=== PATIENT | female | born 2000 | race Caucasian/White ===

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

== ENCOUNTER → 2022-10-16 | Outpatient (CLI) | payer OTHER, SELFPAY ==
[2022-10-16 16:37] LABS: Erythrocyte Sedimentation Rate 1 mm/hr (0-30)
[2022-10-16 17:47] LABS: Amylase 59 U/L (25-115); CRP < 2.90 mg/L (0.0-3.0); Ferritin 33 ng/mL (8-252); Iron Binding Capacity,Total 385 ug/dL (250-450); LDH 166 U/L (84-246); Lipase 43 U/L (13-75); T4 Free Direct 1.01 ng/dL (0.76-1.46); Thyroid Stim Hormone (TSH) 0.82 uIU/mL (0.358-3.74)
[2022-10-22 22:06] LABS: Anti-Centromere B Ab <0.2 AI (0.0-0.9); Anti-Chromatin 0.2 AI (0.0-0.9); Anti-Jo <0.2 AI (0.0-0.9); Anti-Scleroderma-70 AB <0.2 AI (0.0-0.9); Anti-dsDNA Ab 1 IU/mL (0-9); Beef <0.10 kU/L (Class 0); Chocolate <0.10 kU/L (Class 0); Clam <0.10 kU/L (Class 0); Codfish <0.10 kU/L (Class 0); Corn <0.10 kU/L (Class 0); Egg, White <0.10 kU/L (Class 0); Egg, Whole <0.10 kU/L (Class 0); Milk (Cow) <0.10 kU/L (Class 0); Peanut <0.10 kU/L (Class 0); Pork <0.10 kU/L (Class 0); RNP Ab 1.1 AI (0.0-0.9); SCALLOP <0.10 kU/L (Class 0); SESAME SEED <0.10 kU/L (Class 0); SJOGREN'S Anti-SS-A test < 0.2 AI (0.0-0.9); SJOGREN'S Anti-SS-B test < 0.2 AI (0.0-0.9); Shrimp <0.10 kU/L (Class 0); Smith Ab <0.2 AI (0.0-0.9); Soybean <0.10 kU/L (Class 0); Walnut, (Food) <0.10 kU/L (Class 0); Wheat <0.10 kU/L (Class 0)
[2022-10-23 00:06] LABS: Albumin 4.1 g/dL (2.9-4.4); Alpha-1-Globulins 0.2 g/dL (0.0-0.4); Alpha-2-Globulins 0.8 g/dL (0.4-1.0); Cytoplasmic Ab (C-ANCA) <1:20 titer (Neg:<1:20); Endomysial Antibody IgA Negative (Negative); Immunoglobulin A 117 mg/dL (87-352); Immunoglobulin E 3 IU/mL (6-495); Immunoglobulin G 1035 mg/dL (586-1602); Immunoglobulin M 91 mg/dL (26-217); PROEL- TOTAL PROTEIN 6.9 g/dL (6.0-8.5); Perinuclear Ab (P-ANCA) <1:20 titer (Neg:<1:20); t-Transglutaminase IgA <2 U/mL (0-3)
== END | disposition home or self-care (01) ==
PROVIDERS: PCP Pediatrics; Referring Provider Internal Medicine Gastroenterology; Visit Provider Internal Medicine Gastroenterology
DX: R10.9 Unspecified abdominal pain (principal)
CPT/HCPCS: 36415; 82150; 82728; 82784; 82785; 83516; 83550; 83615; 83690; 84165; 84439; 84443; 85652; 86003; 86005; 86140; 86225; 86235; 86255; 86256; 86334

== ENCOUNTER → 2023-09-07 | Outpatient (CLI) | payer OTHER, SELFPAY | END | disposition home or self-care (01) | PROVIDERS: Visit Provider Physician Assistant | DX: N30.01 Acute cystitis with hematuria (principal) | CPT/HCPCS: 87086 ==

== ENCOUNTER → 2023-10-26 | Outpatient (CLI) | payer OTHER, SELFPAY ==
[2023-10-26 16:46] LABS: Mucous, Urine 0 SEEN /hpf (<or=2+)
[2023-10-26 17:23] LABS: Color, Urine Yellow (Yellow); Glucose, Dipstick Normal (Normal); Ketone-Dipstick Negative (Negative); Leukocyte Esterase-Dipstick 25 /ul (Negative); Nitrite-Dipstick Negative (Negative); Occult Blood-Urine 25 /ul (Negative); Protein-Dipstick Negative (Negative); Specific Gravity, Urine 1.015 (1.002-1.030); Urine Bilirubin Dipstick Negative (Negative); Urine Clarity Sl. Cloudy (Clear); Urine Urobilinogen Normal (Normal)
[2023-10-26 17:31] LABS: Amorphous Sediment 1+ URATE; Bacteria 1+ /hpf (None Seen); Red Blood Cells-Urine 0-5 SEEN /hpf (0-5); Squamous Epithelial Cells - UA 5-10 SEEN /hpf (5-10); Transitional Epithelial - Ur 0-5 SEEN /hpf (0-5); White Blood Cells 0-5 SEEN /hpf (0-5)
== END | disposition home or self-care (01) ==
LOC: LABSPEC 16:05
PROVIDERS: Referring Provider Physician Assistant; Visit Provider Physician Assistant
DX: R30.0 Dysuria (principal)
CPT/HCPCS: 81001; 87086; 87088

== ENCOUNTER 2023-12-22 21:55 | Emergency (ER) | payer OTHER, SELFPAY ==
[2023-12-22 21:56] VITALS: BP 148/98; PULSE 104; RESP 18; TEMP 36.1; O2SAT 100; BMI 26.2
--- NOTE | 2023-12-22 22:29 | EKG12_ITS ---
Test Reason : CP Blood Pressure : / mmHG Vent. Rate : 121 BPM Atrial Rate : 121 BPM P-R Int : 132 ms QRS Dur : 088 ms QT Int : 330 ms P-R-T Axes : 057 064 032 degrees QTc Int : 468 ms Sinus tachycardia Otherwise normal ECG Confirmed by GISELA NATHAN, STEPHEN ([id number]), newspaper managing editor TEMI ROMAN ([id number]) on 12/23/2023 1:56:20 PM Referred By: Confirmed By:STEPHEN HIGGINS MD
[2023-12-22] MEDS: Aspirin 81 MG TAB.CHEW 324 MG PO (22:33)
[2023-12-22 22:34] VITALS: O2SAT 100
--- NOTE | 2023-12-22 22:42 | RAD_ITS ---
STUDY: X-RAY CHEST REASON FOR EXAM: Female, 23 years old. chest pain TECHNIQUE: Single AP portable view of the chest. COMPARISON: None. FINDINGS: The lungs are clear and expanded. There is no demonstrated pleural abnormality. Normal size heart. Normal mediastinum and margie. Normal visualized pulmonary arteries. Normal visualized aortic arch and descending thoracic aorta. Normal visualized thoracic spine. Normal visualized ribs, clavicles, and shoulders. There is no demonstrated abnormality of the visualized soft tissue structures of the upper abdomen. RAD/Chest 1 View (Portable) IMPRESSION: Normal x-ray examination of the chest. Electronically Signed: Zana Mantilla MD at 23:04 EDT ,
[2023-12-22 22:46] LABS: Absolute Lymphocyte Count 3.36 X10^3/uL (0.83-4.51); Absolute Neutrophil Count 2.7 X10^3/uL (2.0-7.7); Basophil# 0.04 X10^3/uL; Basophil% 0.6 % (0-1); Eosinophil# 0.09 X10^3/uL; Eosinophils% 1.3 % (0-5); Hematocrit 41.3 % (37-47); Hemoglobin 13.9 g/dL (12.0-15.0); Lymphocyte # 3.36 X10^3/ul (0.83-4.51); Lymphocyte % 50.2 % (19-41); Mean Corp Hgb Conc 33.7 g/dL (32-36); Mean Corpuscular Hgb 29.4 pg (27.0-32.0); Mean Corpuscular Volume 87.5 fL (81-99); Mean Platelet Vol. 10.4 fl (6.2-12.0); Monocyte# 0.51 X10^3/uL; Monocyte% 7.6 % (0-10); NRBC Flagged by Analyzer 0 % (0-5); Neutrophil # 2.67 X10^3/uL (2.7-7.7); Platelet Count 233 K/mm3 (150-450); RBC Distribution Width CV 12.1 % (11.6-14.6); RBC Distribution Width SD 39.3 fl (35.1-43.9); Red Blood Count 4.72 M/mm3 (4.2-5.4); White Blood Count 6.7 K/mm3 (4.4-11.0)
[2023-12-22 22:56] LABS: D-Dimer Quantitative (DVT/PE) < 0.27 FEU/ug/m (0.27-0.49)
--- NOTE | 2023-12-22 23:05 | ED.VIS.CHEST ---
HPI History of Present Illness Chief Complaint: Chest Pain [facility] Medical History Pneumonia Head ache Gastrointestinal problem Bone fracture Urinary tract infection Concussion without loss of consciousness, initial encounter Asthma Home Medications ?Medication ?Instructions ?Recorded ?Last Taken ?Type drospirenone 3 mg-ethinyl 1 tab PO QDAY 10/06/23 Unknown History estradiol 0.02 mg tablet (Vestura (28)) sumatriptan succinate 25 mg tablet See Rx Instructions PO .COMPLEX 10/06/23 Unknown Rx (Imitrex) #10 tabs Allergy/AdvReac Type Severity Reaction Status Date / Time No Known Allergies Allergy Verified 12/22/23 21:56 Family History Father Type 1 diabetes Hypertension Mother Hypertension Grandfather Cancer prostate Grandmother Cancer uterine Surgical History History of reduction of closed dislocation H/O rhinoplasty Social History household members: family housing: house current occupational status: employed and 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 current occupation: [employer], attending [employer] Smoking Status: Never smoker Electronic Cigarette Use: not used alcohol intake: never substance use type: does not use what type of physical activity do you participate in: walking frequency: 3-4 times per week seatbelt use: always do you feel safe at home: Yes EXAM Physical Exam Const Vital Signs: 12/22/23 21:56 12/22/23 22:34 Temperature 97 F L Temperature Source Temporal Pulse Rate 104 H Respiratory Rate 18 Blood Pressure 148/98 H Blood Pressure Mean 114 Pulse Ox 100 100 Oxygen Delivery Method Room Air Room Air MDM MDM MDM Narrative Medical decision making narrative: HISTORY OF PRESENT ILLNESS: 23-year-old female presents with chest pain. She notes acute onset of left side chest pain is sharp worse with deep breath. It is not exertional. Denies any bleeding diathesis. Denies any cough fever chills. Denies any vomiting or diarrhea. Denies any family history of early premature cardiac . Denies smoking cigarettes endorses taking estrogen based from oral contraceptives. Patient denies sudden onset of pain, no tearing sensation, no migratory symptoms, no new numbness, weakness or loss of sensation. Patient denies family history or personal history of Marfan syndrome or Stormy-Danlos. The patient denies recent surgery in the last 4 weeks or immobilization in the last 3 days, denies previous diagnosis of DVT or PE, hemoptysis, unilateral leg swelling or malignancy with treatment the last 6 months. REVIEW OF SYSTEMS: All other systems reviewed and are negative except as noted in the history of present illness. At least 10 review of systems reviewed and are negative except as noted in history of present illness. PHYSICAL EXAM: Nursing triage notes reviewed, Vital signs reviewed Constitutional: please see mdm HENT: MMM Eyes: Pupils equal round and reactive to light, Extraocular muscles intact Neck: No stridor, no JVD, full neck ROM Lungs: Clear to auscultation, No wheezing or rales. No increased work of breathing, no conversational dyspnea, no accessory muscle use, no nasal flaring. No respiratory distress noted Heart: Regular rate and rhythm, No murmurs, No rubs and No gallops, 2+ distal pulses (radial, femoral, posterior tibial) in all extremities Abdomen: Soft, there is no tenderness, rigidity, rebound or guarding, no obvious peritoneal signs, no palpable pulsatile abdominal masses, no auscultated abdominal bruit : No CVAT Extremities: No edema Neuro: No focal neurological deficits, cranial nerves II through XII intact, 5/5 strength in all extremities. Intact sensation to light touch in all extremities, 2+ reflexes bilateral patella tendons. Normal gait. No ataxia. Skin: No rash or lesions noted MEDICAL DECISION MAKING: Chief Complaint: Chest pain External records reviewed: No recent adVanced imaging of the chest Factors affecting care: None Social determinants of health: Denies smoking or illicit drug use History obtained from others: Patient's mother Consults: none [facility] Narrative: The patient was initially tachycardic rate of 104 otherwise hemodynamically stable, afebrile and nontoxic-appearing. No focal cardiopulmonary abnormalities noted. I considered the following differential diagnosis: ACS, arrhythmia, anemia, electrolyte abnormality, pneumonia, pneumothorax, GI etiology, PE Patient was treated with initially with oral aspirin PE less likely given low risk Wells score. I consider obtaining a CT of the chest however thought this was not necessary given low risk Wells score and negative D-dimer. Aortic dissection is thought to be less likely given no sudden ripping or tearing pain, migratory pain, palpable pulse inequalities, no focal neurologic deficits concurrent with chest pain. Chance of dissection less than 04/1999. I considered obtaining a CTA of the chest abdomen pelvis however thought this not indicated given lack of findings as previously stated. Pericarditis less likely given no pathognomonic EKG changes (no diffuse ST elevations, CO depressions). GI etiology (i.e. Boerhaave syndrome) less likely given no chest or neck crepitus, no vomiting or forced retching. I obtained a broad lab and imaging workup to further elucidate etiology of patient's complaints including ruling out signs of ACS, arrhythmia, anemia, electrolyte abnormality, pneumonia, pneumothorax. ALL IMAGES (IF OBTAINED) HAVE BEEN PERSONALLY REVIEWED AND INTERPRETED BY MYSELF. EKG with initial rate of 121, sinus tachycardia, normal axis, normal intervals, no STEMI, no stigmata pericarditis, ARVD, WPW, Brugada syndrome CBC without leukocytosis, severe anemia, no thrombocytopenia. D-dimer negative making VTE less likely I have personally reviewed the patient's chest x-ray. Chest x-ray is unremarkable for pulmonary edema, pneumothorax, pneumonia or focal cardiopulmonary abnormality. BMP without septic electrolyte maladies, noted mild hypokalemia which was replaced with oral potassium, no JONNY High-sensitivity troponin is negative, no evidence of myocardial ischemia awaiting delta troponin I completed a HEART Score to screen for Major Adverse Cardiac Event (MACE) in this patient. The evidence indicates that the patient is very low risk for MACE and this is consistent with my clinical intuition. The risk of further workup or hospitalization for MACE is likely higher than the risk of the patient having a MACE. It is, therefore, in the patient?s best interest not to do additional emergent testing or to be hospitalized for MACE at this time. Shared Decision-Making No hospitalization indicated I have discussed with the patient my clinical impression and the result of the HEART Score to screen for MACE, as well as the risks of further testing and hospitalization. The HEART Score shows that the risk for MACE is less than 1%. Although the risk of MACE has not been completely eliminated, the risks of further testing or hospitalization for MACE likely exceed any potential benefit, and the patient agrees with not pursuing further emergent evaluation or hospitalization for MACE at this time. The patient and/or family, caregivers express understanding. The patient and/or family, caregivers agrees with the plan. Total critical care time today provided was at least 0 minutes. This excludes separately billable procedures. Critical care time (if documented) is secondary to the patient having high probability of clinically significant/life threatening deterioration in the patient's condition which required my urgent intervention. Impression: 1. Chest pain 2. Tachycardia 3. Hypokalemia Disposition: Pending delta troponin and p.m. physician disposition (if ultrasound is negative patient be appropriate discharge home. If positive will require reevaluation and final disposition) Narinder Barrera, Lab Data Labs: Laboratory Results - last 24 hr 12/22/23 22:18 WBC 6.7 RBC 4.72 Hgb 13.9 Hct 41.3 MCV 87.5 MCH 29.4 MCHC 33.7 RDW Std Deviation 39.3 RDW Coeff of Stuart 12.1 Plt Count 233 MPV 10.4 Immature Gran % (Auto) 0.300 Neut % (Auto) 40.0 L Lymph % (Auto) 50.2 H [place] % (Auto) 7.6 Eos % (Auto) 1.3 Baso % (Auto) 0.6 Absolute Neuts (auto) 2.7 Absolute Lymphs (auto) 3.36 Nucleated RBC % 0 D-Dimer Quant (PE/DVT) < 0.27 L Sodium 138 Potassium 3.2 L Chloride 104 Carbon Dioxide 27.0 Anion Gap 7 BUN 17 Creatinine 1.09 H Estim Creat Clear Calc 98.83 Est GFR (MDRD) Af Amer 81 Est GFR (MDRD) Non-Af 67 BUN/Creatinine Ratio 15.6 Glucose 94 Calcium 9.6 Troponin I High Sens < 3 L Radiography Diagnostic Testing: Clinical Impression(s) from Imaging Studies Chest X-Ray 12/22/23 22:42 IMPRESSION: Normal x-ray examination of the chest. Electronically Signed: Zana Mantilla MD at 23:04 EDT , Discharge Plan Triage Chief Complaint: Chest Pain ED Provider: Narinder Barrera Dx/Rx/DC Orders Prescriptions: No Action drospirenone-ethinyl estradiol [Vestura (28)] 3-0.02 mg tablet 1 tab PO QDAY sumatriptan succinate [Imitrex] 25 mg tablet See Rx Instructions PO .COMPLEX Qty: 10 0RF Rx Instructions: take 1 tab at onset of headache; if no relief may repeat 1 tab after at least 2 hrs; max = 4 tabs/24 hr PO Primary Care Provider: Benita Flores Referrals: Benita Flores MD [Primary Care Provider] - Print Language: Greek
[2023-12-22 23:06] LABS: Anion Gap 7 (5-15); BUN 17 mg/dL (7-18); BUN/Creat Ratio 15.6 RATIO (10-20); Calcium,Total 9.6 mg/dL (8.5-10.1); Chloride 104 mmol/L (98-107); Creatinine, Serum 1.09 mg/dL (0.55-1.02); EST Glomerular Filtration Rate 67 mL/min (>60); Est Glom Filt Rate - Afr Amer 81 mL/min (>60); Estimated Creatinine Clearance 98.83 ml/min; Glucose 94 mg/dL (74-106); Potassium 3.2 mmol/L (3.5-5.1); Sodium Level 138 mmol/L (136-145); Troponin-I HS (w/2H Reflex) < 3 pg/mL (3.0-54.0)
[2023-12-22] MEDS: Potassium Chloride Oral Tablet 20 MEQ 40 MEQ PO (23:28)
[2023-12-22 23:50] LABS: Bacteria 0 SEEN /hpf (None Seen); Mucous, Urine 0 SEEN /hpf (<or=2+); Red Blood Cells-Urine 0 SEEN /hpf (0-5); Squamous Epithelial Cells - UA 0 SEEN /hpf (5-10); White Blood Cells 0 SEEN /hpf (0-5)
[2023-12-22 23:56] LABS: Color, Urine Yellow (Yellow); Glucose, Dipstick Normal (Normal); Ketone-Dipstick Negative (Negative); Leukocyte Esterase-Dipstick Negative /ul (Negative); Nitrite-Dipstick Negative (Negative); Occult Blood-Urine 10 /ul (Negative); Protein-Dipstick Negative (Negative); Specific Gravity, Urine 1.005 (1.002-1.030); Urine Bilirubin Dipstick Negative (Negative); Urine Clarity Clear (Clear); Urine Urobilinogen Normal (Normal)
[2023-12-23 00:05] VITALS: BP 133/77; PULSE 85; RESP 16; O2SAT 100
[2023-12-23 00:24] LABS: Reflex Troponin-HS? (from REC) Y
[2023-12-23 00:50] LABS: Troponin-I HS < 3 pg/mL (3.0-54.0)
[2023-12-23 01:00] VITALS: BP 132/66; PULSE 90; RESP 16; TEMP 36.6; O2SAT 100
== END 2023-12-23 01:12 | disposition home or self-care (01) ==
PROVIDERS: Emergency Provider Emergency Medicine; PCP Internal Medicine; Visit Provider Emergency Medicine
DX: R07.9 Chest pain, unspecified (principal); E87.6 Hypokalemia; F17.210 Nicotine dependence, cigarettes, uncomplicated; R00.0 Tachycardia, unspecified
CPT/HCPCS: 71045; 80048; 81001; 84484; 85025; 85379; 93005; 99284; A4216

== ENCOUNTER → 2024-01-17 | Outpatient (CLI) | payer OTHER, SELFPAY ==
[2024-01-24 09:06] LABS: HPV Reflexed? NOT INDICATED
== END | disposition home or self-care (01) ==
PROVIDERS: PCP Internal Medicine; Referring Provider Obstetrics & Gynecology; Visit Provider Obstetrics & Gynecology
DX: Z12.4 Encounter for screening for malignant neoplasm of cervix (principal)
CPT/HCPCS: 88175; G0145

== ENCOUNTER 2024-01-20 17:56 | Emergency (ER) | payer OTHER, SELFPAY ==
[2024-01-20 17:58] VITALS: BP 129/86; PULSE 113; RESP 18; TEMP 36.3; O2SAT 100; BMI 26.0
--- NOTE | 2024-01-20 19:13 | EKG12_ITS ---
Test Reason : DYSRHYTHMIA Blood Pressure : / mmHG Vent. Rate : 101 BPM Atrial Rate : 101 BPM P-R Int : 138 ms QRS Dur : 088 ms QT Int : 340 ms P-R-T Axes : 067 082 057 degrees QTc Int : 440 ms Sinus tachycardia Otherwise normal ECG Confirmed by GISELA NATHAN, STEPHEN ([id number]), editor continuity and script OSMAR SINHA ([id number]) on 01/21/2024 2:05:38 PM Referred By: Francisco Lugo Confirmed By:STEPHEN HIGGINS MD
--- NOTE | 2024-01-20 19:35 | RAD_ITS ---
INDICATION: chest pain EXAMINATION/TECHNIQUE: X-RAY - XR Chest 1 View COMPARISON: None. FINDINGS: The lungs are clear. The cardiomediastinal silhouette is unremarkable. No pleural effusion or pneumothorax. No acute osseous abnormalities. RAD/Chest 1 View (Portable) IMPRESSION: No acute radiographic abnormalities. Electronically Signed: Ramiro Parrish MD at 20:43 EDT ,
[2024-01-20 19:43] VITALS: O2SAT 100
[2024-01-20] MEDS: 0.9% Normal Saline (1000mL) 1,000 ML 999 ML IV (19:43)
[2024-01-20 19:48] LABS: Absolute Lymphocyte Count 1.29 X10^3/uL (0.83-4.51); Absolute Neutrophil Count 3.8 X10^3/uL (2.0-7.7); Basophil# 0.05 X10^3/uL; Basophil% 0.9 % (0-1); Eosinophil# 0.01 X10^3/uL; Eosinophils% 0.2 % (0-5); Hematocrit 43.3 % (37-47); Hemoglobin 14.8 g/dL (12.0-15.0); Lymphocyte # 1.29 X10^3/ul (0.83-4.51); Lymphocyte % 23.4 % (19-41); Mean Corp Hgb Conc 34.2 g/dL (32-36); Mean Corpuscular Hgb 29.3 pg (27.0-32.0); Mean Corpuscular Volume 85.7 fL (81-99); Mean Platelet Vol. 10.1 fl (6.2-12.0); Monocyte% 7.2 % (0-10); NRBC Flagged by Analyzer 0 % (0-5); Neutrophil # 3.76 X10^3/uL (2.7-7.7); Neutrophil % 68.1 % (47-70); Platelet Count 259 K/mm3 (150-450); RBC Distribution Width CV 11.9 % (11.6-14.6); RBC Distribution Width SD 37.2 fl (35.1-43.9); Red Blood Count 5.05 M/mm3 (4.2-5.4); White Blood Count 5.5 K/mm3 (4.4-11.0)
--- NOTE | 2024-01-20 20:14 | EDS_ITS ---
HPI History of Present Illness Chief Complaint: Anxiety Narrative Narrative: Patient is a 24-year-old female with no known significant past medical history who presented to the emergency department the chief complaint of chest pain. Patient states that earlier this evening after coming home from school she developed left-sided chest pain and became very anxious and had a panic attack thought that she may be having a heart attack. Patient states that she is not a think this had before. Patient denies any recent travel history. Patient notes that her pain is improved. Patient states that she was sick about a week ago. [facility] Medical History Pneumonia Head ache Gastrointestinal problem Bone fracture Urinary tract infection Concussion without loss of consciousness, initial encounter Asthma Home Medications ?Medication ?Instructions ?Recorded ?Last Taken ?Type sumatriptan succinate 25 mg tablet See Rx Instructions PO .COMPLEX 10/06/23 Unknown Rx (Imitrex) #10 tabs drospirenone 3 mg-ethinyl 1 tab PO QDAY #28 tabs 01/17/24 Unknown Rx estradiol 0.02 mg tablet (Vestura (28)) escitalopram oxalate 10 mg tablet 10 mg PO DAILY 01/20/24 Unknown History Allergy/AdvReac Type Severity Reaction Status Date / Time No Known Allergies Allergy Verified 01/20/24 18:01 Family History Father Type 1 diabetes Hypertension Mother Hypertension Grandfather Cancer prostate Grandmother Cancer uterine Surgical History History of reduction of closed dislocation H/O rhinoplasty Social History adopted: No household members: family housing: house number of children: 0 current occupational status: employed and 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 current occupation: [employer], attending [employer] sexually active: Yes Smoking Status: Never smoker Electronic Cigarette Use: not used alcohol intake: never substance use type: does not use what type of physical activity do you participate in: walking frequency: 3-4 times per week seatbelt use: always do you feel safe at home: Yes additional social history: Boyfriend - Ab ROS ROS ED ROS Narrative Constitutional: Complains of lightheadedness denies fevers, chills, headaches, dizziness Eyes: Denies change in vision double vision blurry vision Cardiovascular: Denies chest pain or palpitations Respiratory: Denies coughing wheezing shortness of breath Abdomen: Denies any abdominal pain nausea vomit diarrhea : Denies any urinary symptoms Neurological: Denies any numbness, weakness, tingling Musculoskeletal: Denies back pain Skin: Denies rashes or lesions EXAM Physical Exam Narrative Exam Narrative: General: Patient lying in bed rest comfortably did not appear to be in acute distress Head: Atraumatic, normocephalic Eyes: PERRL bilateral, EOMI bilateral, no conjunctival injection noted Neck: Soft, supple, trach midline Cardiovascular: Patient tachycardic with a regular rhythm Respiratory: Clear to auscultation bilaterally Abdomen: Soft, nondistended, nontender to palpation can bowel sounds present x 4 Extremities: +5/5 strength noted in the bilateral lower extremities, no pedal edema no exam Neurological: Patient following commands knew that she was at [facility] years 2023 Skin: Warm, dry, intact Const Vital Signs: 01/20/24 17:58 01/20/24 19:43 Temperature 97.3 F L Temperature Source Oral Pulse Rate 113 H Respiratory Rate 18 Blood Pressure 129/86 H Blood Pressure Mean 100 Pulse Ox 100 100 Oxygen Delivery Method Room Air Room Air MDM MDM MDM Narrative Medical decision making narrative: Patient is a 24-year-old female who presents to the emergency department with a chief complaint of left-sided chest pain, lightheadedness. Patient will have ordered performed here on the differential diagnose includes but limited to ACS, anxiety, panic attack, pneumonia, upper respiratory infection second viral etiology. Once workup is obtained reviewed she will be reevaluated. Patient's for members at bedside states that there is no early cardiac in the family. Patient's CBC reviewed and was largely unremarkable no evidence leukocytosis white blood count normal at 5.5, hemoglobin stable 14.8, platelet count normal at 259. Patient sodium normal 139, potassium normal 3.5, creatinine was normal at 1.02. Patient's troponin was less than 3, TSH normal at 1.76. Patient's EKG reviewed and showed sinus tachycardia with a rate of 101 bpm. Patient's urinalysis reviewed and showed no evidence of infection negative test. Patient chest x-ray reviewed and showed no acute radiographic abnormalities. On reevaluation of the patient when I entered the room the patient's heart rate was noted to be normal at 92 beats per minutes. After further discussion with her she became anxious again and her heart rate was in the low 100s. After she calm down some while in the room her heart rate normalized again. Patient was encouraged to follow-up with her primary care physician outpatient setting. She was encouraged return with worsening symptoms or any concerns. Her and her family members at bedside are agreeable this plan would like to go home at this point time all question concerns answered she was discharged home in stable condition. Lab Data Labs: Laboratory Results - last 24 hr 01/20/24 01/20/24 18:09 19:35 WBC 5.5 RBC 5.05 Hgb 14.8 Hct 43.3 MCV 85.7 MCH 29.3 MCHC 34.2 RDW Std Deviation 37.2 RDW Coeff of [place] 11.9 Plt Count 259 MPV 10.1 Immature Gran % (Auto) 0.200 Neut % (Auto) 68.1 Lymph % (Auto) 23.4 Stewart % (Auto) 7.2 Eos % (Auto) 0.2 Baso % (Auto) 0.9 Absolute Neuts (auto) 3.8 Absolute Lymphs (auto) 1.29 Nucleated RBC % 0 Sodium 139 Potassium 3.5 Chloride 107 Carbon Dioxide 27.0 Anion Gap 5 BUN 17 Creatinine 1.02 Estim Creat Clear Calc 96.69 Est GFR (MDRD) Af Amer 87 Est GFR (MDRD) Non-Af 72 BUN/Creatinine Ratio 16.7 Glucose 121 H Calcium 9.5 Troponin I High Sens < 3 L TSH 1.760 Urine Color Yellow Urine Clarity Sl. Cloudy Urine pH 6.0 Ur Specific [place] 1.010 Urine Protein 500 H Urine Glucose (UA) Normal Urine Ketones Negative Urine Occult Blood 150 H Urine Nitrite Negative Urine Bilirubin Negative Urine Urobilinogen Normal Ur Leukocyte Esterase Negative Urine RBC 0 SEEN Urine WBC 0-5 SEEN Ur Squamous Epith Cells 5-10 SEEN Urine Bacteria 0 SEEN Urine Mucus 0 SEEN Urine Test Negative Radiography Diagnostic Testing: Clinical Impression(s) from Imaging Studies Chest X-Ray 01/20/24 19:35 IMPRESSION: No acute radiographic abnormalities. Electronically Signed: Ramiro Parrish MD at 20:43 EDT , Discharge Plan Triage Chief Complaint: Anxiety ED Provider: Francisco Lugo Dx/Rx/DC Orders Clinical Impression: Chest pain Prescriptions: No Action drospirenone-ethinyl estradiol [Vestura (28)] 3-0.02 mg tablet 1 tab PO QDAY Qty: 28 12RF sumatriptan succinate [Imitrex] 25 mg tablet See Rx Instructions PO .COMPLEX Qty: 10 0RF Rx Instructions: take 1 tab at onset of headache; if no relief may repeat 1 tab after at least 2 hrs; max = 4 tabs/24 hr PO escitalopram oxalate 10 mg tablet 10 mg PO DAILY Patient Comments: Pt. has not taken it yet Primary Care Provider: Benita Flores Referrals: Benita Flores MD [Primary Care Provider] - Activity Restrictions/Additional Instructions: Follow-up your primary care physician in the outpatient setting. Return with worsening symptoms or other concerns. Print Language: Danish Disposition Disposition: Home, Self Care
[2024-01-20 20:18] LABS: Anion Gap 5 (5-15); BUN 17 mg/dL (7-18); BUN/Creat Ratio 16.7 RATIO (10-20); Calcium,Total 9.5 mg/dL (8.5-10.1); Chloride 107 mmol/L (98-107); Creatinine, Serum 1.02 mg/dL (0.55-1.02); EST Glomerular Filtration Rate 72 mL/min (>60); Est Glom Filt Rate - Afr Amer 87 mL/min (>60); Estimated Creatinine Clearance 96.69 ml/min; Glucose 121 mg/dL (74-106); Potassium 3.5 mmol/L (3.5-5.1); Sodium Level 139 mmol/L (136-145); Troponin-I HS < 3 pg/mL (3.0-54.0)
[2024-01-20 20:30] LABS: Bacteria 0 SEEN /hpf (None Seen); Mucous, Urine 0 SEEN /hpf (<or=2+); Red Blood Cells-Urine 0 SEEN /hpf (0-5)
[2024-01-20 20:45] LABS: Color, Urine Yellow (Yellow); Glucose, Dipstick Normal (Normal); Ketone-Dipstick Negative (Negative); Leukocyte Esterase-Dipstick Negative /ul (Negative); Nitrite-Dipstick Negative (Negative); Urine Bilirubin Dipstick Negative (Negative); Urine Urobilinogen Normal (Normal)
[2024-01-20 20:48] LABS: Occult Blood-Urine 150 /ul (Negative); Protein-Dipstick 500 mg/dl (Negative); Urine Clarity Sl. Cloudy (Clear)
[2024-01-20 21:04] LABS: Internal QC Validated? YES +Cl - CLEAR BKGD; Pregnancy, Urine Negative Negative; Record Kit Lot#,Urine Preg 772476
[2024-01-20 21:08] LABS: Squamous Epithelial Cells - UA 5-10 SEEN /hpf (5-10); White Blood Cells 0-5 SEEN /hpf (0-5)
[2024-01-20 21:23] VITALS: BP 120/86; PULSE 98; RESP 16; TEMP 36.6; O2SAT 100
== END 2024-01-20 21:24 | disposition home or self-care (01) ==
PROVIDERS: Emergency Provider Emergency Medicine; PCP Internal Medicine; Referring Provider Emergency Medicine; Visit Provider Emergency Medicine
DX: F41.9 Anxiety disorder, unspecified (principal); R07.9 Chest pain, unspecified
CPT/HCPCS: 71045; 80048; 81001; 81025; 84443; 84484; 85025; 93005; 96360; 99285; J7030; A4216

== ENCOUNTER → 2024-01-26 | Outpatient (CLI) | payer OTHER, SELFPAY ==
[2024-01-26 10:21] LABS: Mucous, Urine 0 SEEN /hpf (<or=2+)
[2024-01-26 12:35] LABS: Color, Urine Yellow (Yellow); Glucose, Dipstick Normal (Normal); Ketone-Dipstick Negative (Negative); Leukocyte Esterase-Dipstick 25 /ul (Negative); Nitrite-Dipstick Negative (Negative); Occult Blood-Urine 10 /ul (Negative); Protein-Dipstick 15 mg/dl (Negative); Urine Bilirubin Dipstick Negative (Negative); Urine Clarity Sl. Cloudy (Clear); Urine Urobilinogen Normal (Normal)
[2024-01-26 12:59] LABS: Bacteria 2+ /hpf (None Seen); Red Blood Cells-Urine 0-5 SEEN /hpf (0-5); Squamous Epithelial Cells - UA 0-5 SEEN /hpf (5-10); White Blood Cells 0-5 SEEN /hpf (0-5)
[2024-01-26 13:15] LABS: Erythrocyte Sedimentation Rate 1 mm/hr (0-30)
[2024-01-26 13:36] LABS: ALB/GLOB Ratio 0.9 RATIO (0.9-2.4); AST(SGOT) 12 U/L (15-37); Alanine Aminotransfer ALT/SGPT 18 U/L (13-56); Albumin, Serum 3.7 g/dL (3.2-5.0); Alkaline Phosphatase 57 U/L (45-117); Anion Gap 9 (5-15); BUN 17 mg/dL (7-18); BUN/Creat Ratio 17.4 RATIO (10-20); CRP 6.15 mg/L (0.0-3.0); Calcium,Total 9.5 mg/dL (8.5-10.1); Chloride 105 mmol/L (98-107); Creatinine, Serum 0.98 mg/dL (0.55-1.02); EST Glomerular Filtration Rate 76 mL/min (>60); Est Glom Filt Rate - Afr Amer 91 mL/min (>60); Globulin 3.9 g/dL (2.2-4.2); Glucose 121 mg/dL (74-106); Potassium 4.1 mmol/L (3.5-5.1); Protein, Total 7.6 g/dL (6.4-8.2); Sodium Level 138 mmol/L (136-145)
[2024-01-27 16:10] LABS: Anti-Centromere B Ab <0.2 AI (0.0-0.9); Anti-Chromatin <0.2 AI (0.0-0.9); Anti-Jo <0.2 AI (0.0-0.9); Anti-Nuclear Antibody Test Positive (.); Anti-Scleroderma-70 AB <0.2 AI (0.0-0.9); Anti-dsDNA Ab 1 IU/mL (0-9); RNP Ab 0.9 AI (0.0-0.9); SJOGREN'S Anti-SS-A test < 0.2 AI (0.0-0.9); SJOGREN'S Anti-SS-B test < 0.2 AI (0.0-0.9); Smith Ab <0.2 AI (0.0-0.9)
== END | disposition home or self-care (01) ==
PROVIDERS: PCP Internal Medicine; Referring Provider Internal Medicine; Visit Provider Internal Medicine
DX: G43.109 Migraine with aura, not intractable, without status migrainosus (principal); R07.9 Chest pain, unspecified; R00.0 Tachycardia, unspecified; R80.9 Proteinuria, unspecified
CPT/HCPCS: 36415; 80053; 81001; 85652; 86038; 86140; 86225; 86235

== ENCOUNTER → 2024-02-15 | Outpatient (CLI) | payer OTHER, SELFPAY ==
[2024-02-15 09:39] LABS: Internal QC Validated? YES +Cl - CLEAR BKGD; Pregnancy, Serum, hCG Quali. NEGATIVE Negative
--- NOTE | 2024-02-15 13:19 | PCM.TILTTABL ---
Staff Staff: Lianet May and Vandana King Summary Pre Test Resting HR: 115 Pre Test Resting BP: 131/87 Minimum Test HR: 65 Maximum Test HR: 166 Minimum Test BP: 0/0 Maximum Test BP: 140/102 Reason for Test Termination: Syncope Physician Tilt Table Report Patient's Physicians Primary Care Physician: Benita Flores Indications/Diagnosis: Tachycardia Procedure Comments: Patient was brought to the noninvasive lab in the postabsorptive nonsedated state. Informed consent was obtained. Resting heart rate and blood pressure was obtained. The patient was then prepped in the 70 degree head upright tilt position. The heart rate immediately edith from 98 bpm 264 bpm and then to 166 bpm. Blood pressure was initially 131/87 and edith to a peak of 132/89. The patient then suddenly dropped her heart rate and blood pressure to the 70s became clammy and passed out. Patient was then put back in the recumbent position with heart rate improving back to 77 bpm and blood pressures remained in the 120s. Posttest the patient's heart rate was 99 bpm and blood pressure of 130/88 mmHg. Summary: Head upright tilt test suggestive of postural orthostatic tachycardia syndrome.
[2024-02-15 16:59] VITALS: BP 131/87
[2024-02-15 17:05] VITALS: BP 0/0; BP 140/102
== END | disposition home or self-care (01) ==
LOC: CVS 08:58
PROVIDERS: PCP Internal Medicine; Referring Provider Internal Medicine; Visit Provider Internal Medicine
DX: R00.0 Tachycardia, unspecified (principal)
CPT/HCPCS: 36415; 84703; 93660; J7040; A4216

== ENCOUNTER → 2024-05-04 | Outpatient (CLI) | payer BC, SELFPAY | END | disposition home or self-care (01) | LOC: LABSPEC 09:03 | PROVIDERS: PCP Internal Medicine; Referring Provider Internal Medicine; Visit Provider Internal Medicine | DX: J01.90 Acute sinusitis, unspecified (principal) | CPT/HCPCS: 87631 ==

== ENCOUNTER → 2024-07-20 | Outpatient (CLI) | payer BC, SELFPAY | END | disposition home or self-care (01) | LOC: LABSPEC 08:44 | PROVIDERS: PCP Internal Medicine; Visit Provider Internal Medicine | DX: J01.90 Acute sinusitis, unspecified (principal) | CPT/HCPCS: 87631 ==

== ENCOUNTER → 2024-12-19 | Outpatient (CLI) | payer BC, SELFPAY ==
[2024-12-19 17:09] LABS: Follicle Stimulating Hormone 9.1 mIU/mL
[2024-12-19 17:13] LABS: hCG Titer Quant., Serum < 1 mIU/mL (<9 non-preg)
--- OUTSIDE RECORDS SUMMARY | 2024-12-19 23:17 | XMS RPT_ITS | CCD ---
Author Organization [facility] Care Team Providers Care Press Loader Name Role Phone Francine NATHAN, Viral Valenzuela Unavailable Marivel SHOE SHANKERDebbie N Unavailable Jaylan Vasquez Unavailable Cogar SHOE SHANKER, Debbie N Unavailable [phone] Nick SHOE SHANKER, Neelima N Unavailable Unavailab le Nick SHOE SHANKER, Neelima N Unavailable Unavailab le Adarhs [phone], [place] [phone] Con sulting Unavailable NONE, NONE Primary Care Unavailable EDMOND HARRELL MD Attending Unavailable EDMOND HARRELL MD Admitting Unavailable [employer]OL OFFICER, DAVE E Consulting Unavailable NONE, NONE Consulting Unavailable Dr. Georgia Suazo Primary Care Provider Dr. Georgia Suazo Referring Provider OSCAR Siddiqui Attending Provider OSCAR Vasquez Attending Provider Gael Flores MD Unavailable Dr. Gael Flores MD Primary Care Provider Dr. Gael Flores MD Attending Provider Dr. Gael Flores MD Referring Provider Svetlana Quiroga Attending Provider [phone] Oscar NATHAN, Dr. Saxena Attending Provider CHAYITO PAIGE Attending Unavailable GAEL FLORES Referring Unavailable Svetlana Rao Attending Unavailable Gael Flores Primary Care Unavailable Mark, Gael Referring Unavailable Mukwonago, Gael Primary Care Unavailable Oscar, Bettles Field Attending Unavailable Mukwonago, Gael Referring Unavailable Mukwonago, Gael Primary Care Unavailable Jyotsna Oneal Attending Unavailable Mukwonago, Gael Primary Care Unavailable Oscar, Bettles Field Attending Unavailable Mark, Gael Referring Unavailable Mark, Gael Primary Care Unavailable Mark, Gael Attending Unavailable Mukwonago, Gael Attending Unavailable Mukwonago, Gael Primary Care Unavailable Mark, Gael Referring Unavailable Jyotsna Oneal Attending Unavailable Georgia Suazo Referring Unavailable Mark, Gael Primary Care Unavailable Jyotsna Oneal Attending Unavailable Mukwonago, Gael Primary Care Unavailable Jyotsna Oneal Referring Unavailable Mukwonago, Gael Referring Unavailable Mark, Gael Primary Care Unavailable Mukwonago, Gael Consulting Unavailable Oscar, Bettles Field Attending Unavailable Svetlana Rao Attending Unavailable Mark, Gael Primary Care Unavailable Mukwonago, Gael Referring Unavailable Narinder Barrera Attending Unavailable Mukwonago, Gael Primary Care Unavailable Lugo, Francisco Referring Unavailable Lugo, Francisco Attending Unavailable Mark, Gael Primary Care Unavailable Mark, Gael Primary Care Unavailable Mark, Gael Attending Unavailable Mark, Gael Referring Unavailable Mark, Gael Primary Care Unavailable Mukwonago, Gael Attending Unavailable Mukwonago, Gael Referring Unavailable Mukwonago, Gael Attending Unavailable Mukwonago, Gael Primary Care Unavailable Mark, Gael Primary Care Unavailable Assessment, Health Risk Referring Unavaila ble Assessment, Health Risk Attending Unavaila ble Mukwonago, Gael Primary Care Unavailable Mark, Gael Referring Unavailable Mark, Gael Attending Unavailable Mukwonago, Gael Referring Unavailable Mark, Gael Primary Care Unavailable Mark, Gael Attending Unavailable Mukwonago, Gael Referring Unavailable Mark, Gael Primary Care Unavailable Mark, Gael Attending Unavailable Mark, Gael Referring Unavailable Mukwonago, Gael Attending Unavailable Mukwonago, Gael Primary Care Unavailable Health, Employee Attending Provider Mark NATHAN, Dr. Joy Primary Care Provider Mark NATHAN, Dr. Joy Referring Provider Kimmy NATHAN, Dr. Goyal Attending Provider Kimmy NATHAN, Dr. Goyal Referring Provider [phone] Medications Current Medications Medication Drug Class(es) Dates Sig (Normalized) Sig (Original) Compression Socks, Medium misc (4 sources) Start: 02-22-2024 Compression Socks, Medium misc Active 0 .Route 2 February 22, 2024 1:35pm POTS As directed Start: 02-22-2024 Compression So cks, Medium misc Active 0 .Route 2 February 22, 2024 1:35pm As directed Start: 02-22-2024 End: 02-22-2024 Compression Socks, Medium mi sc Discontinued 0 .Route 2 February 22, 2024 1:00am February 22, 2024 1:36pm POTS As directed Start: 02-22-2024 End: 02-22-2024 Compression Socks, Medium mi sc Discontinued 0 .Route 2 February 22, 2024 1:00am February 22, 2024 1:36pm As directed Drospirenone-Ethinyl Estradiol (6 sources) Progestin, Estrogen Start: 01-17-2024 take 3 tablets by mouth once daily Drospirenone-Ethinyl Estradiol (Vestura (28)) 3-0.02 mg tablet Active 1 {tbl} PO daily 15 04January 17, 2024 12:11pm Start: 01-17-2024 take 3 tablets by mo uth once daily Drospirenone-Ethinyl Estradiol (Vestura (28)) 3-0.02 mg tablet Active 1 {tbl} PO daily January 17, 2024 12:11pm Start: 01-14-2024 End: 01-17-2024 take 3 tablets by mouth once daily Drospirenone-Ethinyl Estradiol (Vestura (28)) 3-0.02 mg tablet Discontinued 1 {tbl} PO daily January 14, 2024 2:00pm January 17, 2024 12:14pm Start: 01-14-2024 End: 01-17-2024 take 3 tablets by mouth once daily Drospirenone-Ethinyl Estradiol (Vestura (28)) 3-0.02 mg tablet Discontinued 1 {tbl} PO daily January 14, 2024 2:00pm January 17, 2024 12:14pm Start: 10-06-2023 End: 01-14-2024 take 3 tablets by mouth once daily Drospirenone-Ethinyl Estradiol (Vestura (28)) 3-0.02 mg tablet Discontinued 1 {tbl} PO daily October 06, 2023 12:00am January 14, 2024 2:00pm ethinyl estradiol/drospirenone (VESTURA, 28, ORAL) (4 sources) ethinyl estradiol/drospirenone (VESTURA, 28, ORAL) Take 3 mg by mouth once daily. Active fluticasone propionate 0.05 mg/actuat metered dose nasal spray (8 sources) Corticosteroid Start : 03-28 take 50 ug nasal route once daily Fluticasone Propionate (Flonase Allergy Relief) 50 mcg/actuation spray,suspension Active 1 NMA INTRANASAL daily 16 March 28, 2024 1:00am administer into each nostril Start: 09-01-2016 FLONASE SUSP a s directed FLUTICASONE PROPIONATE SUSP [id number] Neelima Romero LPN SUMAtriptan 25 mg oral tablet (8 sources) Serotonin-1b and Serotonin-1d Receptor Agonist Start: 06-27-2024 take 1 tablet by mouth every hour as needed Sumatriptan Succinate (Imitrex) 25 mg tablet Active 0 PO .COMPLEX as needed June 27, 2024 8:36am take 1 tab at onset of headache; if no relief may repeat 1 tab after at least 2 hrs; max = 4 tabs/24 hr orally PRN; Start: 10-06-2023 End: 06-27-2024 take 1 tablet by mouth every two hours Sumatriptan Succinate (Imitrex) 25 mg tablet Discontinued 0 PO .COMPLEX 10 0 October 06, 2023 12:00am June 27, 2024 8:36am take 1 tab at onset of headache; if no relief may repeat 1 tab after at least 2 hrs; max = 4 tabs/24 hr PO Completed/Discontinued Medications Medication Drug Class(es) Dates Sig (Normalized) Sig (Original) acetaminophen 500 mg oral tablet (3 sources) Start: 05-02-2018 End: 08-09-2018 take 1 tablet by mouth every six hours as needed for pain Acetaminophen 500 MG tablet Discontinued 500 mg PO EVERY 6 HOURS NEEDED as needed for Pain May 02, 2018 1:00am August 09, 2018 7:45am amoxicillin 500 mg oral capsule (3 sources) Penicillin-class Antibacterial Start: 08-09-2018 End: 08-19-2018 take 1 capsule by mouth twice daily Amoxicillin 500 mg capsule Discontinued 500 mg PO TWICE A DAY 20 10 0 August 09, 2018 12:00am August 18, 2018 12:00am August 19, 2018 12:09am amoxicillin 875 mg / clavulanate 125 mg oral tablet (2 sources) Penicillin-class Antibacterial Start: 10-29-2023 End: 11-08-2023 Amoxicillin-Pot Clavulanate 875-125 mg tablet Discontinued 1 {tbl} PO Q12H 20 10 0 October 29, 2023 12:00am November 07, 2023 12:00am November 08, 2023 12:05am Acute sinusitis, unspecified azithromycin 250 mg oral tablet (15 sources) Macrolide Antimicrobial Start: 02-07-2023 End: 04-08-2023 Azithromycin (Zithromax Z-Kye) 250 mg tablet Discontinued 0 PO .COMPLEX 6 0 February 07, 2023 12:00am April 08, 2023 3:32pm For 250 mg dose pack: take 500 mg today (day 1), then 250 mg for 4 days (days 2-5) PO Start: 09-17-2021 End: 02-07-2023 Azithromycin 250 mg tablet D iscontinued 250 mg PO daily 6 0 September 17, 2021 12:00am February 07, 2023 12:52pm 2 tablets today, then 1 tablet daily on days 2 through 5; DO NOT FILL UNTIL 09/21/21 Start: 09-01-2016 End: 12-30-2016 ZITHROMAX Z-KYE 250 MG TABS as directed AZITHROMYCIN [id number] Delonte Christie PA-C CETIRIZINE-PSEUDOEPHEDRINE (4 sources) alpha-Adrenergic Agonist, Histamine-1 Receptor Antagonist Start: 12-30-2016 ZYRTEC-D ALLERGY & CONGESTION 5-120 MG [id number] 1 tablet every 12 hours as needed CETIRIZINE-PSEUDOEPHEDRINE [id number] Jaylan MOORE cholecalciferol 1000 unt oral tablet (10 sources) Vitamin D Start: 09-23-2017 VITAMIN D3 1000 UNIT TABS 1 tablet once daily CHOLECALCIFEROL [id number] Caren Floyd WHITLEY Start: 12-23-2016 End: 08-09-2018 take 1 tablet by mouth once daily Cholecalciferol (Vitamin D3) 1,000 UNIT tablet Discontinued 1000 U PO DAILY December 23, 2016 12:00am August 09, 2018 7:45am Start: 09-01-2016 VITAMIN D3 CAP S as directed CHOLECALCIFEROL CAPS [id number] Neelima Romero LPN Start: 09-01-2016 VITAMIN D3 CAP S as directed CHOLECALCIFEROL CAPS [id number] Neelima Romero LPN escitalopram 10 mg oral tablet (10 sources) Serotonin Reuptake Inhibitor Start: 01-17-2024 End: 02-11-2024 take 1 tablet by mouth once daily Escitalopram Oxalate 10 mg tablet Discontinued 10 mg PO DAILY January 20, 2024 12:00am February 11, 2024 4:48pm hydrocortisone 10 mg/ml / neomycin 3.5 mg/ml / polymyxin b [id number] unt/ml otic suspension (3 sources) Aminoglycoside Antibacterial, Polymyxin-class Antibacterial, Corticosteroid Start: 08-19-2021 End: 08-29-2021 Neomycin-Polymyxi n-Hc 3.5-10,000-1 mg/mL-unit/mL-% drops,suspension Discontinued 3 NMA OTIC Q4H 10 10 August 19, 2021 12:00am August 28, 2021 12:00am August 29, 2021 12:04am apply to (cotton) wick; replace wick every 24 hours Start: 08-19-2021 End: 08-29-2021 Tfsnvpil-Dtbbqkmft-Lm Discon tinued 3 DRP OTIC Q4H 10 August 19, 2021 12:00am August 29, 2021 12:04am apply to (cotton) wick; replace wick every 24 hours ibuprofen 200 mg oral capsule (3 sources) Nonsteroidal Anti-inflammatory Drug Start: 08-09-2018 End: 04-07-2020 take 1 capsule by mouth every six hours Ibuprofen 200 mg capsule Discontinued 200 mg PO EVERY 6 HOURS August 09, 2018 12:00am April 07, 2020 1:20pm Iron (6 sources) Start: 09-01-2016 CHILDRENS MULTIVITAMIN/IRON CHEW as directed PED MV W/ IRON CHEW [id number] Neelima Romero LPN MULTIPLE VITAMIN (1 source) Start: 09-23-2017 MULTI VITAMIN DAILY TABS 1 tablet once daily MULTIPLE VITAMIN [id number] Caren Floyd RN Multivitamin With Folic Acid (1 source) Start: 12-23-2016 End: 08-09-2018 take 1 tablet by mouth once daily Multivitamin With Folic Acid Discontinued 1 TABLET PO DAILY December 23, 2016 12:00am August 09, 2018 7:45am Multivitamin With Folic Acid 1 TABLET tablet (2 sources) Start: 12-23-2016 End: 08-09-2018 take 1 tablet by mouth once daily Multivitamin With Folic Acid 1 TABLET tablet Discontinued 1 {tbl} PO DAILY December 23, 2016 12:00am August 09, 2018 7:45am nitrofurantoin, macrocrystals 25 mg / nitrofurantoin, monohydrate 75 mg oral capsule (7 sources) Nitrofuran Antibacterial Start: 10-26-2023 End: 10-31-2023 take 1 capsule by mouth every twelve hours at mealtime Nitrofurantoin Monohyd/M-Cryst (Macrobid) 100 mg capsule Discontinued 100 mg PO Q12H 10 5 0 October 26, 2023 12:00am October 30, 2023 12:00am October 31, 2023 12:05am must administer with a meal/food Start: 09-07-2023 End: 09-12-2023 take 1 capsule by mouth every twelve hours at mealtime Nitrofurantoin Monohyd/M-Cryst (Macrobid) 100 mg capsule Discontinued 100 mg PO Q12H 10 5 0 September 07, 2023 12:00am September 11, 2023 12:00am September 12, 2023 12:06am must administer with a meal/food Start: 06-07-2020 End: 06-14-2020 take 1 capsule by mouth every twelve hours at mealtime Nitrofurantoin Monohyd/M-Cryst 100 mg capsule Discontinued 1 NMA PO Q12H 14 7 0 June 07, 2020 1:00am June 13, 2020 1:00am June 14, 2020 1:03am administer with a meal/food; swallow whole; do not open, crush, dissolve , or chew oseltamivir 75 mg oral capsule (2 sources) Neuraminidase Inhibitor Start: 05-04-2024 End: 05-09-2024 take 1 capsule by mouth twice daily Oseltamivir (Tamiflu) 75 mg capsule Discontinued 75 mg PO TWICE A DAY 10 5 0 May 04, 2024 1:00am May 08, 2024 1:00am May 09, 2024 1:08am predniSONE 20 mg oral tablet (2 sources) Start: 07-20-2024 End: 12-19-2024 take 1 tablet by mouth once daily Prednisone 20 mg tablet Discontinued 20 mg PO daily 5 0 July 20, 2024 12:00am December 19, 2024 2:33pm Problems Active Problems Problem Classification Problem Date Documented Date Episodic/Chronic Abdominal pain (9 sources) Right lower quadrant pain; Translations: [Right flank pain] Onset: 11-20-2020 Episodic Comment on above: and dyspareunia- pel yamilex US ordered. history of ovarian cysts Administrative/social admission (3 sources) Special examination status; Translations: [Encounter for examination for participation in sport] 10-05-2023 Episodic Anxiety disorders (1 source) Anxiety disorder, unspecified; Translations: [Anxiety disorder, unspecified] Onset: 02-11-2024 Chronic Cardiac dysrhythmias (2 sources) Postural orthostatic tachycardia syndrome ; Translations: [POTS (postural orthostatic tachycardia syndrome)] 02-28-2024 Chronic Headache; including migraine (1 source) Migraine with aura, not intractable, without status migrainosus; Translations: [Migraine with aura, not intractable, without status migrainosus] Onset: 02-15-2024 Chronic Intracranial injury (3 sources) Concussion with no loss of consciousness; Translations: [Concussion without loss of consciousness, initial encounter] 10-05-2023 Episodic Malaise and fatigue (1 source) Malaise and fatigue; Translations: [Other malaise] 02-28-2024 Episodic Menstrual disorders (2 sources) Secondary amenorrhea; Translations: [Secondary amenorrhea] 12-19-2024 Chronic Comment on above: day 2 of placebo pil ls- elizabeth fsh estradiol, amh, and tsh. may be due to prolonged OCP use. 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, left leg] Onset: 09-24-2017 09-24-2017 Chronic Other ear and sense organ disorders (3 sources) Acute otitis externa; Translations: [Diffuse otitis externa, right ear] 10-05-2023 Episodic Other ear and sense organ disorders (1 source) Diffuse otitis externa, right ear; Translations: [Infective otitis externa, unspecified] Episodic Other injuries and conditions due to external causes (3 sources) Bone injury; Translations: [Other injury of unspecified body region, initial encounter] 06-27-2024 Episodic Other injuries and conditions due to external causes (2 sources) Injury of left ankle; Translations: [Unspecified injury of left ankle, initial encounter] 06-26-2024 Episodic Other non-traumatic joint disorders (1 source) Pain in left knee; Translations: [Pain in left knee] Onset: 09-24-2017 09-24-2017 Episodic Other upper respiratory infections (20 sources) Upper respiratory infection; Translations: [Pharyngitis] Onset: 12-30-2016 12-30-2016 Episodic Residual codes; unclassified (3 sources) Viral syndrome; Translations: [Other general symptoms and signs] 10-05-2023 Episodic Sprains and strains (5 sources) Sprain of left ankle; Translations: [Sprain of unspecified ligament of left ankle, initial encounter] Onset: 07-17-2024 06-27-2024 Episodic Syncope (1 source) Loss of consciousness; Translations: [Syncope and collapse] 02-28-2024 Episodic Urinary tract infections (3 sources) Urinary tract infectious disease; Translations: [Urinary tract infection, site not specified] 10-05-2023 Episodic Past or Other Problems Problem Classification Problem Date Documented Da te Episodic/Chronic Cardiac dysrhythmias (2 sources) Tachycardia, unspecified; Translations: [Tachycardia, unspecified] Onset: 03-07-2024 Episodic Genitourinary symptoms and ill-defined conditions (1 source) Proteinuria, unspecified; Translations: [Proteinuria, unspecified] Onset: 01-26-2024 Episodic Immunizations and screening for infectious disease (1 source) Encounter for immunization; Translations: [Encounter for immunization] Onset: 01-26-2024 Episodic Other circulatory disease (1 source) Postural orthostatic tachycardia syndrome ; Translations: [Postural orthostatic tachycardia syndrome [POTS]] Onset: 02-22-2024 Episodic Other injuries and conditions due to external causes (1 source) Other injury of unspecified body region, initial encounter; Translations: [Other injury of unspecified body region, initial encounter] Onset: 07-17-2024 Episodic Other injuries and conditions due to external causes (1 source) Unspecified injury of left ankle, initial encounter; Translations: [Unspecified injury of left ankle, initial encounter] Onset: 06-27-2024 Episodic Other screening for suspected conditions (not mental disorders or infectious disease) (1 source) Encounter for screening for malignant neoplasm of cervix; Translations: [Encounter for screening for malignant neoplasm of cervix] Onset: 02-08-2024 Episodic Other upper respiratory disease (6 sources) Pain in throat; Translations: [Acute pharyngitis, unspecified] Onset: 09-01-2016 09-01-2016 Episodic Otitis media and related conditions (6 sources) Acute otitis media; Translations: [Otitis media, unspecified, right ear] Onset: 09-01-2016 09-01-2016 Episodic Residual codes; unclassified (1 source) Other general symptoms and signs; Translations: [Other general symptoms and signs] Onset: 05-04-2024 Episodic Unclassified (1 source) Problem Results Test Name Value Interpretation Reference Range Facility [facility] 10-09-2024 [facility] Telephone (NEURST) MAYKEL VILLAR ([id number]) 4 F Date Time Provider Department 10/09/24 CHAYITO PAIGE During your visit today, we recorded the following information about you: Levy Stuart 10/09/2024 1:44 PM Signed Patient's insurance calling in to request alternative diagnosis for Heart Monitor. Please advise. Thank you PH. [phone] F. [phone] Carlos Mercado RN 10/09/2024 2:01 PM Signed [employer] faxed @ [phone] with OV note 02/28/24 per request noted under cardiac message from 10/04/24 with updated provider contact additionally. Updates sent to covering providers to review if changes are needed with Dx noted. Carlos Mercado RN, BSN Carlos Mercado RN 10/10/2024 10:15 AM Signed [employer] called at PH. [phone]. OV notes received and claim was resubmitted yesterday. Nothing further needed. Ref#[id number] for the call. Covering provider updated. Carlos Mercado RN, BSN Allergies As of Date: 10/09/2024 (Not on File) Date Reviewed: 02/28/2024 Reviewed by: Ольга Wesley MA - Fully Assessed Reason for Visit: Orders [681] Cmt: See note Contract Manager - Other [[id number]] Insurance Authorization [[id number]] Prescriptions as of 10/19/2024 - LEXAPRO 10 mg tablet Take 10 mg by mouth once daily. - ethinyl estradiol/drospirenon e (VESTURA, 28, ORAL) Take 3 mg by mouth once daily. - SUMAtriptan (IMITREX) 25 mg tablet Take 25 mg by mouth as needed for migraine headache (see administration instructions). May repeat dose after 2 hours if needed. Maximum daily dose is 200 mg per day. Problem List As Of Date: 10/09/2024 (None) Encounter Status:Closed by LEVY STUART on 10/19/24 [facility] Valentine 10-06-2024 CNPN Telephone (FAMPST) MAYKEL VILLAR ([id number]) 4 F Date Time Provider Department 10/06/24 CHAYITO PAIGE FAMPST During your visit today, we recorded the following information about you: Pura Will MA 10/06/2024 1:03 PM Signed Patient records received via electronic fax. Uploaded to [employer] via [employer]. Please review in scanned documents tab of chart review. Pura Will MA Allergies As of Date: 10/06/2024 (Not on File) Date Reviewed: 02/28/2024 Reviewed by: Ольга Wesley MA - Fully Assessed Reason for Visit: Heart Problem [54] Prescriptions as of 10/06/2024 - LEXAPRO 10 mg tablet Take 10 mg by mouth once daily. - ethinyl estradiol/drospirenon e (VESTURA, 28, ORAL) Take 3 mg by mouth once daily. - SUMAtriptan (IMITREX) 25 mg tablet Take 25 mg by mouth as needed for migraine headache (see administration instructions). May repeat dose after 2 hours if needed. Maximum daily dose is 200 mg per day. Problem List As Of Date: 10/06/2024 (None) Encounter Status:Closed by PURA WILL on 10/06/24 [facility] Influenza virus A and B and SARS-CoV-2 (COVID-19) and Respiratory syncytial virus RNAOrdered By: Gael Flores on 07-20-2024 SARS-CoV-2 (COVID-19) RNA JOSE A+probe Ql (Unsp spec) [facility] Internal Medicine Office Vis david 07-20-2024 Internal Medicine Office Visit [facility] [address] [place] [address] [address] [place] [address] OFFICE VISIT Date of Service: 07/20/24 MR#: [id number] Acct: [id number] Name: MAYKEL VILLAR Rep #: [id number] : 2000 Provider: Dr. Gael whelan MD Age/Sex: 24/F Location: [facility] [place] [place] Status: Signed Intake Vital Signs 07/17/24 08:55 07/20/24 08:21 Height 5 ft 11 in 5 ft 11 in BP 138/84 H Blood Pressure Location Lt brachial Position Sitting Respiration 18 Pulse 109 H Pulse Source Monitor Temp 97.0 F L Temp Source Temporal Pulse Oximetry (%) 98 Oxygen Delivery Method room air Intake Visit Reasons: SORE TONSILS/CHEST CONGESTION Chief Complaint: Sore TONSILS/CHEST CONGESTION Is patient in pain?: Yes (4 WOLFE ) Allergies No Known Allergies Allergy (Verified 07/20/24 08:25) Medications ???Medication ???Instructions ???Recorded ???Confirmed ???Type drospirenone 3 mg-ethinyl 1 tab PO QDAY #28 tabs 01/17/24 Rx estradiol 0.02 mg tablet (Vestura (28)) escitalopram oxalate 10 mg tablet 10 mg PO DAILY #90 tabs 02/11/24 07/20/24 Rx compression socks, medium #2 ea 02/22/24 07/17/24 Rx fluticasone propionate 50 1 spray intranasal QDAY #16 grams 03/28/24 07/20/24 Rx mcg/actuation nasal spray,suspension (Flonase Allergy Relief) sumatriptan succinate 25 mg tablet See Rx Instructions PO .COMPLEX PRN 06/27/24 07/20/24 History (Imitrex) Nurse's Note: pt states that her throat/ tonsils no longer hurt, that it was just the first day when she became ill about 6-[facility] History Pneumonia Head ache Gastrointestinal problem Bone fracture Urinary tract infection Concussion without loss of consciousness, initial encounter Asthma Surgical History History of reduction of closed dislocation H/O rhinoplasty Family History Father Type 1 diabetes Hypertension Mother Hypertension Grandfather Cancer prostate Grandmother Cancer uterine Social History adopted: No household members: family housing: house number of children: 0 current occupational status: employed and student current occupation: [employer], attending [employer] sexually active: Yes Smoking Status: Never smoker Electronic Cigarette Use: not used alcohol intake: never substance use type: does not use what type of physical activity do you participate in: walking frequency: 3-4 times per week seatbelt use: always do you feel safe at home: Yes additional social history: Boyfriend - Ab HPI HPI Chief Complaint: Sore TONSILS/CHEST CONGESTION Details: MAYKEL VILLAR, is a 24 F who presents to the office today for an acute visit. She has concerns about cough and congestion. She reports that her symptoms started on Wednesday morning with some post nasal drip, sore throat and headache. She reports her symptoms have progressively worsened since then. She reports she is having sinus pressure and ear pressure, congestion and a bad cough. She reports she is bringing up clear sputum. She has been taking aleve cold medication and nyquil severe at night. She states the nyquil does help quite a bit, but the aleve doesn't help for very long. She denies any sick contacts. She did have the flu back in April and recovered from that. She reports she feels like she has been sick once a month and wants to know what she can do for that. She thinks she had a fever at the beginning of her illness, but never actually checked. Symptoms include: Fever (=100.4F) or Chills: No Cough: Yes Shortness of breath or difficulty breathing: Yes Fatigue: Yes Muscle aches: Yes Headache: Yes New loss of smell or taste: No Sore throat: Yes, resolved Nasal congestion: Yes Rhinorrhea: Yes Nausea: No? Vomiting: No Diarrhea: No OTC meds/remedies that the patient has tried: Aleve cold and flu, nyquil severe High risk category assessment: None Exposures: Sick contacts: None Family or close contacts with confirmed/suspected COVID in the last 14 days: No ROS Const Constitutional: Positive for fatigue and headache(s); No body ache, chills, excessive sweating, fever(s), frequent falls, snoring, weakness, weight change, sleep problems, abnormal sleep pattern or change in appetite Eyes Eyes: No blurry vision, change in vision, eye pain or Light sensitivity ENT ENT: Positive for ear pressure, nasal congestion, sinus pressure, nasal discharge and headache(s); No abnormal hearing, ear or mastoid pain, ear discharge, tinnitus, sinus pain, neck pain or sore throat (resolved) Resp Respiratory: Positive f (more content not included)... Normal [facility] M100.678on 07-20-2024 M100.678 Pending SARS-CoV-2 (COVID 19) Negative INFLUENZA A Negative INFLUENZA B Negative RSV PCR Negative Normal [facility] Comment on above: Performed By: #### M 100.678 #### [facility] Laboratory [address] [place], [address] Ankle min 3 Viewson 07-18-19 25 Ankle min 3 Views [facility] Imaging Services [address] [place] [address] Ankle min 3 Views MR#: [id number] Acct: [id number] Name: MAYKEL VILLAR Rep #: [id number] : 2000 F 24 From: Ryan Carroll MD PCP: Dr. Gael Flores MD Status: DEP AMB Study: Ankle min 3 Views Date of Exam: 07/17/24 Exam# [id number] Ordering Dr: Svetlana Rao PATIENT SVCS MGR-C PROCEDURE: ANKLE MIN 3 VIEWS 07/17/2024 REASON FOR EXAM: ANKLE INJURY FOLLOW UP TECHNIQUE: 3 views of the left ankle COMPARISON: 06/27/2024 FINDINGS: No fracture, dislocation or radiographic evidence of joint effusion identified. Small triangular appearing bony exuberance medial aspect of the distal tibia metadiaphysis again noted may represent exostosis. The joint spaces appear within limits. RAD/Ankle min 3 Views IMPRESSION: No fracture, dislocation or radiographic evidence of joint effusion identified. Small triangular appearing bony exuberance medial aspect of the distal tibia metadiaphysis again noted may represent exostosis. Reading Location: [id number] CC: QUOC Rao; Dr. Gael Flores MD [employer] Supervisor: Signed Normal [facility] Orthopedic Visit Reporton Orthopedic Visit Report [facility] [address] [place] [address] [address] [place] [address] OFFICE VISIT Date of Service: 07/17/24 MR#: [id number] Acct: [id number] Name: MAYKEL VILLAR Rep #: [id number] : 2000 Provider: QUOC vazquez Age/Sex: 24/F Location: [facility].LISA Status: Signed Intake Vital Signs 06/27/24 08:35 07/17/24 08:55 Height 5 ft 11 in 5 ft 11 in Weight: 203 lb 2 oz 200 lb BMI 28.3 27.8 Intake Visit Reasons: LEFT ANKLE Chief Complaint: Left Ankle Pain follow up Accompanied by: Self Is patient in pain?: No Allergies No Known Allergies Allergy (Verified 07/17/24 08:59) Medications ???Medication ???Instructions ???Recorded ???Confirmed ???Type drospirenone 3 mg-ethinyl 1 tab PO QDAY #28 tabs 01/17/24 Rx estradiol 0.02 mg tablet (Vestura (28)) escitalopram oxalate 10 mg tablet 10 mg PO DAILY #90 tabs 02/11/24 07/17/24 Rx compression socks, medium #2 ea 02/22/24 07/17/24 Rx fluticasone propionate 50 1 spray intranasal QDAY #16 grams 03/28/24 07/17/24 Rx mcg/actuation nasal spray,suspension (Flonase Allergy Relief) sumatriptan succinate 25 mg tablet See Rx Instructions PO .COMPLEX PRN 06/27/24 07/17/24 History (Imitrex) Have you fallen in the past year?: No PFSH Medical History Pneumonia Head ache Gastrointestinal problem Bone fracture Urinary tract infection Concussion without loss of consciousness, initial encounter Asthma Surgical History History of reduction of closed dislocation H/O rhinoplasty Family History Father Type 1 diabetes Hypertension Mother Hypertension Grandfather Cancer prostate Grandmother Cancer uterine Social History adopted: No household members: family housing: house number of children: 0 current occupational status: employed and student current occupation: [employer], attending [employer] sexually active: Yes Smoking Status: Never smoker Electronic Cigarette Use: not used alcohol intake: never substance use type: does not use what type of physical activity do you participate in: walking frequency: 3-4 times per week seatbelt use: always do you feel safe at home: Yes additional social history: Boyfriend - Ab HPI LEFT ANKLE Details: This documentation accurately reflects the service provided and the decisions made by me, Svetlana Rao, PATIENT SVCS MGR-C 07/17/24 0868. Part of today???s visit was documented by Arturo Valenzuela MA, acting as scribe. MAYKEL VILLAR is a 24 year old F here today for a left ankle pain follow up. She isn't having any pain today. Patient states that the boot is very comfortable for her ankle. Agree with above. Maykel is a pleasant 24-year-old female here for 2-week follow-up of left ankle sprain, overall improvement is rated at 80%. Has been compliant wearing the boot and removing for sleep. Patient states she does notice increased achiness and swelling after working for long days up to 14 hours. Ibuprofen, rest, elevation and ice help with symptom control. No new injuries. ROS Const All systems reviewed are unremarkable except as noted in H and other (A O x 3, no apparent distress. No recent illness.) ENT Denies dizziness Card Denies chest pain, Denies dyspnea, Denies edema and Reports other (No palpitations) Resp Denies cough, Denies dyspnea and Reports other (No recent URI) GI Reports system reviewed and no additional complaints, except as documented, Denies nausea and Denies vomiting Musc Reports as per HPI, Reports arthralgias and Reports joint swelling Neuro No dizziness Psych Reports system reviewed and no additional complaints, except as documented Cole/Lymph Denies easy bleeding and Denies easy bruising Ortho Exam Left Foot/Ankle Date of injury: 06/24/24 Contralateral Normal: Yes Compartments: soft Pulses: Dorsalis Pedis: 2 and Posterior Tibial: 2 ANKLE: Ecchymosis and swelling has resolved to the anterior to lateral ankle region. No tenderness remains over the extensor hallucis longus with palpation; mild symptom aggravation with flexion. No pain remains over the navicular bone with palpation or range of motion; no pain over medial or lateral malleolus, no ankle instability. Negative findings on following testing: Anterior and posterior drawer, talar tilt test, Rosales test and squeeze test.. Achilles is soft, nontender. Ambulatory with minimal limp Full range of distal joints with no symptom aggravation Distal motor or sensory intact with brisk cap refill at 2 seconds Suppl (more content not included)... Normal [facility] Ankle min 3 Viewson 06-28-19 Ankle min 3 Views [facility] Imaging Services [address] [place] [address] Ankle min 3 Views MR#: [id number] Acct: [id number] Name: MAYKEL VILLAR Rep #: [id number] : 2000 F 24 From: Delonte Pepe MD PCP: Dr. Gael Flores MD Status: DEP AMB Study: Ankle min 3 Views Date of Exam: 06/27/24 Exam# [id number] Ordering Dr: Svetlana Rao EXAM: XR Left Ankle Complete, 3 or More Views CLINICAL INDICATION: L ANKLE INJURY, RECENT FALL TECHNIQUE: Frontal, lateral and oblique views of the left ankle. COMPARISON: No relevant prior studies available. FINDINGS: BONES/JOINTS: See below. SOFT TISSUES: Soft tissue swelling without acute fracture. RAD/Ankle min 3 Views IMPRESSION: 1. Soft tissue swelling without acute fracture. 2. If symptoms persist, further evaluation with CT is recommended. Reading Location: [facility] CC: PATIENT SVCS MGRGwendolyn Rao; Dr. Gael Flores MD [employer] Supervisor: Signed Normal [facility] Orthopedic Visit Reporton Orthopedic Visit Report [facility] [address] [place] [address] OFFICE VISIT Date of Service: 06/27/24 MR#: [id number] Acct: [id number] Name: MAYKEL VILLAR Rep #: [id number] : 2000 Provider: QUOC vazquez Age/Sex: 24/F Location: [facility].LISA Status: Signed Intake Vital Signs 05/04/24 08:30 06/27/24 08:35 Height 5 ft 11 in 5 ft 11 in Weight: 203 lb 2 oz BMI 28.3 Intake Visit Reasons: LEFT ANKLE Chief Complaint: Left Ankle Pain Accompanied by: Self Is patient in pain?: Yes Pain scale (1-10): 4 Allergies No Known Allergies Allergy (Verified 06/27/24 08:35) Medications ???Medication ???Instructions ???Recorded ???Confirmed ???Type drospirenone 3 mg-ethinyl 1 tab PO QDAY #28 tabs 01/17/24 Rx estradiol 0.02 mg tablet (Vestura (28)) escitalopram oxalate 10 mg tablet 10 mg PO DAILY #90 tabs 02/11/24 06/27/24 Rx compression socks, medium #2 ea 02/22/24 05/04/24 Rx fluticasone propionate 50 1 spray intranasal QDAY #16 grams 03/28/24 06/27/24 Rx mcg/actuation nasal spray,suspension (Flonase Allergy Relief) sumatriptan succinate 25 mg tablet See Rx Instructions PO .COMPLEX PRN 06/27/24 History (Imitrex) PFSH Medical History Pneumonia Head ache Gastrointestinal problem Bone fracture Urinary tract infection Concussion without loss of consciousness, initial encounter Asthma Surgical History History of reduction of closed dislocation H/O rhinoplasty Family History Father Type 1 diabetes Hypertension Mother Hypertension Grandfather Cancer prostate Grandmother Cancer uterine Social History adopted: No household members: family housing: house number of children: 0 current occupational status: employed and student current occupation: [employer], attending [employer] sexually active: Yes Smoking Status: Never smoker Electronic Cigarette Use: not used alcohol intake: never substance use type: does not use what type of physical activity do you participate in: walking frequency: 3-4 times per week seatbelt use: always do you feel safe at home: Yes additional social history: Boyfriend - Ab HPI LEFT ANKLE Details: This documentation accurately reflects the service provided and the decisions made by me, Svetlana Rao, QUOC 06/27/24 0832. Part of today???s visit was documented by Maia Valenzuela ATC, acting as scribe. MAYKEL VILLAR is a 24 year old F here today for left ankle/foot pain. Patient states she fell down the stairs on Wednesday06/24/2024. She states she landed with her foot and leg up underneath of her. She describes the pain over the top of the ankle and a little on the lateral aspect. She denies any numbness/tingling into the foot. She denies any previous injury to this ankle. She states she noticed some swelling in the ankle. Agree with above Maykel is a pleasant 24-year-old here for initial evaluation of left ankle foot injury from 3 days ago. Ankle is currently sore with seated position, gets to throbbing pain with increased activity and weightbearing. Patient is taking ibuprofen, ice which do help some with the symptoms. States swelling gets worse as the day continues. 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 ROS Const All systems reviewed are unremarkable except as noted in H and other (A O x 3, no apparent distress. No recent illness.) ENT Denies dizziness Card Denies chest pain, Denies dyspnea, Denies edema and Reports other (No palpitations) Resp Denies cough, Denies dyspnea and Reports other (No recent URI) GI Reports system reviewed and no additional complaints, except as documented, Denies nausea and Denies vomiting Musc Reports as per HPI, Reports arthralgias and Reports joint swelling Neuro No dizziness Psych Reports system reviewed and no additional complaints, except as documented Cole/Lymph Denies easy bleeding and Denies easy bruising Ortho Exam Left Foot/Ankle Date of injury: 06/24/24 Skin: Yes Ecchymosis and Soft Tissue Swelling Contralateral Normal: Yes Exam: Yes Ecchymosis and Soft tissue swelling Compartments: soft Anterior Drawer: 0 Tests: Rosales Test: 1 and Squeeze Test: 1 Pulses: Dorsalis Pedis: 2 and Posterior Tibial: 2 ANKLE: Light ecchymosis and swelling is noted over the anterior to lateral ankle region. There is a skin abrasion noted to the left anterior lower peter with light scabbing. No redness or drainage noted. + tender over the extensor hallucis longus with palpation and flexion as (more content not included)... Normal [facility] Influenza virus A and B and SARS-CoV-2 (COVID-19) and Respiratory syncytial virus RNAOrdered By: Gale Flores on 05-04-2024 SARS-CoV-2 (COVID-19) RNA JOSE A+probe Ql (Unsp spec) Influenzae A Abnormal [facility] Internal Medicine Office Vis iton 05-04-2024 Internal Medicine Office Visit [facility] [address] [place] [address] [place] [address] OFFICE VISIT Date of Service: 05/04/24 MR#: [id number] Acct: [id number] Name: MAYKEL VILLAR Rep #: [id number] : 2000 Provider: Dr. Gael whelan MD Age/Sex: 24/F Location: [facility].BIM Status: Signed Intake Vital Signs 03/28/24 14:54 05/04/24 08:30 Height 5 ft 11 in 5 ft 11 in Weight: 197 lb BMI 27.4 BP 110/80 Blood Pressure Location Lt brachial Position Sitting Respiration 18 Pulse 112 H Pulse Source Monitor Temp 97.0 F L Temp Source Temporal Pulse Oximetry (%) 97 Oxygen Delivery Method room air Intake Visit Reasons: possible flu Chief Complaint: flu like sx Lead Scientist Required: No Accompanied by: Self Is patient in pain?: No Allergies No Known Allergies Allergy (Verified 05/04/24 08:26) Medications ???Medication ???Instructions ???Recorded ???Confirmed ???Type sumatriptan succinate 25 mg tablet See Rx Instructions PO .COMPLEX 10/06/23 05/04/24 Rx (Imitrex) #10 tabs drospirenone 3 mg-ethinyl 1 tab PO QDAY #28 tabs 01/17/24 05/04/24 Rx estradiol 0.02 mg tablet (Vestura (28)) escitalopram oxalate 10 mg tablet 10 mg PO DAILY #90 tabs 02/11/24 05/04/24 Rx compression socks, medium #2 ea 02/22/24 05/04/24 Rx fluticasone propionate 50 1 spray intranasal QDAY #16 grams 03/28/24 05/04/24 Rx mcg/actuation nasal spray,suspension (Flonase Allergy Relief) [facility] Medical History Pneumonia Head ache Gastrointestinal problem Bone fracture Urinary tract infection Concussion without loss of consciousness, initial encounter Asthma Surgical History History of reduction of closed dislocation H/O rhinoplasty Family History Father Type 1 diabetes Hypertension Mother Hypertension Grandfather Cancer prostate Grandmother Cancer uterine Social History adopted: No household members: family housing: house number of children: 0 current occupational status: employed and student current occupation: [employer], attending [employer] sexually active: Yes Smoking Status: Never smoker Electronic Cigarette Use: not used alcohol intake: never substance use type: does not use what type of physical activity do you participate in: walking frequency: 3-4 times per week seatbelt use: always do you feel safe at home: Yes additional social history: Boyfriend - Ab HPI HPI Chief Complaint: flu like sx Details: MAYKEL VILLAR, is a 24 F who presents to the office today for an acute visit. She has concerns about flu like symptoms. She reports she is having associated body aches, headaches. She reports she had a subjective high fever a few days ago stating she was hot and couldn't stand to have anybody touch her. Her thermometer wasn't working to check it, however. Yesterday, she was able to check it and it was 100.2. Her symptoms started on Wednesday evening. She denies any known sick contacts. She has been taking tylenol and advil cold and flu. She reports it helps a little. She denies any significant cough or sputum production. She reports she has some post nasal drip which is irritating her throat, but she doesn't feel that it is significantly sore. She denies any ear pain or drainage, nor any chest pain/congestion. She didn't do a COVID test at home. She did have a flu shot this winter. The patient was seen last month for similar symptoms. She states that did resolve, however, and this is new. Symptoms include: Fever (=100.4F) or Chills: Yes Cough: Yes Shortness of breath or difficulty breathing: Yes Fatigue: Yes Muscle aches: Yes Headache: Yes New loss of smell or taste: No Sore throat: No Nasal congestion: Yes Rhinorrhea: Yes Nausea: No? Vomiting: No Diarrhea: No OTC meds/remedies that the patient has tried: Tylenol cold and flu High risk category assessment: None Exposures: Sick contacts: Yes Family or close contacts with confirmed/suspected COVID in the last 14 days: No ROS Const Constitutional: Positive for body ache, chills, fatigue, fever(s), headache(s) and weakness; No excessive sweating, frequent falls, snoring, weight change or change in appetite Eyes Eyes: No blurry vision, change in vision, eye pain or Light sensitivity ENT ENT: Positive for nasal congestion, sinus pressure, post nasal drip, headache(s) and facial pain; No abnormal hearing, ear or mastoid pain, ear discharge, tinnitus, sinus pain or sore throat Resp Respiratory: Positive for cough and shortness of breath; No snoring or wheezing Cardio Cardiology: No chest pain at res (more content not included)... Normal [facility] M100.678on 05-04-2024 M100.678 Copy of report sent to Infection Control Printer [id number] 05/04/24 6555 JACQUELINE. Pending SARS-CoV-2 (COVID 19) Negative INFLUENZA A A Positive A INFLUENZA B Negative RSV PCR Negative INFLUENZAE A Normal [facility] Comment on above: Performed By: #### L 400.0001 #### [facility] [address] [place], [address] S. pyogenes Ag IA.rapid Ql ( Throat)on 05-04-2024 S. pyogenes Ag IA Ql (Unsp spec) Negative [facility] Internal Medicine Office Vis iton 03-27-2024 Internal Medicine Office Visit [facility] [address] [place] [address] [place] [address] OFFICE VISIT Date of Service: 03/28/24 MR#: [id number] Acct: [id number] Name: MAYKEL VILLAR Rep #: [id number] : 2000 Provider: Dr. Gael whelan MD Age/Sex: 24/F Location: [facility].BIM Status: Signed Intake Vital Signs 02/22/24 07:54 03/28/24 14:54 Height 5 ft 11 in 5 ft 11 in Weight: 199 lb BMI 27.7 BP 122/80 H Blood Pressure Location Lt brachial Position Sitting Respiration 14 Pulse 112 H Pulse Source Monitor Temp 98.2 F Temp Source Temporal Intake Visit Reasons: CONGESTION / SINUS Lead Scientist Required: No Is patient in pain?: No Allergies No Known Allergies Allergy (Verified 03/28/24 14:49) Medications ???Medication ???Instructions ???Recorded ???Confirmed ???Type sumatriptan succinate 25 mg tablet See Rx Instructions PO .COMPLEX 10/06/23 03/28/24 Rx (Imitrex) #10 tabs drospirenone 3 mg-ethinyl 1 tab PO QDAY #28 tabs 01/17/24 03/28/24 Rx estradiol 0.02 mg tablet (Vestura (28)) escitalopram oxalate 10 mg tablet 10 mg PO DAILY #90 tabs 02/11/24 03/28/24 Rx compression socks, medium #2 ea 02/22/24 03/28/24 Rx fluticasone propionate 50 1 spray intranasal QDAY #16 grams 03/28/24 03/28/24 Rx mcg/actuation nasal spray,suspension (Flonase Allergy Relief) Nurse's Note: States she has had sinus congestion for over a week and gets sinus infections frequently. States that her ears recently started hurting. Has a productive green cough, and a headache. Has been treating w/ otc cold and flu med. Did an at home covid test that was negative took the test middle of last week. Denies sob, chest congestion, sore throat, body aches, fevers chills. [facility] Medical History Pneumonia Head ache Gastrointestinal problem Bone fracture Urinary tract infection Concussion without loss of consciousness, initial encounter Asthma Surgical History History of reduction of closed dislocation H/O rhinoplasty Family History Father Type 1 diabetes Hypertension Mother Hypertension Grandfather Cancer prostate Grandmother Cancer uterine Social History adopted: No household members: family housing: house number of children: 0 current occupational status: employed and student current occupation: [employer], attending [employer] sexually active: Yes Smoking Status: Never smoker Electronic Cigarette Use: not used alcohol intake: never substance use type: does not use what type of physical activity do you participate in: walking frequency: 3-4 times per week seatbelt use: always do you feel safe at home: Yes additional social history: Boyfriend - Ab HPI HPI Details: MAYKEL VILLAR, is a 24 F who presents to the office today for an acute visit. She has concerns about cough and congestion. She reports that she started to feel sick just over a week ago with cough, headache, rhinorrhea and scratchy throat. She reports her symptoms are getting better, but she continues to have congestion and her ears are bothering her. She reports she did take a COVID test which was negative. She reports she was around multiple sick contacts. She has been taking OTC cold medication which does seem to help a little. She reports she was bringing up green sputum, but states it is more clear. Symptoms include: Fever (=100.4F) or Chills: No Cough: Yes Shortness of breath or difficulty breathing: No Fatigue: No Muscle aches: No Headache: Yes New loss of smell or taste: No Sore throat: Yes Nasal congestion: Yes Rhinorrhea: Yes Nausea: No? Vomiting: No Diarrhea: No OTC meds/remedies that the patient has tried: Tylenol cold and flu High risk category assessment: None Exposures: Sick contacts: Yes Family or close contacts with confirmed/suspected COVID in the last 14 days: No ROS Const Constitutional: Positive for headache(s); No body ache, chills, excessive sweating, fatigue, fever(s), frequent falls, snoring, weakness, sleep problems or change in appetite Eyes Eyes: No blurry vision, change in vision, eye pain or Light sensitivity ENT ENT: Positive for ear or mastoid pain, nasal congestion, sinus pressure and headache(s); No abnormal hearing, ear discharge, tinnitus, sinus pain, neck pain or sore throat Resp Respiratory: Positive for cough and change in phlegm color; No shortness of breath, snoring or wheezing Cardio Cardiology: No chest pain at rest, chest pain with exertion, excessive sweating, shortness of breath, dyspnea on exertion, (more content not included)... [facility] 03-17-2024 TERENCEN Telephone (NEMANMN) MAYKEL VILLAR ([id number]) 4 F Date Time Provider Department 03/17/24 CHAYITO PAIGE During your visit today, we recorded the following information about you: Carlos Mercado RN 03/17/2024 9:21 AM Addendum ----- Message from Chayito Paige APRN.[employer] ARCHITECT sent at 03/17/2024 9:12 AM EST ----- [...] up as recommended. Letter mailed out via [employer]. Carlos Mercado RN, BSN Allergies As of Date: 03/17/2024 (Not on File) Date Reviewed: 02/28/2024 Reviewed by: Ольга Wesley MA - Fully Assessed Reason for Visit: Contract Manager - Other [3602] Results [95] Patient Update [1234] Prescriptions as of 03/17/2024 - LEXAPRO 10 mg tablet Take 10 mg by mouth once daily. - ethinyl estradiol/drospirenon e (VESTURA, 28, ORAL) Take 3 mg by mouth once daily. - SUMAtriptan (IMITREX) 25 mg tablet Take 25 mg by mouth as needed for migraine headache (see administration instructions). May repeat dose after 2 hours if needed. Maximum daily dose is 200 mg per day. Problem List As Of Date: 03/17/2024 (None) Encounter Status:Closed by CARLOS MERCADO on 03/17/24 [facility] CNOVon 02-28-2024 CNOV Office Visit (NEURST ) MAYKEL VILLAR ([id number]) 4 F Date Time Provider Department 02/28/24 2:30 PM CHAYITO PAIGE NEUR During your visit today, we recorded the following information about you: Weight Height 87 kg 1.803 m Chayito Paige APRN.[employer] EXCHANGE ARCHITECT 02/28/2024 6:04 PM Signed [facility] for General Neurology - Headache Evaluation Name: Maykel Villar Age: [age] year old Gender: female Primary Care Provider: No primary care provider on file. Consult requested for POTS by Gael Flores. Recommendations will be communicated via shared medical record or US mail. Chief Complaint:No chief complaint on file. 02/28/2024 - General Neurology, Chayito Paige APRN.[employer] EXCHANGE ARCHITECT ASSESSMENT Ms. Maykel Villar is a 24 year old female who [...] of standing she will become very hot/diaphoretic, lightheadedness/woozi ness, with palpitations. Patient has had episodes of [...] up 1 month (virtual) HPI: Ms. Maykel Villar is a 24 year old female presenting [...] completed, CELESTINO (+) Reflex (-). No records. Lightheaded/dizziness . Triggers: Positional changes, Heat, Long periods of standing Starts with heat/diaphoresis, lightheadedness/woozy , palpitations (fast and hard) Notes HR up [...] and RUQ pain that is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 Dumbwaiter Operator (ASCP) Performed By: #### L 700.6800 #### [facility] [address] [place], [place], [id number] 12 Lead EKGon 01-20-2024 12 Lead EKG [facility] Cardiovascular Services [address] [place] [address] 12 Lead EKG 01/20/24 1923 MR#: [id number] Acct: [id number] Name: MAYKEL VILLAR Rep #: [id number] : 2000 24 From: Hemanth Moore MD Attending Dr: Status: DEP ER Ordering Dr: Francisco Lugo DO Date: 01/20/24 Location: ED Sex: F C Admitted: Test Reason : DYSRHYTHMIA Blood Pressure : / mmHG Vent. Rate : 101 BPM Atrial Rate : 101 BPM P-R Int : 138 ms QRS Dur : 088 ms QT Int : 340 ms P-R-T Axes : 067 082 057 degrees QTc Int : 440 ms Sinus tachycardia Otherwise normal ECG Confirmed by HEMANTH MOORE MD ([id number]), deputy editor in chief OSMAR KING ([id number]) on 01/21/2024 2:05:38 PM Referred By: Francisco Lugo Confirmed By:HEMANTH MOORE MD 01/21/24 1405 Date Hemanth Moore MD CC: Dr. Gael Flores MD; Dr. Francisco Lugo DO Signed Normal [facility] Basic Metabolic Profile (BMP )on 01-20-2024 BUN/CRE 16.7 RATIO Normal -20 [facility] Comment on above: Order Comment: 'TROP ' Serial specimen #1, #2 or #3: 1 Performed By: #### L 501.4020, L100.0100, L500.2500, L501.9520 #### [facility] Laboratory [address] [place], [address] CA,Total 9.5 mg/dL Normal 8.5-10.1 [facility] Comment on above: Order Comment: 'TROP ' Serial specimen #1, #2 or #3: 1 Performed By: #### L 501.4020, L100.0100, L500.2500, L501.9520 #### [facility] [address] [place], [address] Chloride [Moles/Vol] 107 mmol/L Normal 98-107 [facility] Comment on above: Order Comment: 'TROP ' Serial specimen #1, #2 or #3: 1 Performed By: #### L 501.4020, L100.0100, L500.2500, L501.9520 #### [facility] [address] [place], [address] CO2 [Moles/Vol] 27.0 mmol/L Normal 21.0-32.0 [facility] Comment on above: Order Comment: 'TROP ' Serial specimen #1, #2 or #3: 1 Performed By: #### L 501.4020, L100.0100, L500.2500, L501.9520 #### [facility] [address] [place], [address] Creatinine [Mass/Vol] 1.02 mg/dL Normal 0.55-1.02 [facility] Comment on above: Order Comment: 'TROP ' Serial specimen #1, #2 or #3: 1 Result Comment: The validity of the calculated GFR GFRAA in patients over 70 years has not been determined. Clinical correlation is essential. Performed By: #### L 501.4020, L100.0100, L500.2500, L501.9520 #### [facility] [address] [place], [address] ECRCL 96.69 ml/min Normal [facility] Comment on above: Order Comment: 'TROP ' Serial specimen #1, #2 or #3: 1 Performed By: #### L 501.4020, L100.0100, L500.2500, L501.9520 #### [facility] [address] [place], [address] EST GFR - AA 87 mL/min Normal >60 [facility] Comment on above: Order Comment: 'TROP ' Serial specimen #1, #2 or #3: 1 Result Comment: Afri can [place] GFR Calc Performed By: #### L 501.4020, L100.0100, L500.2500, L501.9520 #### [facility] [address] [place], [address] GAP 5 Normal 5-15 [facility] Comment on above: Order Comment: 'TROP ' Serial specimen #1, #2 or #3: 1 Performed By: #### L 501.4020, L100.0100, L500.2500, L501.9520 #### [facility] [address] [place], [address] GFR/1.73 sq M.predicted among non-blacks MDRD (S/P/Bld) [Vol rate/Area] 72 mL/min/{1.73_m2} Normal >60 [facility] Comment on above: Order Comment: 'TROP ' Serial specimen #1, #2 or #3: 1 Result Comment: Non- GFR Calc Performed By: #### L 501.4020, L100.0100, L500.2500, L501.9520 #### [facility] [address] [place], [address] Glucose [Mass/Vol] 121 mg/dL High 74-106 [facility] Comment on above: Order Comment: 'TROP ' Serial specimen #1, #2 or #3: 1 Result Comment: Fast ing Glucose result from 100 to 125 mg/dL suggests IMPAIRED HOMEOSTASIS per A.D.A. criteria. Performed By: #### L 501.4020, L100.0100, L500.2500, L501.9520 #### [facility] [address] [place], [address] Potassium [Moles/Vol] 3.5 mmol/L Normal 3.5-5.1 [facility] Comment on above: Order Comment: 'TROP ' Serial specimen #1, #2 or #3: 1 Performed By: #### L 501.4020, L100.0100, L500.2500, L501.9520 #### [facility] [address] [place], [address] Sodium [Moles/Vol] 139 mmol/L Normal 136-145 [facility] Comment on above: Order Comment: 'TROP ' Serial specimen #1, #2 or #3: 1 Performed By: #### L 501.4020, L100.0100, L500.2500, L501.9520 #### [facility] [address] [place], [address] Urea nitrogen [Mass/Vol] 17 mg/dL Normal 7-18 [facility] Comment on above: Order Comment: 'TROP ' Serial specimen #1, #2 or #3: 1 Performed By: #### L 501.4020, L100.0100, L500.2500, L501.9520 #### [facility] [address] [place], [address] CBC W/Diff, Automatedon 10-0 3-4 Absolute Lymph 1.29 X10 3/uL Normal 0.83-4.51 [facility] Comment on above: Performed By: #### L 501.4020, L100.0100, L500.2500, L501.9520 #### [facility] [address] [place], [address] Absolute Neut 3.8 X10 3/uL Normal 2.0-7.7 [facility] Comment on above: Performed By: #### L 501.4020, L100.0100, L500.2500, L501.9520 #### [facility] [address] [place], [address] Basophils/100 WBC (Bld) 0.9 % Normal 0-1 [facility] Comment on above: Performed By: #### L 501.4020, L100.0100, L500.2500, L501.9520 #### [facility] [address] [place], [address] Eosinophils/100 WBC (Bld) 0.2 % Normal 0-5 [facility] Comment on above: Performed By: #### L 501.4020, L100.0100, L500.2500, L501.9520 #### [facility] [address] [place], [address] Erythrocyte distribution width (RBC) [Ratio] 11.9 % Normal 11.6-14.6 [facility] Comment on above: Performed By: #### L 501.4020, L100.0100, L500.2500, L501.9520 #### [facility] [address] [place], [address] Hematocrit (Bld) [Volume fraction] 43.3 % Normal 37-47 [facility] Comment on above: Performed By: #### L 501.4020, L100.0100, L500.2500, L501.9520 #### [facility] [address] [place], [address] Hemoglobin (Bld) [Mass/Vol] 14.8 g/dL Normal 12.0-15.0 [facility] Comment on above: Performed By: #### L 501.4020, L100.0100, L500.2500, L501.9520 #### [facility] [address] [place], [address] IG% 0.200 Normal 0.0-0.9 [facility] Comment on above: Result Comment: IG% - Immature Granulocytes (promyelocytes, myelocytes and metamyelocytes) > 1% indicates that a LEFT SHIFT is Present. Performed By: #### L 501.4020, L100.0100, L500.2500, L501.9520 #### [facility] [address] [place], [address] Lymphocytes/100 WBC (Bld) 23.4 % Normal 19-41 [facility] Comment on above: Performed By: #### L 501.4020, L100.0100, L500.2500, L501.9520 #### [facility] [address] [place], [address] MCH (RBC) [Entitic mass] 29.3 pg Normal 27.0-32.0 [facility] Comment on above: Performed By: #### L 501.4020, L100.0100, L500.2500, L501.9520 #### [facility] [address] [place], [address] MCHC (RBC) [Mass/Vol] 34.2 g/dL Normal 32-36 [facility] Comment on above: Performed By: #### L 501.4020, L100.0100, L500.2500, L501.9520 #### [facility] [address] [place], [address] MCV (RBC) [Entitic vol] 85.7 fL Normal 81-99 [facility] Comment on above: Performed By: #### L 501.4020, L100.0100, L500.2500, L501.9520 #### [facility] [address] [place], [address] Monocytes/100 WBC (Bld) 7.2 % Normal 0-10 [facility] Comment on above: Performed By: #### L 501.4020, L100.0100, L500.2500, L501.9520 #### [facility] Laboratory [address] [place], [address] Neutrophils/100 WBC (Bld) 68.1 % Normal 47-70 [facility] Comment on above: Performed By: #### L 501.4020, L100.0100, L500.2500, L501.9520 #### [facility] [address] [place], [address] Nucleated RBC (Bld) [#/Vol] 0 10*3/uL Normal 0-5 [facility] Comment on above: Performed By: #### L 501.4020, L100.0100, L500.2500, L501.9520 #### [facility] Laboratory [address] [place], [address] Platelet mean volume (Bld) [Entitic vol] 10.1 fL Normal 6.2-12.0 [facility] Comment on above: Performed By: #### L 501.4020, L100.0100, L500.2500, L501.9520 #### [facility] Laboratory [address] [place], [address] Platelets (Bld) [#/Vol] 259 10*3/uL Normal 150-450 [facility] Comment on above: Performed By: #### L 501.4020, L100.0100, L500.2500, L501.9520 #### [facility] [address] [place], [address] RBC (Bld) [#/Vol] 5.05 10*6/uL Normal 4.2-5.4 [facility] Comment on above: Performed By: #### L 501.4020, L100.0100, L500.2500, L501.9520 #### [facility] [address] [place], [address] RDW SD 37.2 fl Normal 35.1-43.9 [facility] Comment on above: Performed By: #### L 501.4020, L100.0100, L500.2500, L501.9520 #### [facility] [address] [place], [address] WBC (Bld) [#/Vol] 5.5 10*3/uL Normal 4.4-11.0 [facility] Comment on above: Performed By: #### L 501.4020, L100.0100, L500.2500, L501.9520 #### [facility] Laboratory [address] [place], [address] Chest 1 View (Portable)on Chest 1 View (Portable) [facility] Imaging Services [address] [place] [address] Chest 1 View (Portable) MR#: [id number] Acct: [id number] Name: MAYKEL VILLAR Rep #: [id number] : 2000 F 24 From: Ramiro hassan MD PCP: Dr. Gael Flores MD Status: [facility] ER Study: Chest 1 View (Portable) Date of Exam: 01/20/24 Exam# [id number] Ordering Dr: Francisco Lugo DO [id number] INDICATION: chest pain EXAMINATION/TECHNIQUE : X-RAY - XR Chest 1 View COMPARISON: None. FINDINGS: The lungs are clear. The cardiomediastinal silhouette is unremarkable. No pleural effusion or pneumothorax. No acute osseous abnormalities. RAD/Chest 1 View (Portable) IMPRESSION: No acute radiographic abnormalities. Electronically Signed: Ramiro Parrish MD at 20:43 EDT , CC: Dr. Gael Flores MD; Dr. Francisco Lugo DO [place] [employer] Supervisor: Signed Normal [facility] Emergency Department Summary on 01-20-2024 Emergency Department Summary [facility] Medical Records Department [address] [place] [address] Emergency Department Summary 01/20/24 MR#: [id number] Acct: [id number] Name: MAYKEL VILLAR Rep #: [id number] : 2000 24 From: Francisco Lugo DO PCP: Dr. Gael Flores MD Status:[place] ER Location: ED HPI History of Present Illness Chief Complaint: Anxiety Narrative Narrative: Patient is a 24-year-old female with no known significant past medical history who presented to the emergency department the chief complaint of chest pain. Patient states that earlier this evening after coming home from school she developed left-sided chest pain and became very anxious and had a panic attack thought that she may be having a heart attack. Patient states that she is not a think this had before. Patient denies any recent travel history. Patient notes that her pain is improved. Patient states that she was sick about a week ago. [facility] Medical History Pneumonia Head ache Gastrointestinal problem Bone fracture Urinary tract infection Concussion without loss of consciousness, initial encounter Asthma Home Medications ???Medication ???Instructions ???Recorded ???Last Taken ???Type sumatriptan succinate 25 mg tablet See Rx Instructions PO .COMPLEX 10/06/23 Unknown Rx (Imitrex) #10 tabs drospirenone 3 mg-ethinyl 1 tab PO QDAY #28 tabs 01/17/24 Unknown Rx estradiol 0.02 mg tablet (Vestura (28)) escitalopram oxalate 10 mg tablet 10 mg PO DAILY 01/20/24 Unknown History Allergy/AdvReac Type Severity Reaction Status Date / Time No Known Allergies Allergy Verified 01/20/24 18:01 Family History Father Type 1 diabetes Hypertension Mother Hypertension Grandfather Cancer prostate Grandmother Cancer uterine Surgical History History of reduction of closed dislocation H/O rhinoplasty Social History adopted: No household members: family housing: house number of children: 0 current occupational status: employed and student current occupation: [employer], attending [employer] sexually active: Yes Smoking Status: Never smoker Electronic Cigarette Use: not used alcohol intake: never substance use type: does not use what type of physical activity do you participate in: walking frequency: 3-4 times per week seatbelt use: always do you feel safe at home: Yes additional social history: Boyfriend - Ab ROS ROS ED ROS Narrative Constitutional: Complains of lightheadedness denies fevers, chills, headaches, dizziness Eyes: Denies change in vision double vision blurry vision Cardiovascular: Denies chest pain or palpitations Respiratory: Denies coughing wheezing shortness of breath Abdomen: Denies any abdominal pain nausea vomit diarrhea : Denies any urinary symptoms Neurological: Denies any numbness, weakness, tingling Musculoskeletal: Denies back pain Skin: Denies rashes or lesions EXAM Physical Exam Narrative Exam Narrative: General: Patient lying in bed rest comfortably did not appear to be in acute distress Head: Atraumatic, normocephalic Eyes: PERRL bilateral, EOMI bilateral, no conjunctival injection noted Neck: Soft, supple, trach midline Cardiovascular: Patient tachycardic with a regular rhythm Respiratory: Clear to auscultation bilaterally Abdomen: Soft, nondistended, nontender to palpation can bowel sounds present x 4 Extremities: +5/5 strength noted in the bilateral lower extremities, no pedal edema no exam Neurological: Patient following commands knew that she was at [facility] years 2023 Skin: Warm, dry, intact Const Vital Signs: 01/20/24 17:58 01/20/24 19:43 Temperature 97.3 F L Temperature Source Oral Pulse Rate 113 H Respiratory Rate 18 Blood Pressure 129/86 H Blood Pressure Mean 100 Pulse Ox 100 100 Oxygen Delivery Method Room Air Room Air MDM MDM MDM Narrative Medical decision making narrative: Patient is a 24-year-old female who presents to the emergency department with a chief complaint of left-sided chest pain, lightheadedness. Patient will have ordered performed here on the differential diagnose includes but limited to ACS, anxiety, panic attack, pneumonia, upper respiratory infection second viral etiology. Once workup is obtained reviewed she will be reevaluated. Patient's for members at bedside states that there is no early cardiac in the family. Patient's CBC reviewed and was largely unremarkable no evidence leukocytosis white blood count normal at 5.5, hemoglobin stable 14.8, platelet count normal at 259. Patient sodium normal (more content not included)... Normal [facility] L501.4020on 01-20-2024 TROPONIN-I HS < 3 Low 3.0-54.0 [facility] Comment on above: Order Comment: 'TROP ' Serial specimen #1, #2 or #3: 1 Result Comment: Plea se Note: New Test Units and Gender Specific Reference Ranges. For more information see Policy Stat Procedure [place] High Sensitivity Troponin (TNIH) and attachments. Performed By: #### L 501.4020, L100.0100, L500.2500, L501.9520 #### [facility] [address] [place], [address] ,Urineon 01-20-2024 Beta HCG ( test) Ql (U) Negative Normal [facility] Comment on above: Order Comment: CLEAN CATCH Result Comment: Very dilute urine specimens, as indicated by a low specific gravity, may not contain packaging sales representative levels of hCG. If is still suspected, a first morning urine specimen should be collected 48 hours later and tested. Performed By: #### L 400.0001, L400.7600 #### [facility] [address] [place], [address] Thyroid Stim Hormone (TSH)on 01-20-2024 TSH 1.760 uIU/mL Normal 0.358-3.740 [facility] Comment on above: Order Comment: 'TROP ' Serial specimen #1, #2 or #3: 1 Performed By: #### L 501.4020, L100.0100, L500.2500, L501.9520 #### [facility] Laboratory [address] [place], [address] Urinalysis, Completeon 01-19 EPI,SQUAMOUS 5-10 SEEN Normal 5-10 [facility] Comment on above: Order Comment: CLEAN CATCH Performed By: #### L 400.0001, L400.7600 #### [facility] Laboratory [address] [place], [address] WBC 0-5 SEEN Normal 0-5 [facility] Comment on above: Order Comment: CLEAN CATCH Performed By: #### L 400.0001, L400.7600 #### [facility] Laboratory [address] [place], [address] BACTERIA 0 SEEN Normal None Seen [facility] Comment on above: Order Comment: CLEAN CATCH Performed By: #### L 400.0001, L400.7600 #### [facility] Laboratory [address] [place], [address] Mucus Ql (Urine sed) 0 SEEN Normal [facility] Comment on above: Order Comment: CLEAN CATCH Performed By: #### L 400.0001, L400.7600 #### [facility] [address] [place], [address] RBC 0 SEEN Normal 0-5 [facility] Comment on above: Order Comment: CLEAN CATCH Performed By: #### L 400.0001, L400.7600 #### [facility] Laboratory [address] [place], [address] Lodging Facilities Manager Office Visit Reporton 01-17-2024 Lodging Facilities Manager Office Visit Report [facility] [address], [address] [place] [address] OFFICE VISIT Date of Service: 01/17/24 MR#: [id number] Acct: [id number] Name: AUREAMAYKEL PASQUALE Rep #: [id number] : 2000 Provider: Dr. 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) Lead Scientist Required: No Is patient in pain?: No Feel stressed/tense/nervou s/anxious/difficulty sleeping: only a little (nervous for today's visit) Allergies No Known Allergies Allergy (Verified 01/17/24 11:36) Medications ???Medication ???Instructions ???Recorded ???Confirmed ???Type sumatriptan succinate 25 mg tablet See Rx Instructions PO .COMPLEX 10/06/23 01/17/24 Rx (Imitrex) #10 tabs drospirenone 3 mg-ethinyl 1 tab PO QDAY #28 tabs 01/17/24 01/17/24 Rx estradiol 0.02 mg tablet (Vestura (28)) escitalopram oxalate 10 mg tablet 10 mg PO QDAY #30 tabs 01/17/24 01/17/24 Rx (Lexapro) Is last menstrual period known: Yes Last Menstrual Period: 01/11/24 Post menopausal: No Patient : No : No PFSH Medical History Pneumonia Head ache Gastrointestinal problem Bone fracture Urinary tract infection Concussion without loss of consciousness, initial encounter Asthma Surgical History History of reduction of closed dislocation H/O rhinoplasty Family History Father Type 1 diabetes Hypertension Mother Hypertension Grandfather Cancer prostate Grandmother Cancer uterine Social History (Updated 01/17/24 @ 11:39 by Danyelle Hidalgo) adopted: No household members: family housing: house number of children: 0 current occupational status: employed and student current occupation: [employer], attending [employer] sexually active: Yes Smoking Status: Never smoker Electronic Cigarette Use: not used alcohol intake: never substance use type: does not use what type of physical activity do you participate in: walking frequency: 3-4 times per week seatbelt use: always do you feel safe at home: Yes additional social history: Boyfriend - Ab HPI Encounter for routine gynecological examination Details: MAYKEL VILLAR is a 24 year old who presents for annual exam. Last PAP: due History of abnormal PAP: no Other preventative health care screenings: PCP - Dr. Flores - PCP has not monitored routine labs Female Reproductive History Last Menstrual Period: 01/11/24 Cycle Length: 21-35 Bleeding Duration: 5 Questions: metorrhagia: No, sexually active: Yes, dyspareunia: No and PCB: No Menopausal Symptoms: No hot flashes, No night sweats, No weight change, No mood changes, No difficulty concentrating, No sleep problems and No change in libido ROS Const Constitutional: Reports as per HPI; Denies fatigue, increased appetite, poor appetite, night sweats, weight gain or weight loss Cardio Card: Reports chest pain (occasional left collar bone discomfort x 3 days intermittent) Resp Resp: Denies cough or dyspnea GI GI: Reports as per HPI; Denies abdominal pain, bloating, constipation, nausea or vomiting : Reports as per HPI and other; Denies difficulty voiding, dysuria, hematuria, hot flashes, nipple discharge, pelvic pain, prolapse symptoms, urinary frequency, urinary incontinence, urinary urgency, vaginal discharge, vaginal dryness, vaginal odor or vaginal pruritus Skin Skin/Breast: Denies changing lesions, breast mass, breast pain, breast skin changes or nipple discharge Psych Psych: Reports depression (mood changes the weekbefore menses); Denies anxiety, change in libido or difficulty concentrating Exam Const General: cooperative, healthy appearing, comfortable, no acute distress, well developed and well groomed [facility] Head: normal to inspection and normocephalic Ears: hearing grossly normal bilaterally and external ears normal Nose: external nose normal Face and sinus: normal facial exam Neck Neck: normal visual inspection, full ROM and no lymphadenopathy Thyroid: thyroid normal Chest Chest palpation inspection: normal inspection of the chest Breast inspection: normal inspection of the breasts and normal inspection of the axillae Breast palpation: normal palpation of the breasts, normal palpation of the axillae and no axillary lymphadenopathy Resp Effort Inspection: normal respiratory effort Auscultation: clear to auscultation bilaterally Cardio Rate: regular rate Rhythm: regular rhythm (more content not included)... Normal [facility] L501.4020on 12-23-2023 TROPONIN-I HS < 3 Low 3.0-54.0 [facility] Comment on above: Order Comment: 2 Result Comment: Costa taylor Note: New Test Units and Gender Specific Reference Ranges. For more information see Policy Stat Procedure [place] High Sensitivity Troponin (TNIH) and attachments. Performed By: #### L 501.4020 #### [facility] Laboratory [address] [place], [address] 12 Lead EKGon 12-22-2023 12 Lead EKG [facility] Cardiovascular Services [address] [place] [address] 12 Lead EKG 12/22/23 2215 MR#: [id number] Acct: [id number] Name: MAYKEL VILLAR Rep #: [id number] : 2000 23 From: Hemanth Moore MD Attending Dr: Status: DEP ER Ordering Dr: Narinder Barrera DO Date: 12/22/23 Location: ED Sex: F C Admitted: Test Reason : CP Blood Pressure : / mmHG Vent. Rate : 121 BPM Atrial Rate : 121 BPM P-R Int : 132 ms QRS Dur : 088 ms QT Int : 330 ms P-R-T Axes : 057 064 032 degrees QTc Int : 468 ms Sinus tachycardia Otherwise normal ECG Confirmed by OSCAR NATHAN, HEMANTH ([id number]), deputy editor in chief GEORGIA ROMAN ([id number]) on 12/23/2023 1:56:20 PM Referred By: Confirmed By:HEMANTH MOORE MD 12/23/23 1356 Date Hemanth Moore MD CC: Dr. Gael Flores MD; Dr. Narinder Barrera DO Signed Normal [facility] Basic Metabolic Profile (BMP )on 12-22-2023 BUN/CRE 15.6 RATIO Normal 10-20 [facility] Comment on above: Order Comment: BRITNI CTOR TO SPECIFY Performed By: #### L 400.0001 #### [facility] Laboratory [address] [place], [address] CA,Total 9.6 mg/dL Normal 8.5-10.1 [facility] Comment on above: Order Comment: BRITNI CTOR TO SPECIFY Performed By: #### L 400.0001 #### [facility] Laboratory [address] [place], [address] Chloride [Moles/Vol] 104 mmol/L Normal 98-107 [facility] Comment on above: Order Comment: BRITNI CTOR TO SPECIFY Performed By: #### L 400.0001 #### [facility] Laboratory [address] [place], [address] CO2 [Moles/Vol] 27.0 mmol/L Normal 21.0-32.0 [facility] Comment on above: Order Comment: BRITNI CTOR TO SPECIFY Performed By: #### L 400.0001 #### [facility] Laboratory [address] [place], [address] Creatinine [Mass/Vol] 1.09 mg/dL High 0.55-1.02 [facility] Comment on above: Order Comment: BRITNI CTOR TO SPECIFY Result Comment: The validity of the calculated GFR GFRAA in patients over 70 years has not been determined. Clinical correlation is essential. Performed By: #### L 400.0001 #### [facility] Laboratory [address] [place], [address] ECRCL 98.83 ml/min Normal [facility] Comment on above: Order Comment: BRITNI CTOR TO SPECIFY Performed By: #### L 400.0001 #### [facility] Laboratory [address] [place], [address] EST GFR - AA 81 mL/min Normal >60 [facility] Comment on above: Order Comment: COLLE CTOR TO SPECIFY Result Comment: Afri can [place] GFR Calc Performed By: #### L 400.0001 #### [facility] Laboratory [address] [place], [address] GAP 7 Normal 5-15 [facility] Comment on above: Order Comment: BRITNI CTOR TO SPECIFY Performed By: #### L 400.0001 #### [facility] Laboratory [address] [place], [address] GFR/1.73 sq M.predicted among non-blacks MDRD (S/P/Bld) [Vol rate/Area] 67 mL/min/{1.73_m2} Normal >60 [facility] Comment on above: Order Comment: COLLE CTOR TO SPECIFY Result Comment: Non- GFR Calc Performed By: #### L 400.0001 #### [facility] Laboratory [address] [place], [address] Glucose [Mass/Vol] 94 mg/dL Normal 74-106 [facility] Comment on above: Order Comment: BRITNI CTOR TO SPECIFY Performed By: #### L 400.0001 #### [facility] Laboratory [address] [place], [address] Potassium [Moles/Vol] 3.2 mmol/L Low 3.5-5.1 [facility] Comment on above: Order Comment: BRITNI CTOR TO SPECIFY Performed By: #### L 400.0001 #### [facility] Laboratory [address] [place], [address] Sodium [Moles/Vol] 138 mmol/L Normal 136-145 [facility] Comment on above: Order Comment: BRITNI CTOR TO SPECIFY Performed By: #### L 400.0001 #### [facility] Laboratory [address] [place], [address] Urea nitrogen [Mass/Vol] 17 mg/dL Normal 7-18 [facility] Comment on above: Order Comment: BRITNI CTOR TO SPECIFY Performed By: #### L 400.0001 #### [facility] Laboratory [address] [place], [address] CBC W/Diff, Automatedon 09-0 4-4 Absolute Lymph 3.36 X10 3/uL Normal 0.83-4.51 [facility] Comment on above: Performed By: #### L 400.0001 #### [facility] Laboratory [address] [place], [address] Absolute Neut 2.7 X10 3/uL Normal 2.0-7.7 [facility] Comment on above: Performed By: #### L 400.0001 #### [facility] [address] [place], [address] Basophils/100 WBC (Bld) 0.6 % Normal 0-1 [facility] Comment on above: Performed By: #### L 400.0001 #### [facility] Laboratory [address] [place], [address] Eosinophils/100 WBC (Bld) 1.3 % Normal 0-5 [facility] Comment on above: Performed By: #### L 400.0001 #### [facility] Laboratory [address] [place], [address] Erythrocyte distribution width (RBC) [Ratio] 12.1 % Normal 11.6-14.6 [facility] Comment on above: Performed By: #### L 400.0001 #### [facility] Laboratory [address] [place], [address] Hematocrit (Bld) [Volume fraction] 41.3 % Normal 37-47 [facility] Comment on above: Performed By: #### L 400.0001 #### [facility] Laboratory [address] [place], [address] Hemoglobin (Bld) [Mass/Vol] 13.9 g/dL Normal 12.0-15.0 [facility] Comment on above: Performed By: #### L 400.0001 #### [facility] Laboratory [address] [place], [address] IG% 0.300 Normal 0.0-0.9 [facility] Comment on above: Result Comment: IG% - Immature Granulocytes (promyelocytes, myelocytes and metamyelocytes) > 1% indicates that a LEFT SHIFT is Present. Performed By: #### L 400.0001 #### [facility] Laboratory [address] [place], [address] Lymphocytes/100 WBC (Bld) 50.2 % High 19-41 [facility] Comment on above: Performed By: #### L 400.0001 #### [facility] [address] [place], [address] MCH (RBC) [Entitic mass] 29.4 pg Normal 27.0-32.0 [facility] Comment on above: Performed By: #### L 400.0001 #### [facility] Laboratory [address] [place], [address] MCHC (RBC) [Mass/Vol] 33.7 g/dL Normal 32-36 [facility] Comment on above: Performed By: #### L 400.0001 #### [facility] Laboratory [address] [place], [address] MCV (RBC) [Entitic vol] 87.5 fL Normal 81-99 [facility] Comment on above: Performed By: #### L 400.0001 #### [facility] Laboratory [address] [place], [address] Monocytes/100 WBC (Bld) 7.6 % Normal 0-10 [facility] Comment on above: Performed By: #### L 400.0001 #### [facility] Laboratory [address] [place], [address] Neutrophils/100 WBC (Bld) 40.0 % Low 47-70 [facility] Comment on above: Performed By: #### L 400.0001 #### [facility] Laboratory [address] [place], [address] Nucleated RBC (Bld) [#/Vol] 0 10*3/uL Normal 0-5 [facility] Comment on above: Performed By: #### L 400.0001 #### [facility] Laboratory [address] [place], [address] Platelet mean volume (Bld) [Entitic vol] 10.4 fL Normal 6.2-12.0 [facility] Comment on above: Performed By: #### L 400.0001 #### [facility] Laboratory [address] [place], [address] Platelets (Bld) [#/Vol] 233 10*3/uL Normal 150-450 [facility] Comment on above: Performed By: #### L 400.0001 #### [facility] Laboratory [address] [place], [address] RBC (Bld) [#/Vol] 4.72 10*6/uL Normal 4.2-5.4 [facility] Comment on above: Performed By: #### L 400.0001 #### [facility] [address] [place], [address] RDW SD 39.3 fl Normal 35.1-43.9 [facility] Comment on above: Performed By: #### L 400.0001 #### [facility] Laboratory [address] [place], [address] WBC (Bld) [#/Vol] 6.7 10*3/uL Normal 4.4-11.0 [facility] Comment on above: Performed By: #### L 400.0001 #### [facility] Laboratory [address] [place] [place], [address] Chest 1 View (Portable)on Chest 1 View (Portable) [facility] Imaging Services [address] [place] [address] Chest 1 View (Portable) MR#: [id number] Acct: [id number] Name: MAYKEL VILLAR Rep #: [id number] : 2000 F 23 From: Zana jacobs MD PCP: Dr. Gael Flores MD Status: REG ER Study: Chest 1 View (Portable) Date of Exam: 12/22/23 Exam# [id number] Ordering Dr: Narinder Barrera DO [id number] STUDY: X-RAY CHEST REASON FOR EXAM: Female, 23 years old. chest pain TECHNIQUE: Single AP portable view of the chest. COMPARISON: None. FINDINGS: The lungs are clear and expanded. There is no demonstrated pleural abnormality. Normal size heart. Normal mediastinum and margie. Normal visualized pulmonary arteries. Normal visualized aortic arch and descending thoracic aorta. Normal visualized thoracic spine. Normal visualized ribs, clavicles, and shoulders. There is no demonstrated abnormality of the visualized soft tissue structures of the upper abdomen. RAD/Chest 1 View (Portable) IMPRESSION: Normal x-ray examination of the chest. Electronically Signed: Zana Mantilla MD at 23:04 EDT , CC: Dr. Gael Flores MD; Dr. Narinder Barrera DO [place] [employer] Supervisor: Signed Normal [facility] D-Dimer Quantitative (DVT/PE )on 12-22-2023 D-DIMER QUANT < 0.27 Low 0.27-0.49 [facility] Comment on above: Result Comment: NORM AL D-Dimer level (<0.50) indicates no DVT or PE. Performed By: #### L 700.6800 #### [facility] Laboratory [address] [place], [address] Emergency Department Summary on 12-22-2023 Emergency Department Summary [facility] Medical Records Department [address] [place] [address] Emergency Department Summary 12/22/23 MR#: [id number] Acct: [id number] Name: MAYKEL VILLAR Rep #: [id number] : 2000 23 From: Narinder Barrera DO PCP: Dr. Gael Flores MD Status:REG ER Location: ED HPI History of Present Illness Chief Complaint: Chest Pain PFSH PFSH Medical History Pneumonia Head ache Gastrointestinal problem Bone fracture Urinary tract infection Concussion without loss of consciousness, initial encounter Asthma Home Medications ???Medication ???Instructions ???Recorded ???Last Taken ???Type drospirenone 3 mg-ethinyl 1 tab PO QDAY 10/06/23 Unknown History estradiol 0.02 mg tablet (Vestura (28)) sumatriptan succinate 25 mg tablet See Rx Instructions PO .COMPLEX 10/06/23 Unknown Rx (Imitrex) #10 tabs Allergy/AdvReac Type Severity Reaction Status Date / Time No Known Allergies Allergy Verified 12/22/23 21:56 Family History Father Type 1 diabetes Hypertension Mother Hypertension Grandfather Cancer prostate Grandmother Cancer uterine Surgical History History of reduction of closed dislocation H/O rhinoplasty Social History household members: family housing: house current occupational status: employed and student current occupation: [employer], attending [employer] Smoking Status: Never smoker Electronic Cigarette Use: not used alcohol intake: never substance use type: does not use what type of physical activity do you participate in: walking frequency: 3-4 times per week seatbelt use: always do you feel safe at home: Yes EXAM Physical Exam Const Vital Signs: 12/22/23 21:56 12/22/23 22:34 Temperature 97 F L Temperature Source Temporal Pulse Rate 104 H Respiratory Rate 18 Blood Pressure 148/98 H Blood Pressure Mean 114 Pulse Ox 100 100 Oxygen Delivery Method Room Air Room Air [facility] [place] Narrative Medical decision making narrative: HISTORY OF PRESENT ILLNESS: 23-year-old female presents with chest pain. She notes acute onset of left side chest pain is sharp worse with deep breath. It is not exertional. Denies any bleeding diathesis. Denies any cough fever chills. Denies any vomiting or diarrhea. Denies any family history of early premature cardiac . Denies smoking cigarettes endorses taking estrogen based from oral contraceptives. Patient denies sudden onset of pain, no tearing sensation, no migratory symptoms, no new numbness, weakness or loss of sensation. Patient denies family history or personal history of Marfan syndrome or Stormy-Danlos. The patient denies recent surgery in the last 4 weeks or immobilization in the last 3 days, denies previous diagnosis of DVT or PE, hemoptysis, unilateral leg swelling or malignancy with treatment the last 6 months. REVIEW OF SYSTEMS: All other systems reviewed and are negative except as noted in the history of present illness. At least 10 review of systems reviewed and are negative except as noted in history of present illness. PHYSICAL EXAM: Nursing triage notes reviewed, Vital signs reviewed Constitutional: please see mdm HENT: MMM Eyes: Pupils equal round and reactive to light, Extraocular muscles intact Neck: No stridor, no JVD, full neck ROM Lungs: Clear to auscultation, No wheezing or rales. No increased work of breathing, no conversational dyspnea, no accessory muscle use, no nasal flaring. No respiratory distress noted Heart: Regular rate and rhythm, No murmurs, No rubs and No gallops, 2+ distal pulses (radial, femoral, posterior tibial) in all extremities Abdomen: Soft, there is no tenderness, rigidity, rebound or guarding, no obvious peritoneal signs, no palpable pulsatile abdominal masses, no auscultated abdominal bruit : No CVAT Extremities: No edema Neuro: No focal neurological deficits, cranial nerves II through XII intact, 5/5 strength in all extremities. Intact sensation to light touch in all extremities, 2+ reflexes bilateral patella tendons. Normal gait. No ataxia. Skin: No rash or lesions noted MEDICAL DECISION MAKING: Chief Complaint: Chest pain External records reviewed: No recent adVanced imaging of the chest Factors affecting care: None Social determinants of health: Denies smoking or illicit drug use History obtained from others: Patient's mother Consults: none MDM Narrative: The patient was initially tachycardic rate of 104 otherwise hemodynamically stable, afebrile and nontoxic-appearing. No focal cardiopulmonary abnormalities noted. (more content not included)... Normal [facility] [id number] 12-22-2023 TROPONIN-I HS < 3 Low 3.0-54.0 [facility] Comment on above: Order Comment: COLLE CTOR TO SPECIFY Result Comment: Costa taylor Note: New Test Units and Gender Specific Reference Ranges. For more information see Policy Stat Procedure [place] High Sensitivity Troponin (TNIH) and attachments. Performed By: #### L 400.0001 #### [facility] Laboratory [address] [place], [address] Urinalysis, Completeon 12-21 BACTERIA 0 SEEN Normal None Seen [facility] Comment on above: Order Comment: CLEAN CATCH Performed By: #### L 700.6800 #### [facility] [address] [place], [address] EPI,SQUAMOUS 0 SEEN Normal 5-10 [facility] Comment on above: Order Comment: CLEAN CATCH Performed By: #### L 700.6800 #### [facility] [address] [place], [address] Mucus Ql (Urine sed) 0 SEEN Normal [facility] Comment on above: Order Comment: CLEAN CATCH Performed By: #### L 700.6800 #### [facility] [address] [place], [address] RBC 0 SEEN Normal 0-5 [facility] Comment on above: Order Comment: CLEAN CATCH Performed By: #### L 700.6800 #### [facility] [address] [place], [address] WBC 0 SEEN Normal 0-5 [facility] Comment on above: Order Comment: CLEAN CATCH Performed By: #### L 700.6800 #### [facility] [address] [place], [place], [id number] Absolute lymphocyte counton 12-01-2021 Lymphocytes Auto (Unsp spec) [#/Vol] 2.67 10*3/uL 0.83-4.51 [facility] Work Phone: Basophil percentageon 2021 Basophils/100 WBC (Bld) 0.7 % 0-1 [facility] Work Phone: Chloride [Moles/Vol] 108 mmol/L 98-107 [facility] Work Phone: Eosinophils/100 WBC (Bld) 1.4 % 0-5 [facility] Work Phone: Glucose [Mass/Vol] 112 mg/dL 74-106 [facility] Work Phone: Comment on above: Fasting Glucose resu lt from 100 to 125 mg/dL suggests IMPAIRED HOMEOSTASIS per A.D.A. criteria. Neutrophils (Bld) [#/Vol] 2.5 10*3/uL 2.0-7.7 [facility] Work Phone: Neutrophils/100 WBC (Bld) 43.1 % 47-70 [facility] Work Phone: Potassium [Moles/Vol] 3.5 mmol/L 3.5-5.1 [facility] Work Phone: Sodium [Moles/Vol] 140 mmol/L 136-145 [facility] Work Phone: WBC (Bld) [#/Vol] 5.8 10*3/uL 4.4-11.0 [facility] Work Phone: Basophil percentage 0 SEEN /hpf 0-5 [facility] Work Phone: Bilirubin Test strip Ql (U)o n 12-01-2021 Bilirubin Ql (U) Negative Negative [facility] Work Phone: Blood erythrocytes count (nu mber/volume)on 12-01-2021 RBC (Bld) [#/Vol] 4.41 10*6/uL 4.2-5.4 [facility] Work Phone: Blood hemoglobin measurement (mass/volume)on 12-01-2021 Hemoglobin (Bld) [Mass/Vol] 13.9 g/dL 12.0-15.0 [facility] Work Phone: Blood lymphocytes/100 leukoc yteson 12-01-2021 Lymphocytes/100 WBC (Bld) 46.0 % 19-41 [facility] Work Phone: Blood monocytes/100 leukocyt eson 12-01-2021 Monocytes/100 WBC (Bld) 8.6 % 0-10 [facility] Work Phone: Blood platelet mean volumeon 12-01-2021 Platelet mean volume (Bld) [Entitic vol] 10.1 fL 6.2-12.0 [facility] Work Phone: Determination of erythrocyte mean corpuscular volume (MCV)on 12-01-2021 MCV (RBC) [Entitic vol] 90.0 fL 81-99 [facility] Work Phone: Hematocrit Auto (Bld) [Volum e fraction]on 12-01-2021 Hematocrit (Bld) [Volume fraction] 39.7 % 37-47 [facility] Work Phone: Ketones Test strip Ql (U)on 12-01-2021 Ketones Ql (U) Negative Negative [facility] Work Phone: Laboratory - Chemistry and C hemistry - challengeon 12-01-2021 CO2 [Moles/Vol] 25.0 mmol/L 21.0-32.0 [facility] Work Phone: Urea nitrogen/Creatinine [Mass ratio] 14.0 mg/mg 10-20 [facility] Work Phone: HCG ( test) Ql (U) Negative [facility] Work Phone: Comment on above: Very dilute urine sp ecimens, as indicated by a low specificgravity, may not contain packaging sales representative levels of hCG. If is still suspected, a first morning urinespecimen should be collected 48 hours later and tested. Laboratory - Hematology and Cell countson 12-01-2021 Erythrocyte distribution width (RBC) [Entitic vol] 39.4 fL 35.1-43.9 [facility] Work Phone: Erythrocyte distribution width (RBC) [Ratio] 11.9 % 11.6-14.6 [facility] Work Phone: Immature granulocytes/100 WBC (Bld) 0.200 % 0.0-0.9 [facility] Work Phone: Comment on above: IG% - Immature Granu locytes (promyelocytes, myelocytes and metamyelocytes) > 1% indicates that a LEFT SHIFT is Present. MCH (RBC) [Entitic mass] 31.5 pg 27.0-32.0 [facility] Work Phone: Nucleated RBC/100 WBC (Bld) [Ratio] 0 % 0-5 [facility] Work Phone: MCHC Auto (RBC) [Mass/Vol]on 12-01-2021 MCHC (RBC) [Mass/Vol] 35.0 g/dL 32-36 [facility] Work Phone: Mucus LM Ql (Urine sed)on Mucus Ql (Urine sed) 0 SEEN /hpf [facility] Work Phone: Nitrite Test strip Ql (U)on 12-01-2021 Nitrite Ql (U) Negative Negative [facility] Work Phone: No Panel Informationon 12-01 Estimated Creatinine Clearance Calc 97.19 ml/min [facility] Work Phone: Estimated GFR (MDRD) Amer 91 mL/min >60 [facility] Work Phone: Comment on above: GFR Calc Estimated GFR (MDRD) Non-Af Amer 75 mL/min >60 [facility] Work Phone: Comment on above: Non- GFR Calc Platelets bldon 12-01-2021 Platelets (Bld) [#/Vol] 226 10*3/uL 150-450 [facility] Work Phone: Protein Test strip Ql (U)on 12-01-2021 Protein Ql (U) Negative Negative [facility] Work Phone: Serum or plasma calcium madhu urement (mass/volume)on 12-01-2021 Calcium [Mass/Vol] 8.9 mg/dL 8.5-10.1 [facility] Work Phone: Serum or plasma creatinine m easurement (mass/volume)on 12-01-2021 Creatinine [Mass/Vol] 1.00 mg/dL 0.55-1.02 [facility] Work Phone: Comment on above: The validity of the calculated GFR & GFRAA in patients over 70 years has not been determined. Clinical correlation is essential. Serum or plasma urea nitroge n measurement (mass/volume)on 12-01-2021 Urea nitrogen [Mass/Vol] 14 mg/dL 7-18 [facility] Work Phone: Squamous epithelial cells de tection in urine sediment by light microscopyon 12-01-2021 Epithelial cells.squamous LM Ql (Urine sed) 0-5 SEEN /hpf 5-10 [facility] Work Phone: Thin prep Papanicolaou smear with manual screeningon 12-01-2021 Thin prep Papanicolaou smear with manual screening 7 08-31 [facility] Work Phone: Urine blood detectionon 11-17 RBC Ql (U) Negative Negative [facility] Work Phone: RBC Ql (U) 0 SEEN /hpf 0-5 [facility] Work Phone: Urine clarityon 12-01-2021 Clarity (U) Clear Clear [facility] Work Phone: Urine color determinationon 12-01-2021 Color (U) Straw Yellow [facility] Work Phone: Urine glucose detectionon Glucose Ql (U) Normal mg/dl Normal [facility] Work Phone: Urine leukocyte esterase det ection by dipstickon 12-01-2021 Leukocyte esterase Test strip Ql (U) Negative Negative [facility] Work Phone: Urine pHon 12-01-2021 pH (U) 7.0 [pH] 5.0 - 8.0 [facility] Work Phone: Urine sediment bacteria coun t by microscopy (number/high power field)on 12-01-2021 Bacteria LM.HPF (Urine sed) [#/Area] 1 /[HPF] None Seen [facility] Work Phone: Urine specific gravity measu rementon 12-01-2021 Specific gravity (U) [Rel density] 1.005 1.002-1.030 [facility] Work Phone: Urobilinogen Auto test strip Ql (U)on 12-01-2021 Urobilinogen Ql (U) Normal mg/dl Normal [facility] Work Phone: Progress Noteon 04-25-2021 Education And Training Manager Authentication Interface Message Text Patient ID: Maykel Villar is a 21 y.o. female. Her chief complaint(s) include: Abdominal Pain and Urinary Problems (UNABLE TO COMPLETELY EMPTY BLADDER, NOT ABLE TO URINATE MUCH) Assessment 1. Symptoms involving urinary system Plan Maykel was seen today for abdominal pain and urinary problems. Diagnoses and all orders for this visit: Symptoms involving urinary system - POCT urinalysis dipstick - Urine culture (Clinic Collect) Other orders - Influenza Vaccine 0.5 mL >= 6 mo Quadrivalent (PF) Rest and fluids Call for any questions/concerns/pr oblems/changes or worsening of sx. Return if symptoms worsen or fail to improve. Subjective She is unaccompanied. Urinary Problems The onset has been acute. The duration has been 3 days. The pattern is persistent. The course is unchanging. The patient's symptoms have included urinary burning. The patient's symptoms have included no fever, no sore throat, no cough, no vomiting, no diarrhea, no constipation, no vaginal discharge, no back pain and no rash. There has been no contributing factors. Sick contacts: none. Primary Care Review of Systems Objective Vital Signs 04/25/21 1522 Temp: 37 C (98.6 F) TempSrc: Temporal Weight: 72.4 kg There is no height or weight on file to calculate BMI. Physical Exam Nursing note reviewed. Constitutional: She appears well. She is active. No distress. HENT: Head: Atraumatic. Ears: Right Ear: Tympanic membrane normal. Left Ear: Tympanic membrane normal. Mouth/Throat: Mucous membranes are moist. Eyes: Conjunctivae are normal. Cardiovascular: Normal rate and regular rhythm. Heart murmur not heard. Pulmonary/Chest: Breath sounds normal. There is normal air entry. Neurological: She is alert. Vitals reviewed: Temperature 37 C (98.6 F), temperature source Temporal, weight 72.4 kg. Last Result POCT urinalysis dipstick Collection Time: 04/25/21 3:33 PM Result Value Ref Range POCT, Leukocytes, Urine Negative Negative POCT Nitrite, Urine Negative Negative POCT Protein, Urine Negative Negative - Trace mg/dl POCT Urine pH 6.5 5.0 - 8.0 pH POCT Blood, Urine Trace Non-Hemolyzed (A) Negative POCT Urine Specific [place] 1.025 1.005 - 1.030 POCT Ketones, Urine Negative Negative mg/dl POCT Glucose, Urine Negative Negative mg/dl Normal [facility] Urine Cultureon 04-25-2021 Bacteria identified Cx Nom (U) Is this specimen being sent to an external lab?->No Release to patient->Automatic [id number]&Urine-Midstream ^^^Urine&Urine Urine Culture: <10,000 CFU/ml of Normal skin/urogenital patrizia present Source: URNMD Collected: 04/25/21 15:48 Site: Urine Received : 04/26/21 05:52 Urine Culture FINAL 04/28/21 08:52 <10,000 CFU/ml of Normal skin/urogenital patrizia present Normal [facility] Comment on above: Performed By: #### U RINE ####[facility] [place] [phone] [place] Miscellaneous Sendouton 11-27-2020 [facility] SEE COMMENTS Normal [facility] Comment on above: Order Comment: [facility] Disaccharidase Activity Panel, TissueRelease to patient->[id number]&Tissue^\S\^Tissue&Tissue Result Comment: Test Result Flag Unit RefValue Disaccharidase Activity Panel, Ts Lactase 23.2 nmol/min/mg Prot >=14.0 Sucrase 31.6 nmol/min/mg Prot >=19.0 Maltase 81.5 nmol/min/mg Prot >=70.0 Palatinase 7.8 nmol/min/mg Prot >=6.0 Glucoamylase 14.9 nmol/min/mg Prot >=8.0 Interpretation *NEGATIVE* In this sample, the activities of the five disaccharidases were normal indicating that this individual is not affected with a disaccharidase deficiency. ADDITIONAL INFORMATION Colorimetric Enzyme Assay This test was developed and its performance characteristics determined by [facility] in a manner consistent with CLIA requirements. This test has not been cleared or approved by the U.S. Food and Drug Administration. Reviewed By Troy Garcia M.D., Ph.D. Test Performed by: [place] [address] Building Construction Foreman: Juan Carlos Gorman M.D. Ph.D.; CLIA# [id number] [place] [address] Performed By: #### M [facility] [facility] ####[facility] [address] [phone] Surgical Pathology Teston Surgical Pathology Test SEE BELOW Normal [facility] Comment on above: Result Comment: DAYSI Loyd DIAGNOSIS: A. Esophagus, distal, biopsy: -Squamous mucosa with no significant histopathologic changes. B. Esophagus, proximal, biopsies: -Squamous mucosa with no significant histopathologic changes. C. Stomach, biopsy: -Gastric fundic mucosa with no significant histopathologic changes. D. Small bowel, duodenum, biopsies: -Duodenal mucosa with no significant histopathologic changes. SPECIMEN: A. ESOPHAGEAL BIOPSY- distal B. ESOPHAGEAL BIOPSY- proximal C. STOMACH, BIOPSY D. DUODENAL BIOPSY DATE OF SURGERY: 11/25/2020 CLINICAL INFORMATION: Nausea and vomiting, intractability of vomiting not specified, unspecified vomiting type. GROSS DESCRIPTION: A. Received in formalin labeled with the patient's name and distal esophagus is a broderick soft tissue fragment measuring 0.2 x 0.1 x 0.1 cm. It is totally submitted in one cassette. B. Received in formalin labeled with the patient's name and proximal esophagus are two broderick soft tissue fragments aggregating to 0.4 x 0.1 x 0.1 cm. They are totally submitted in one cassette. C. Received in formalin labeled with the patient's name and stomach is a broderick soft tissue fragment measuring 0.3 x 0.2 x 0.1 cm. It is totally submitted in one cassette. D. Received in formalin labeled with the patient's name and duodenum are two broderick soft tissue fragments aggregating to 0.4 x 0.1 x 0.1 cm. They are totally submitted in one cassette. MICROSCOPIC EXAMINATION: A. Histologic sections show squamous mucosa with normal maturation and no evidence of inflammation, metaplasia, or atypia. B. Histologic sections show squamous mucosa with normal maturation and no evidence of inflammation, metaplasia, or atypia. C. Histologic sections show gastric fundic mucosa with unremarkable glandular architecture. There is no significant lamina propria inflammatory cell population. There is no neutrophilic or granulomatous inflammation. D. Histologic sections show duodenal mucosa with unremarkable villous and crypt architecture. The lamina propria inflammatory cell population is unremarkable. There is no increase in intraepithelial lymphocytes. There is no neutrophilic, eosinophilic, or granulomatous inflammation. STAINS AND PROCEDURES: Stains performed have adequate controls. Testing using analyte specific reagents was developed and its performance characteristics determined by the department of Pathology of [facility]. It has not been specifically cleared or approved by the [place]. FDA. The FDA has determined such clearance or approval is not necessary. MELITON WORTHY DO 11/27/2020 Performed By: #### S UR ####[address] [phone] H. pylori Ag EIAon H. pylori Ag EIA H. pylori Ag EIA: H. pylori Ag: NEGATIVE Source: STOOL Collected: 11/22/20 12:00 Site: Received : 11/23/20 18:30 H. pylori Ag EIA FINAL 11/24/20 13:34 H. pylori Ag: NEGATIVE Immunochromatographic Assay - Normal Result: Negative Normal [facility] Comment on above: Performed By: #### H PYAG ####[facility] [address] [phone] Progress Noteon 11-22-2020 Education And Training Manager Authentication Interface Message Text Patient ID: Maykel Villar is a 20 y.o. female. Her chief complaint(s) include: Sore Throat (Pharyngitis) (fever, stomachache, headache, bodyaches ) and Anxiety (started college wednesday ) Assessment 1. Sore throat 2. Sorethroat Plan Maykel was seen today for sore throat (pharyngitis) and anxiety. Diagnoses and all orders for this visit: Sore throat - POCT rapid strep A antigen Sorethroat - POCT mononucleosis antibodies (Monospot) - Finger/Heel Stick No follow-ups on file. Subjective She is accompanied by her mother. Pharyngitis The onset has been acute. The duration has been 2 days. The pattern is persistent. Characterized by pain with swallowing. Aggravated by eating and drinking. Symptoms are relieved by acetaminophen. The patient's symptoms have included a fever, abdominal pain and nausea. The patient's symptoms have included no chills, no congestion, no stridor, no cough, no vomiting and no diarrhea. Primary Care Review of Systems Objective Vital Signs 11/22/20 0943 Temp: 36.9 C (98.5 F) TempSrc: Temporal Weight: 68.9 kg There is no height or weight on file to calculate BMI. Physical Exam Nursing note reviewed. Constitutional: She appears well. She is active. No distress. HENT: Head: Atraumatic. No sinus tenderness. Ears: Right Ear: Tympanic membrane normal. Left Ear: Tympanic membrane normal. Nose: No nasal discharge. Mouth/Throat: Mucous membranes are moist. Pharynx erythema present. Tonsils are 4+ on the right. Tonsils are 4+ on the left. Tonsillar exudate. Eyes: Conjunctivae are normal. Cardiovascular: Normal rate and regular rhythm. Heart murmur not heard. Pulmonary/Chest: Effort normal and breath sounds normal. There is normal air entry. No respiratory distress. Air movement is not decreased. She has no wheezes. Abdominal: Soft. Bowel sounds are normal. She exhibits no distension and no mass. There is no hepatosplenomegaly. There is abdominal tenderness. There is no rebound and no guarding. Neurological: She is alert. Skin: Capillary refill takes less than 3 seconds. Skin is warm. Findings: No rash. Vitals reviewed: Temperature 36.9 C (98.5 F), temperature source Temporal, weight 68.9 kg, last menstrual period 11/10/2020. Last Result POCT rapid strep A antigen Collection Time: 11/22/20 9:54 AM Result Value Ref Range Strep A Antigen None Detected None Detected Yellow Solution *Present Red Control Line *Present Clear Background *Present Lot Number [id number] Normal [facility] Strep Cultureon 11-22-2020 Strep Culture Is this specimen being sent to an external lab?->No Release to patient->Automatic [id number]&Throat swab^^^Vein&Vein Strep Culture: No Beta hemolytic Streptococci isolated. Source: THRSW Collected: 11/22/20 11:06 Site: Vein Received : 11/22/20 14:30 Strep Culture FINAL 11/24/20 10:12 No Beta hemolytic Streptococci isolated. Normal [facility] Comment on above: Performed By: #### S WERNER ####[address] [phone] CBC W Auto Differential pane l (Bld)on 11-20-2020 Basophils (Bld) [#/Vol] 0.05 10*3/uL Normal <=0.70 [facility] Comment on above: Performed By: #### 5 7021-8 #### [facility] [address] [place], [place] [address] [employer] - Esperanza CHAVEZ [id number] Basophils/100 WBC (Bld) 0.5 % Normal <=2.0 [facility] Comment on above: Performed By: #### 5 7021-8 #### [facility] [address] [place] [address] [employer] Esperanza CHAVEZ [id number] Eosinophils (Bld) [#/Vol] 0.00 10*3/uL Normal <=0.70 [facility] Comment on above: Performed By: #### 5 7021-8 #### [place] [address] [place] [address] [employer] Esperanza ZIMMERMANIA [id number] Eosinophils/100 WBC (Bld) 0.0 % Normal <=10.0 [facility] Comment on above: Performed By: #### 5 7021-8 #### [address] [place] [address] [employer] Esperanza CHAVEZ [id number] Erythrocyte distribution width (RBC) [Entitic vol] 40.4 fL Normal 36.4-46.3 [facility] Comment on above: Performed By: #### 5 7021-8 #### [address] [place] [address] [employer] CHAVEZ [id number] Hematocrit (Bld) [Volume fraction] 36.8 % Low 37.0-47.0 [facility] Comment on above: Performed By: #### 5 7021-8 #### [address] [place] [address] [employer] CHAVEZ [id number] Hemoglobin (Bld) [Mass/Vol] 12.8 g/dL Normal 12.0-16.0 [facility] Comment on above: Performed By: #### 5 7021-8 #### [place] [address] [place] [address] [employer] CHAVEZ [id number] Immature granulocytes (Bld) [#/Vol] 0.03 10*3/uL Normal <=0.10 [facility] Comment on above: Performed By: #### 5 7021-8 #### [address] [place] [address] [employer] CHAVEZ [id number] Immature granulocytes/100 WBC (Bld) 0.30 % Normal <=1.50 [facility] Comment on above: Performed By: #### 5 7021-8 #### [place] [address] [employer] ZIMMERMANIA [id number] Lymphocytes (Bld) [#/Vol] 1.00 10*3/uL Low 1.20-3.40 [facility] Comment on above: Performed By: #### 5 7021-8 #### [place] [address] [employer] ZIMMERMANIA [id number] Lymphocytes/100 WBC (Bld) 10.1 % Low 20.0-40.0 [facility] Comment on above: Performed By: #### 5 7021-8 #### [place] [address] [employer] ZIMMERMANIA [id number] MCH (RBC) [Entitic mass] 30.2 pg Normal 27.0-31.0 [facility] Comment on above: Performed By: #### 5 7021-8 #### [place] [address] [employer] ZIMMERMANIA [id number] MCHC (RBC) [Mass/Vol] 34.8 g/dL Normal 32.0-36.0 [facility] Comment on above: Performed By: #### 5 7021-8 #### [place] [address] [employer] ZIMMERMANIA [id number] MCV (RBC) [Entitic vol] 86.8 fL Normal 80.0-100.0 [facility] Comment on above: Performed By: #### 5 7021-8 #### [place] [address] [employer] ZIMMERMANIA [id number] Monocytes (Bld) [#/Vol] 0.96 10*3/uL High 0.10-0.60 [facility] Comment on above: Performed By: #### 5 7021-8 #### [facility] [address] [facility]. [place] [address] [employer] Yun CLIA [id number] Monocytes/100 WBC (Bld) 9.7 % High <=8.0 [facility] Comment on above: Performed By: #### 5 7021-8 #### [address] [place] [address] [employer] Yun CLIA [id number] Neutrophils (Bld) [#/Vol] 7.89 10*3/uL High 1.40-6.50 [facility] Comment on above: Performed By: #### 5 7021-8 #### [address] [place] [address] [employer] Yun CLIA [id number] Neutrophils/100 WBC (Bld) 79.4 % High 50.0-70.0 [facility] Comment on above: Performed By: #### 5 7021-8 #### [address] [place] [address] [employer] ZIMMERMANIA [id number] Nucleated RBC (Bld) [#/Vol] 0.00 10*3/uL Normal <=0.10 [facility] Comment on above: Performed By: #### 5 7021-8 #### [address] [place] [address] [employer] uYn CLIA [id number] Platelet mean volume (Bld) [Entitic vol] 10.6 fL Normal 9.0-13.0 [facility] Comment on above: Performed By: #### 5 7021-8 #### [address] [place] [address] [employer] ZIMMERMANIA [id number] Platelets (Bld) [#/Vol] 181 10*3/uL Normal 130-400 [facility] Comment on above: Performed By: #### 5 7021-8 #### [facility] [address] [place] [address] [employer] CHVAEZ [id number] RBC (Bld) [#/Vol] 4.24 10*6/uL Normal 4.00-6.30 [facility] Comment on above: Performed By: #### 5 7021-8 #### [facility] [address] [place] [address] [employer] CHAVEZ [id number] WBC (Bld) [#/Vol] 9.93 10*3/uL Normal 4.80-10.80 [facility] Comment on above: Performed By: #### 5 7021-8 #### [facility] [address] [place] [address] [employer]peranza CHAVEZ [id number] CT ABDOMEN AND PELVIS WITH C [facility] 11-20-2020 CT ABDOMEN AND PELVIS WITH CONTRAST EXAMINATION: CT ABDOMEN AND PELVIS WITH CONTRAST, 11/20/2020 6:17 PM EDT HISTORY: Right lower quadrant pain COMPARISON: None. TECHNIQUE: CT scan of the abdomen and pelvis was performed after the administration of IV contrast. CT dose reduction technique was used, including Automated Exposure Control. FINDINGS: Lower thorax: Normal. Liver and biliary tree: Subcentimeter hypodensity in the dome of the liver is too small to characterize and statistically represents a cyst. Gallbladder: Normal. Spleen: Normal. Pancreas: Normal. Adrenal glands: Normal. Kidneys and ureters: No hydronephrosis. Subcentimeter hypodensity in the right upper pole is too small to characterize and statistically represents a cyst. Gastrointestinal tract: Evaluation limited secondary to lack of enteric contrast and close approximation of the hollow viscera secondary to patient's thin habitus. Lower esophagus and stomach are unremarkable. No bowel obstruction. The appendix is not definitively seen, and there are no inflammatory changes near the ileocecal junction to suggest acute appendicitis. Large stool burden compatible with constipation. Peritoneal cavity: Small amount of free fluid in the pelvis. Bladder: Normal. Uterus and ovaries: Normal CT appearance. Vasculature: Patent. Lymph nodes: Normal. Abdominal wall: Normal. Musculoskeletal: No acute or suspicious osseous lesions. IMPRESSION: 1. The appendix was not seen, and there are no inflammatory changes in the right lower quadrant to suggest appendicitis within the limitations of this examination mentioned above. 2. Small amount of nonspecific fluid in the pelvis which may be physiologic. 3. Other findings as above. Normal [facility] Comprehensive metabolic 2000 panelon 11-20-2020 Albumin [Mass/Vol] 4.1 g/dL Normal 3.4-5.0 [facility] Comment on above: Performed By: #### 2 432-8, 0-3 #### [facility] [address] [place] [address] [employer] ZIMMERMANIA [id number] ALP [Catalytic activity/Vol] 47 U/L Low 50-136 [facility] Comment on above: Performed By: #### 2 432-8, 0-3 #### [facility] [address] [facility]. [place] [address] [employer] Yun CLIA [id number] ALT [Catalytic activity/Vol] 19 U/L Normal 14-59 [facility] Comment on above: Performed By: #### 2 432-8, 0-3 #### [facility] [address] [place] [address] [employer] ZIMMERMANIA [id number] Anion gap [Moles/Vol] 10.0 mmol/L Normal <=15.0 [facility] Comment on above: Performed By: #### 2 432-8, 0-3 #### [facility] [address] [place] [address] [employer] Yun CLIA [id number] AST [Catalytic activity/Vol] 23 U/L Normal 15-37 [facility] Comment on above: Performed By: #### 2 432-8, 0-3 #### [facility] [address] [place] [address] [employer] ZIMMERMANIA [id number] Bilirubin [Mass/Vol] 0.7 mg/dL Normal 0.2-1.0 [facility] Comment on above: Performed By: #### 2 8, 3039-3 #### [facility] [address] [place] [address] [employer] ZIMMERMANIA [id number] Calcium [Mass/Vol] 9.1 mg/dL Normal 8.5-10.1 [facility] Comment on above: Performed By: #### 2 432-8, 0-3 #### [facility] [address] [place] [address] [employer] Yun CLIA [id number] Chloride [Moles/Vol] 102 mmol/L Normal 98-107 [facility] Comment on above: Performed By: #### 2 4328, 3039-3 #### [facility] [address] [place] [address] [employer] ZIMMERMANIA [id number] CO2 [Moles/Vol] 22 mmol/L Normal 21-32 [facility] Comment on above: Performed By: #### 2 4328, 3039-3 #### [facility] [address] [place] [address] [employer] [place] ZIMMERMANIA [id number] Creatinine [Mass/Vol] 1.03 mg/dL High 0.51-0.95 [facility] Comment on above: Performed By: #### 2 4323-8, 3039-3 #### [facility] [address] [place] [address] [employer] [place] ZIMMERMANIA [id number] GFR/1.73 sq M.predicted MDRD (S/P/Bld) [Vol rate/Area] mL/min/{1.73_m2} Normal >=59 [facility] Comment on above: Performed By: #### 2 4323-8, 0-3 #### [facility] [address] [place] [address] [employer] ZIMMERMANIA [id number] Glucose [Mass/Vol] 77 mg/dL Normal 74-106 [facility] Comment on above: Performed By: #### 2 432, 3039-3 #### [facility] [address] [place] [address] [employer] CHAVEZ [id number] HGFR GLOMERULAR FILTRATIO N RATE INTERPRETATION~The eGFR is calculated using the MDRD equation.~This equation has been validated in patients with chronic kidney disease;~however, it underestimates the GFR in healthy patients with GFR's over 60 mL/min.~The equation is not valid in children under the age of 18.~NOTE: Criteria for Chronic Kidney Disease:~ ~1. Kidney damage for at least three months, as defined~by structural or functional abnormalities of the kidney,~with or without decreased glomerular filtration rate, manifested by either:~* Pathological abnormalities or~* Markers of Kidney damage, including abnormalities in~the composition of the blood or urine or abnormalities in imaging tests.~ ~2. GFR <60 mL/min/1.73 m squared for at least three months, with or without kidney damage.~ Normal [facility] Comment on above: Performed By: #### 2 43206-24, 3 #### [facility] [address] [facility]. [place] [address] [employer] CHAVEZ [id number] Potassium [Moles/Vol] 3.7 mmol/L Normal 3.5-5.1 [facility] Comment on above: Performed By: #### 2 43206-24, 3039-3 #### [facility] [address] [facility]. [place] [address] [employer] CHAVEZ [id number] Protein [Mass/Vol] 7.4 g/dL Normal 6.4-8.2 [facility] Comment on above: Performed By: #### 2 4323-, 3039-3 #### [facility] [address] [facility]. [place] [address] [employer] CHAVEZ [id number] Sodium [Moles/Vol] 134 mmol/L Low 136-145 [facility] Comment on above: Performed By: #### 2 43206-24, 3039-3 #### [facility] [address] [place] [address] [employer] ZIMMERMANIA [id number] Urea nitrogen [Mass/Vol] 18 mg/dL High 7-17 [facility] Comment on above: Performed By: #### 2 4323-8, 3040-3 #### [facility] [address] [place] [address] [employer] CHAVEZ [id number] LIPASEon 11-20-2020 Lipase [Catalytic activity/Vol] 62 U/L Low 73-393 [facility] Comment on above: Performed By: #### 2 4323-8, 3040-3 #### [facility] [address] [place] [address] [employer] CHAVEZ [id number] URINALYSIS with reflex to CU LTUREon 11-20-2020 BACTERIA TRACE Normal TRACE [facility] Comment on above: Performed By: #### U AR #### [facility] [address] [place] [address] [employer] [place] ZIMMERMANIA [id number] Bilirubin Ql (U) Negative Normal NEGATIVE [facility] Comment on above: Performed By: #### U AR #### [facility] [address] [place] [address] [employer] CHAVEZ [id number] Clarity (U) CLOUDY Abnormal CLEAR [facility] Comment on above: Performed By: #### U AR #### [facility] [address] [place] [address] [employer] CHAVEZ [id number] Color (U) DK YELLOW Abnormal YELLOW [facility] Comment on above: Performed By: #### U AR #### [facility] [address] [place] [address] [employer] [place] ZIMMERMANIA [id number] Glucose Ql (U) Negative Normal NEGATIVE [facility] Comment on above: Performed By: #### U AR #### [facility] [address] [place] [address] [employer] [place] ZIMMERMANIA [id number] Hemoglobin Ql (U) Negative Normal NEGATIVE [facility] Comment on above: Performed By: #### U AR #### [facility] [address] [facility]. [place] [address] [employer] CHAVEZ [id number] HMICRO MICROSCOPIC Normal [facility] Comment on above: Performed By: #### U AR #### [facility] [address] [facility]. [place] [address] [employer] CHAVEZ [id number] Hyaline casts (Urine sed) [#/Area] 10-20 Abnormal 0-8 [facility] Comment on above: Performed By: #### U AR #### [address] [place] [address] [employer] CHAVEZ [id number] KETONE 3+ Abnormal NEGATIVE [facility] Comment on above: Performed By: #### U AR #### [facility] [address] [facility]. [place] [address] [employer] CHAVEZ [id number] Leukocyte esterase Test strip Ql (U) Negative Normal TRACE [facility] Comment on above: Performed By: #### U AR #### [facility] [address] [place] [address]. [place] [address] [employer] [place] ZIMMERMANIA [id number] Nitrite Ql (U) Negative Normal NEGATIVE [facility] Comment on above: Performed By: #### U AR #### [facility] [address] [facility]. [place] [address] [employer] CHAVEZ [id number] pH (U) 5.5 [pH] Normal 5.5-7.5 [facility] Comment on above: Performed By: #### U AR #### [facility] [address] [facility]. [place] [address] [employer] [place] ZIMMERMANIA [id number] Protein Ql (U) 2+ Abnormal NEGATIVE [facility] Comment on above: Performed By: #### U AR #### [facility] [address] [place] [address] [employer] CHAVEZ [id number] RBC LM.HPF (Urine sed) [#/Area] 0-4 Normal 0-4 [facility] Comment on above: Performed By: #### U AR #### [place] [address] [place] [address] [employer] CHAVEZ [id number] Specific gravity (U) [Rel density] 1.036 High 1.010-1.035 [facility] Comment on above: Performed By: #### U AR #### [place] [address] [place] [address] [employer] CHAVEZ [id number] SQUAMOUS EPITHELIALS 10-15 Abnormal 0-5 [facility] Comment on above: Performed By: #### U AR #### [place] [address] [place] [address] [employer] CHAVEZ [id number] Urobilinogen Qn (U) 1.0 {Alyx'U}/dL Normal <=1.0 [facility] Comment on above: Performed By: #### U AR #### [place] [address] [place] [address] [employer] CHAVEZ [id number] WBC LM.HPF (Urine sed) [#/Area] 0-5 Normal 0-5 [facility] Comment on above: Performed By: #### U AR #### [place] [address] [place] [address] [employer] CHAVEZ [id number] VIRAL RESPIRATORY PANELon Adenovirus Not detected Normal NOT DETECTED [facility] Comment on above: Performed By: #### R ESPIRA #### [place] [address] [place] [address] [employer] CHAVEZ [id number] Performed for [address] [place], [place] [address] B parapertussis Not detected Normal NOT DETECTED [facility] Comment on above: Performed By: #### R ESPIRA #### [facility] [address] [place], [place] [address] [employer] Esperanza Yun CLIA [id number] Performed for [facility] [address] [place], [place] [address] B pertussis Not detected Normal NOT DETECTED [facility] Comment on above: Performed By: #### R ESPIRA #### [facility] [address] [place], [place] [address] [employer] ZIMMERMANIA [id number] Performed for [facility] [address] [place], [place] [address] Chlamydia pneumoniae Not detected Normal NOT DETECTED [facility] Comment on above: Performed By: #### R ESPIRA #### [facility] [address] [place], [place] [address] [employer] [place] [id number] Performed for [facility] [address] [place], [place] [address] CORONAVIRUS [id number] Not detected Normal NOT DETECTED [facility] Comment on above: Performed By: #### R ESPIRA #### [facility] [address] [place], [place] [address] [employer] [place] [id number] Performed for [facility] [address] [place], [place] [address] CORONAVIRUS HKU1 Not detected Normal NOT DETECTED [facility] Comment on above: Performed By: #### R ESPIRA #### [facility] [address] [place], [place] [address] [employer] CLIA [id number] Performed for [facility] [address] [place], [place] [address] CORONAVIRUS NL63 Not detected Normal NOT DETECTED [facility] Comment on above: Performed By: #### R ESPIRA #### [facility] [address] [place], [place] [address] [employer] [id number] Performed for [facility] [address] [place], [place] [address] CORONAVIRUS OC43 Not detected Normal NOT DETECTED [facility] Comment on above: Performed By: #### R ESPIRA #### [facility] [address] [place], [place] [address] [employer] Esper[employer] CHAVEZ [id number] Performed for [facility] [address] [place], [place] [address] HPCR TESTING PERFORMED BY PCR METHODOLOGY Normal [facility] Comment on above: Performed By: #### R ESPIRA #### [facility] [address] [place], [place] [address] [employer] Esperanza CHAVEZ [id number] Performed for [facility] [address] [place], [place] [address] HPCRB TEST PERFORMED USING BIOFIRE Normal [facility] Comment on above: Performed By: #### R ESPIRA #### [facility] [address] [place], [place] [address] [employer] [place] ZIMMERMANIA [id number] Performed for [facility] [address] [place], [place] [address] Human Metapneumoviru Not detected Normal NOT DETECTED [facility] Comment on above: Performed By: #### R ESPIRA #### [facility] [address] [place], [place] [address] [employer] ZIMMERMANIA [id number] Performed for [facility] [address] [place], [place] [address] Influenza A Not detected Normal NOT DETECTED [facility] Comment on above: Performed By: #### R ESPIRA #### [facility] [address] [place], [place] [address] [employer] ZIMMERMANIA [id number] Performed for [facility] [address] [place], [place] [address] Influenza A / H1 Normal NOT DETECTED [facility] Comment on above: Performed By: #### R ESPIRA #### [facility] [address] [place], [place] [address] [employer] CHAVEZ [id number] Performed for [facility] [address] [place], [place] [address] Influenza A / H3 Normal NOT DETECTED [facility] Comment on above: Performed By: #### R ESPIRA #### [facility] [address] [place], [place] [address] [employer] CHAVEZ [id number] Performed for [facility] [address] [place], [place] [address] Influenza A H1-2009 Normal NOT [address] [facility] Comment on above: Performed By: #### R ESPIRA #### [facility] [address] [place], [place] [address] [employer]peranza CHAVEZ [id number] Performed for [facility] [address] [place], [place] [address] Influenza B Not detected Normal NOT DETECTED [facility] Comment on above: Performed By: #### R ESPIRA #### [facility] [address] [place] [address] [employer] ZIMMERMANIA [id number] Performed for [facility] [address] [place], [place] [address] Mycoplasma pneumonia Not detected Normal NOT DETECTED [facility] Comment on above: Performed By: #### R ESPIRA #### [facility] [address] [place], [place] [address] [employer] CHAVEZ [id number] Performed for [facility] [address] [place], [place] [address] Parainfluenza 1 Not detected Normal NOT DETECTED [facility] Comment on above: Performed By: #### R ESPIRA #### [facility] [address] [place], [place] [address] [employer] CHAVEZ [id number] Performed for [facility] [address] [place], [place] [address] Parainfluenza 2 Not detected Normal NOT DETECTED [facility] Comment on above: Performed By: #### R ESPIRA #### [facility] [address] [place] [address] [employer] Esperanza CHAVEZ [id number] Performed for [facility] [address] [place], [place] [address] Parainfluenza 3 Not detected Normal NOT DETECTED [facility] Comment on above: Performed By: #### R ESPIRA #### [facility] [address] [place], [place] [address] [employer] - [facility] [id number] Performed for [facility] [address] [place], [place] [address] Parainfluenza 4 Not detected Normal NOT DETECTED [facility] Comment on above: Performed By: #### R ESPIRA #### [facility] [address] [place], [place] [address] [employer] - [facility] [id number] Performed for [facility] [address] [place], [place] [address] Rhinovirus Not detected Normal NOT DETECTED [facility] Comment on above: Performed By: #### R ESPIRA #### [facility] [address] [place] [address] [employer] - [facility] [id number] Performed for [facility] [address] [place], [place] [address] RSV Not detected Normal NOT DETECTED [facility] Comment on above: Performed By: #### R ESPIRA #### [facility] [address] [place], [place] [address] [facility] [employer] [id number] Performed for [facility] [address] [place], [place] [address] SARS-CoV-2 (COVID-19) RNA JOSE A+probe Ql (Unsp spec) Not detected Normal NOT DETECTED [facility] Comment on above: Performed By: #### R ESPIRA #### [facility] [address] [place], [place] [address] [employer] [facility] [id number] Performed for [facility] [address] [place], [place] [address] Immunoglobulin Aon 1 Immunoglobulin A 164 mg/dL Normal 61-348 [facility] Comment on above: Order Comment: Relea se to patient->Automatic Is this specimen being sent to an external lab?->No [id number]&Blood^\S\^Venous&Venous Performed By: #### I GA #### [place] [address] Transglutaminase IgAon 09-13 Transglutaminase IgA <1.2 Normal <4.0 (Negative) [facility] Comment on above: Order Comment: Relea se to patient->Automatic Is this specimen being sent to an external lab?->No 11584&Blood^\S\^Venous&Venous Result Comment: Test Performed by: [facility] [address] [place] [address] Building Construction Foreman: Juan Carlos Gorman M.D. Ph.D.; CLIA# [id number] Performed By: #### T RGLA #### [place] [address] C-Reactive Proteinon 021 CRP [Mass/Vol] mg/L Normal 0.0-1.0 [facility] Comment on above: Order Comment: Relea se to patient->Automatic Is this specimen being sent to an external lab?->[place] [address]&Blood^\S\^Venous&Venous Result Comment: CRP determinations in neonates should be interpreted with caution. CRP may be elevated in circumstances not associated with inflammation (e.g. difficult delivery, pneumothorax). In premature neonates CRP levels may not rise to abnormal levels even if sepsis is present; some speculate that immature liver function decreases the ability to generate a CRP response. Performed By: #### C RP #### [place] [address] Comp Metabolic Panelon 09-12 Albumin [Mass/Vol] 4.6 g/dL Normal 3.5-5.0 [facility] Comment on above: Order Comment: Relea se to patient->Automatic Is this specimen being sent to an external lab?->No [id number]&Blood^\S\^Venous&Venous Performed By: #### C MP #### [address] [address] ALP [Catalytic activity/Vol] 39 U/L Low 43-83 [facility] Comment on above: Order Comment: Relea se to patient->Automatic Is this specimen being sent to an external lab?->No [id number]&Blood^\S\^Venous&Venous Performed By: #### C MP #### [address] [id number] ALT [Catalytic activity/Vol] 22 U/L Normal 0-31 [facility] Comment on above: Order Comment: Relea se to patient->Automatic Is this specimen being sent to an external lab?->No [id number]&Blood^\S\^Venous&Venous Performed By: #### C MP #### [address] [address] AST [Catalytic activity/Vol] 23 U/L Normal 0-31 [facility] Comment on above: Order Comment: Relea se to patient->Automatic Is this specimen being sent to an external lab?->No [id number]&Blood^\S\^Venous&Venous Performed By: #### C MP #### [address] [address] Bili,Total 1.0 mg/dl Normal 0.0-1.0 [facility] Comment on above: Order Comment: Relea se to patient->Automatic Is this specimen being sent to an external lab?->No [id number]&Blood^\S\^Venous&Venous Performed By: #### C MP #### [address] [address] Calcium [Mass/Vol] 9.8 mg/dL Normal 7.6-11.0 [facility] Comment on above: Order Comment: Relea se to patient->Automatic Is this specimen being sent to an external lab?->No [id number]&Blood^\S\^Venous&Venous Performed By: #### C MP #### [address] [address] Chloride [Moles/Vol] 103 mmol/L Normal 96-108 [facility] Comment on above: Order Comment: Relea se to patient->Automatic Is this specimen being sent to an external lab?->No [id number]&Blood^\S\^Venous&Venous Performed By: #### C MP #### [address] [address] CO2 [Moles/Vol] 24.2 mmol/L Normal 22.0-29.0 [facility] Comment on above: Order Comment: Relea se to patient->Automatic Is this specimen being sent to an external lab?->No [id number]&Blood^\S\^Venous&Venous Performed By: #### C MP #### [place] [address] Creatinine [Mass/Vol] 0.83 mg/dL Normal 0.50-1.00 [facility] Comment on above: Order Comment: Relea se to patient->Automatic Is this specimen being sent to an external lab?->No [id number]&Blood^\S\^Venous&Venous Result Comment: Premature 0.3-1.0 mg/dL Performed By: #### C MP #### [place] [address] Glucose [Mass/Vol] 79 mg/dL Normal 70-99 [facility] Comment on above: Order Comment: Relea se to patient->Automatic Is this specimen being sent to an external lab?->No [id number]&Blood^\S\^Venous&Venous Result Comment: Criteria for Diagnosis of Diabetes(Effective 09/22/10): Fasting specimen (no caloric intake for at least 8 hours). <100 mg/dl Normal 100-125 mg/dl Increased Risk for Diabetes >125 mg/dl Diagnostic for Diabetes Random Glucose (any time of day without regard to last meal). >=200 mg/dl plus Classic Symptoms of Diabetes Performed By: #### C MP #### [address] [address] Potassium [Moles/Vol] 4.2 mmol/L Normal 3.3-5.1 [facility] Comment on above: Order Comment: Relea se to patient->Automatic Is this specimen being sent to an external lab?->No [id number]&Blood^\S\^Venous&Venous Performed By: #### C MP #### [address] [address] Protein [Mass/Vol] 8.2 g/dL Normal 5.9-8.4 [facility] Comment on above: Order Comment: Relea se to patient->Automatic Is this specimen being sent to an external lab?->No [id number]&Blood^\S\^Venous&Venous Performed By: #### C MP #### [place] [address] Sodium [Moles/Vol] 139 mmol/L Normal 133-145 [facility] Comment on above: Order Comment: Relea se to patient->Automatic Is this specimen being sent to an external lab?->No [id number]&Blood^\S\^Venous&Venous Performed By: #### C MP #### [place] [address] Urea nitrogen [Mass/Vol] 13 mg/dL Normal 4-19 [facility] Comment on above: Order Comment: Relea se to patient->Automatic Is this specimen being sent to an external lab?->No [id number]&Blood^\S\^Venous&Venous Performed By: #### C MP #### [place] [address] Complete Blood Counton 09-12 Differential Complete Automated Normal [facility] Comment on above: Order Comment: Relea se to patient->Automatic Is this specimen being sent to an external lab?->No [id number]&Blood^\S\^Venous&Venous Performed By: #### C BC #### [address] [address] Basophils/100 WBC (Bld) 0.90 % Normal 0.00-1.00 [facility] Comment on above: Order Comment: Relea se to patient->Automatic Is this specimen being sent to an external lab?->[place] [id number]&Blood^\S\^Venous&Venous Performed By: #### C BC #### [address] [address] Eosinophils/100 WBC (Bld) 1.80 % Normal 0.00-3.00 [facility] Comment on above: Order Comment: Relea se to patient->Automatic Is this specimen being sent to an external lab?->No [id number]&Blood^\S\^Venous&Venous Performed By: #### C BC #### [place] [address] Erythrocyte distribution width (RBC) [Ratio] 12.8 % Normal 0.0-14.4 [facility] Comment on above: Order Comment: Relea se to patient->Automatic Is this specimen being sent to an external lab?->No [address]&Blood^\S\^Venous&Venous Performed By: #### C BC #### [address] [address] Hematocrit (Bld) [Volume fraction] 44.5 % Normal 37.0-46.0 [facility] Comment on above: Order Comment: Relea se to patient->Automatic Is this specimen being sent to an external lab?->[place] [address]&Blood^\S\^Venous&Venous Performed By: #### C BC #### [address] [address] Hemoglobin (Bld) [Mass/Vol] 15.1 g/dL High 12.0-15.0 [facility] Comment on above: Order Comment: Relea se to patient->Automatic Is this specimen being sent to an external lab?->No 15596&Blood^\S\^Venous&Venous Performed By: #### C BC #### [address] [id number] Immature granulocytes/100 WBC (Bld) 0.20 % Normal [facility] Comment on above: Order Comment: Relea se to patient->Automatic Is this specimen being sent to an external lab?->No [id number]&Blood^\S\^Venous&Venous Result Comment: Evette ture Granulocyte Percent includes promyelocytes, myelocytes, and metamyelocytes. IG% > 1.0 indicates a left shift is present. With automated differentials, bands are included in the neutrophil count and not in the Immature Granulocyte Percent. Performed By: #### C BC #### [place] [address] Lymphocytes/100 WBC (Bld) 50.6 % High 25.0-45.0 [facility] Comment on above: Order Comment: Relea se to patient->Automatic Is this specimen being sent to an external lab?->[place] [address]&Blood^\S\^Venous&Venous Performed By: #### C BC #### [place] [address] MCH (RBC) [Entitic mass] 29.8 pg Normal 25.0-35.0 [facility] Comment on above: Order Comment: Relea se to patient->Automatic Is this specimen being sent to an external lab?->No [address]37&Blood^\S\^Venous&Venous Performed By: #### C BC #### [address] [address] MCHC 33.9 % Normal 31.0-37.0 [facility] Comment on above: Order Comment: Relea se to patient->Automatic Is this specimen being sent to an external lab?->[place] [id number]&Blood^\S\^Venous&Venous Performed By: #### C BC #### [address] [address] MCV (RBC) [Entitic vol] 87.8 fL Normal 78.0-96.0 [facility] Comment on above: Order Comment: Relea se to patient->Automatic Is this specimen being sent to an external lab?->No 38638&Blood^\S\^Venous&Venous Performed By: #### C BC #### [address] [address] Monocytes/100 WBC (Bld) 7.90 % High 3.00-6.00 [facility] Comment on above: Order Comment: Relea se to patient->Automatic Is this specimen being sent to an external lab?->[place] [address]&Blood^\S\^Venous&Venous Performed By: #### C BC #### [address] [address] Neutrophils (Bld) [#/Vol] 1.7 10*3/uL Low 2.0-7.2 [facility] Comment on above: Order Comment: Relea se to patient->Automatic Is this specimen being [place] an [place]?->[place] [address]&Blood^\S\^Venous&Venous Performed By: #### C BC #### [address] [address] Neutrophils/100 WBC (Bld) 38.6 % Normal 34.0-64.0 [facility] Comment on above: Order Comment: Relea se to patient->Automatic Is this specimen being sent to an external lab?->[place] [address]&Blood^\S\^Venous&Venous Performed By: #### C BC #### [address] [address] Nucleated RBC/100 WBC (Bld) [Ratio] 0.0 % Normal -1.0-0.0 [facility] Comment on above: Order Comment: Relea se to patient->Automatic Is this specimen being [place] an [place] [id number]&Blood^\S\^Venous&Venous Performed By: #### C BC #### [address] [id number] Platelet mean volume (Bld) [Entitic vol] 11.3 fL Normal [facility] Comment on above: Order Comment: Relea se to patient->Automatic Is this specimen being sent to an external lab?->[place] [address]&Blood^\S\^Venous&Venous Result Comment: MPV is platelet range and age dependent Performed By: #### C BC #### [place] [address] Platelets (Bld) [#/Vol] 212 10*3/uL Normal 150-450 [facility] Comment on above: Order Comment: Relea se to patient->Automatic Is this specimen being sent to an external lab?->[place] [address]&Blood^\S\^Venous&Venous Performed By: #### C BC #### [place] [address] RBC 5.07 10E12/L High 4.10-4.80 [facility] Comment on above: Order Comment: Relea se to patient->Automatic Is this specimen being sent to an external lab?->[place] [address]&Blood^\S\^Venous&Venous Performed By: #### C BC #### [place] [address] WBC (Bld) [#/Vol] 4.4 10*3/uL Low 4.5-13.0 [facility] Comment on above: Order Comment: Relea se to patient->Automatic Is this specimen being sent to an external lab?->[place] [address]&Blood^\S\^Venous&Venous Performed By: #### C BC #### [place] [address] ESRon 09-12-2020 ESR Sed Rate 6 mm Normal [facility] Comment on above: Order Comment: Relea se to patient->Automatic Is this specimen being sent to an external lab?->No [address]86[address]&Blood^\S\^Venous&Venous Performed By: #### S RATE #### [facility] [address] [place] [address] Interpretation ----- Normal [facility] Comment on above: Order Comment: Relea se to patient->Automatic Is this specimen being sent to an external lab?->[place] [address]&Blood^\S\^Venous&Venous Result Comment: Male Female Child 0-13 Child 0-13 Adult 0- 9 Adult 0-20 Performed By: #### S RATE #### [address] [address] Lipaseon 09-12-2020 Lipase [Catalytic activity/Vol] 27 U/L Normal 16-63 [facility] Comment on above: Order Comment: Relea se to patient->Automatic Is this specimen being sent to an external lab?->[place] [address]&Blood^\S\^Venous&Venous Performed By: #### L IPAS #### [address] [address] Progress Noteon 09-12-2020 Education And Training Manager Authentication Interface Message Text Patient ID: Maykel Villar is a 20 y.o. female. Her chief complaint(s) include: Abdominal Pain (off an on x 2 months) Assessment 1. Generalized abdominal pain 2. Nausea Plan Maykel was seen today for abdominal pain. Diagnoses and all orders for this visit: Generalized abdominal pain - Venipuncture - Comprehensive metabolic panel - Complete Blood Count - Immunoglobulin A - Transglutaminase IgA - C-reactive protein - ESR - Lipase - POCT urine HCG Nausea - Venipuncture - Comprehensive metabolic panel - Complete Blood Count - Immunoglobulin A - Transglutaminase IgA - C-reactive protein - ESR - Lipase - POCT urine HCG Return in about 1 month (around 10/13/2020) for abdominal pain follow up. Will get labs to assess possible etiologies for her abdominal pain and nausea. Urine hcg negative. Will continue the pepcid to see if symptoms improve (take every day for the next month). Recommended keeping abdominal pain diary to look for possible patterns or clues to etiology. If no clear etiology with labs, etc, may need imaging. Subjective HPI Comments: Feeling sick to her stomach whenever she eats over the past few weeks to a month, worse over the past week. No vomiting. Sometimes feels like has to stool right after eating, which helps some. Worse with eating a full meal than smaller amounts. Sometimes has stomach pain with eating bigger amounts. Pain is mid abdomen, sometimes upper abdomen. Currently on period. Sometimes gets a crampy pain. Has tried taking lactaid with dairy- helped a little. No recent illness. Stooling normally, 1-2 times per day. Normal urination. No pain with urination. Periods are normal. Started an OCP 2 months ago. No concern for . Strong family history of gallbladder out. No other famhx GI problems. Is getting some reflux/heartburn, about once a week. Tried pepcid and helped. She is accompanied by her mother. Independent history obtained from mother. Abdominal Pain The location of the pain is in the periumbilical area and upper abdomen. Associated symptoms include nausea. Associated symptoms do not include fever, fatigue, decreased appetite, pallor, rash, headaches, respiratory complaint, diarrhea, vomiting, dysuria, urinary changes and vaginal discharge. Primary Care Review of Systems Objective Vital Signs 09/12/20 0859 Temp: 36.9 C (98.4 F) TempSrc: Temporal Weight: 70.4 kg There is no height or weight on file to calculate BMI. Physical Exam Constitutional: She appears well. She is active. No distress. HENT: Head: Atraumatic. Ears: Left Ear: Tympanic membrane normal. Nose: No nasal discharge. Mouth/Throat: Mucous membranes are moist. No pharynx erythema. Eyes: Conjunctivae are normal. Neck: Neck supple. Cardiovascular: Normal rate and regular rhythm. Heart murmur not heard. Pulmonary/Chest: Effort normal and breath sounds normal. There is normal air entry. No respiratory distress. She has no wheezes. She has no rhonchi. She has no rales. Abdominal: Soft. There is no abdominal tenderness. There is no rebound and no guarding. Musculoskeletal: No pain, swelling, or limited range of motion at any joint. Cervical back: Normal range of motion and neck supple. General: No tenderness. Neurological: She is alert. She exhibits normal muscle tone. Skin: Capillary refill takes less than 3 seconds. Skin is warm. Skin is not pale. Findings: No rash. Vitals reviewed: Temperature 36.9 C (98.4 F), temperature source Temporal, weight 70.4 kg, last menstrual period 09/11/2020. Last Result POCT urine HCG Collection Time: 09/12/20 9:53 AM Result Value Ref Range hCG Urine POCT Negative Negative Control Line *Present Clear Background *Present Lot Number [id number] Normal [facility] Progress Noteon 08-03-2020 Education And Training Manager Authentication Interface Message Text Patient ID: Maykel Villar is a 20 y.o. female. Her chief complaint(s) include: Pharyngitis and Enlarged Lymph Nodes Assessment 1. Acute pharyngitis, unspecified etiology Plan Maykel was seen today for pharyngitis and enlarged lymph nodes. Diagnoses and all orders for this visit: Acute pharyngitis, unspecified etiology - POCT mononucleosis antibodies (Monospot) - POCT rapid strep A antigen - Strep culture Return if symptoms worsen or fail to improve. Starr negative; will send strep for culture. Discussed viral illness. Discussed expected course of viral illness. Rest, fluids, cool mist at bedside, honey (1 teaspoon three times a day) for cough if over 1 year old, nasal saline and suction as needed. May use Motrin or tylenol for pain or fever. Return to office if fever last longer than 5 days, symptoms worsen, symptoms last longer than 2 weeks. Call with questions or concerns. Subjective HPI Comments: Here today due to a very sore throat. Yesterday had fever, body aches and sore throat. Tonsils are huge today. Strep and covid negative yesterday. Not tested for mono. Has had a little bit of a scratchy sore throat for about a week but it worsened on . She is accompanied by her mother. Independent history obtained from mother. Pharyngitis The onset has been acute. The duration has been 3 days. The course is gradually worsening. Aggravated by: swallowing. Symptoms are relieved by nothing. The patient's symptoms have included chills, fatigue, a fever, headaches (on and off; ibuprofen helped some), congestion, rhinorrhea (clear), swollen lymph nodes (neck), cough (wet at times; dry at times) and muscle aches (yesterday). The patient's symptoms have included no decreased appetite, no decreased fluid intake, no eye redness, no sneezing, no chest pain, no difficulty breathing, no shortness of breath, no nausea, no vomiting, no diarrhea, no decreased urination and no rash. The patient has had a maximum temperature of 101.4 degrees. The temperature was taken orally. The patient has been exposed to no sick contacts. The patient's home management has included ibuprofen, decongestants and anti-histamines. Review of Systems Heme/Lymph: Positive for adenopathy. Objective Vital Signs 08/03/20 1121 Temp: 36.8 C (98.3 F) TempSrc: Temporal Weight: 72.2 kg There is no height or weight on file to calculate BMI. Physical Exam Constitutional: She appears well. She is active. No distress. HENT: Head: Atraumatic. Ears: Right Ear: Tympanic membrane and external ear normal. Left Ear: Tympanic membrane and external ear normal. Nose: Nasal discharge (scant clear; erythematous; edematous) present. Mouth/Throat: Mucous membranes are moist. Pharynx erythema present. Tonsils are 3+ on the right. Tonsils are 3+ on the left. Eyes: Conjunctivae are normal. Right eyelid exhibits no discharge. Left eyelid exhibits no discharge. Right conjunctiva is not injected. Left conjunctiva is not injected. Neck: Neck supple. Cardiovascular: Normal rate, regular rhythm, S1 normal and S2 normal. Heart murmur not heard. Pulmonary/Chest: Breath sounds normal. There is normal air entry. Genitourinary: Did not examine. Musculoskeletal: Cervical back: Normal range of motion and neck supple. Lymphadenopathy: Right anterior (small ; non tender mobile) cervical adenopathy present. No right posterior cervical adenopathy present. Left anterior (small non tender mobile) cervical adenopathy present. No left posterior cervical adenopathy present. Neurological: She is alert. Skin: Skin is warm. Findings: No rash. Vitals reviewed: Temperature 36.8 C (98.3 F), temperature source Temporal, weight 72.2 kg, last menstrual period 07/26/2020. Last Result POCT rapid strep A antigen Collection Time: 08/03/20 11:58 AM Result Value Ref Range Strep A Antigen None Detected None Detected Yellow Solution *Present Red Control Line *Present Clear Background *Present Lot Number [id number] POCT mononucleosis antibodies (Monospot) Collection Time: 08/03/20 11:57 AM Result Value Ref Range Monospot (Heterophile Antobodies) Negative Negative Red Control Line *Present Clear Background *Present Within Expiration *Yes Lot Number [id number] Normal [facility] Strep Cultureon 08-03-2020 Strep Culture Is this specimen being sent to an external lab?->No Release to patient->Automatic [id number]&Throat swab^^^Throat swab&Throat swab Strep Culture: Beta hemolytic Strep Group A Source: THRSW Collected: 08/03/20 11:58 Site: Throat swab Received : 08/03/20 17:13 Strep Culture FINAL 08/05/20 10:06 Beta hemolytic Strep Group A Normal [facility] Comment on above: Performed By: #### S TREP #### [address] [address] Clinical Summary: HMSPatient IDon 09-24-2017 OOP Invalid Interpretation Code [facility] Work Phone: Clinical Summary: Scanned RO S Summaryon 09-24-2017 endocrine ROS Denies Invalid Interpretation Code [facility] Work Phone: genitourinary review of systems, E&M Denies Invalid Interpretation Code [facility] Work Phone: Lymphocytes Denies Invalid Interpretation Code [facility] Work Phone: ROS cardiovascular E&M Denies Invalid Interpretation Code [facility] Work Phone: ROS ENT E&M Denies Invalid Interpretation Code [facility] Work Phone: ROS gastrointestinal E&M Denies Invalid Interpretation Code [facility] Work Phone: ROS general E&M Denies Invalid Interpretation Code [facility] Work Phone: ROS Musculoskeletal comments Pain Invalid Interpretation Code [facility] Work Phone: ROS musculoskeletal E&M Complains Invalid Interpretation Code [facility] Work Phone: ROS neurological E&M Denies Invalid Interpretation Code [facility] Work Phone: ROS psychiatric E&M Denies Invalid Interpretation Code [facility] Work Phone: ROS pulmonary E&M Denies Invalid Interpretation Code [facility] Work Phone: ROS skin E&M Denies Invalid Interpretation Code [facility] Work Phone: Office Visit: New - 1st visi t with practice, Rm: 34on 09-24-2017 NEGATED: Highlighted rowDocumentation of current medications (procedure) Done Invalid Interpretation Code [facility] Work Phone: Clinical Lists Update: Prelo ad Extendedon 09-23-2017 Tobacco smoking status NHIS Tobacco smoking status NHIS Invalid Interpretation Code [facility] Work Phone: Clinical Summary: Scanned Hi story Summaryon 09-23-2017 Data entered by patient exercise frequency 4 days per week Invalid Interpretation Code [facility] Work Phone: Data entered by patient exercise type sports Invalid Interpretation Code [facility] Work Phone: data entered by patient, alcohol (ethanol or ETOH) use No Invalid Interpretation Code [facility] Work Phone: Data entered by patient, allergy list I don't have any Drug AllergiesI don't have any Environmental AllergiesI don't have any Food Allergies Invalid Interpretation Code [facility] Work Phone: data entered by patient, drug (of abuse) use No Invalid Interpretation Code [facility] Work Phone: data entered by patient, exercise history Yes Invalid Interpretation Code [facility] Work Phone: data entered by patient, father's medical history Diabetes - insulin dependent Invalid Interpretation Code [facility] Work Phone: Data entered by patient, medication list multivitamin-Unknown [id number] per dayvitamin [id number] per day Invalid Interpretation Code [facility] Work Phone: data entered by patient, past medical history Fractures Invalid Interpretation Code [facility] Work Phone: data entered by patient, social history, current smoker never smoker Invalid Interpretation Code [facility] Work Phone: data entered by patient, social history, marital status single Invalid Interpretation Code [facility] Work Phone: Denies Surgical History I have not had any surgeries Invalid Interpretation Code [facility] Work Phone: Exercise vein comment Plays volleyball and basketball Invalid Interpretation Code [facility] Work Phone: father of patient is alive or Alive Invalid Interpretation Code [facility] Work Phone: Housing Type: apartment, house, prison, trailer, none house Invalid Interpretation Code [facility] Work Phone: housing unit size (asthma environmental history, housing) (from single family to don't know) 2 floors Invalid Interpretation Code [facility] Work Phone: medical history of patient's brother(s) Difficulty with anesthesia Invalid Interpretation Code [facility] Work Phone: mother of patient is alive or Alive Invalid Interpretation Code [facility] Work Phone: Number of dependent children No Invalid Interpretation Code [facility] Work Phone: sister of patient(s) alive or I do not have any sisters. My sister(s)' health history is unknown. Invalid Interpretation Code [facility] Work Phone: Microbiology: Culture, R/O S trep Aon 01-01-2017 GE use only - for [employer] import when terms are not otherwise specified . Invalid Interpretation Code [facility] Work Phone: Chart Maintenanceon 12-31-19 17 Rapid strep test Negative Invalid Interpretation Code [facility] Work Phone: Office Visit: UC: URI, Phary ngitison 12-30-2016 Documentation of current medications (procedure) Done Invalid Interpretation Code [facility] Work Phone: Fall risk assessment No Invalid Interpretation Code [facility] Work Phone: Tobacco use CPHS Never smoker Invalid Interpretation Code [facility] Work Phone: Office Visit: UC: R earache, stuffy nose, sore throaton 09-01-2016 Documentation of current medications (procedure) Done Invalid Interpretation Code [facility] Work Phone: Fall risk assessment No Invalid Interpretation Code [facility] Work Phone: Protein mass conc Done [facility] Work Phone: Tobacco smoking status NHIS Never smoker [facility] Work Phone: Tobacco use HS Never smoker Invalid Interpretation Code [facility] Work Phone: Vital Signs Date Time Vital Sign Value Performing Clinician Facility 12-19-2024 14:35-0400 Body height 180.[address] Gael Flores MD Work Phone: [facility] 12-19-2024 14:32-0400 Body mass index (BMI) [Ratio] 30.7 kg/m2 Dr. Gael Flores MD Work Phone: [facility] 12-19-2024 14:32-0400 Body weight 99.[address] Gael Flores MD Work Phone: [facility] 12-19-2024 14:32-0400 Diastolic blood pressure 90 mm[Hg] Dr. Gael Flores MD Work Phone: [facility] 12-19-2024 14:32-0400 Systolic blood pressure 135 mm[Hg] Dr. Gael Flores MD Work Phone: [facility] 07-20-2024 08:21-0400 Body height 180.[address] Gael Flores MD Work Phone: [facility] 07-20-2024 08:21-0400 Body temperature 97 [degF] Dr. Gael Flores MD Work Phone: [facility] 07-20-2024 08:21-0400 Diastolic blood pressure 84 mm[Hg] Dr. Gael Flores MD Work Phone: [facility] 07-20-2024 08:21-0400 Heart rate 109 /min Dr. Gael Flores MD Work Phone: [facility] 07-20-2024 08:21-0400 Respiratory rate 18 /min Dr. Gael Flores MD Work Phone: [facility] 07-20-2024 08:21-0400 SaO2% (BldA) [Mass fraction] 98 % Dr. Gael Flores MD Work Phone: [facility] 07-20-2024 08:21-0400 Systolic blood pressure 138 mm[Hg] Dr. Gael Flores MD Work Phone: [facility] 07-17-2024 08:55-0400 Body mass index (BMI) [Ratio] 27.8 kg/m2 Dr. Gael Flores MD Work Phone: [facility] 07-17-2024 08:55-0400 Body weight 90.[address] Gael Flores MD Work Phone: [facility] 06-27-2024 08:35-0400 Body mass index (BMI) [Ratio] 28.3 kg/m2 Dr. Gael Flores MD Work Phone: [facility] 06-27-2024 08:35-0400 Body weight 92.[address] Gael Flores MD Work Phone: [facility] 05-04-2024 08:30-0500 Body mass index (BMI) [Ratio] 27.4 kg/m2 Dr. Gael Flores MD Work Phone: [facility] 05-04-2024 08:30-0500 Body temperature 97 [degF] Dr. Gael Flores MD Work Phone: [facility] 05-04-2024 08:30-0500 Body weight 89.[address] Gael Flores MD Work Phone: [facility] 05-04-2024 08:30-0500 Diastolic blood pressure 80 mm[Hg] Dr. Gael Flores MD Work Phone: [facility] 05-04-2024 08:30-0500 Heart rate 112 /min Dr. Gael Flores MD Work Phone: [facility] 05-04-2024 08:30-0500 Respiratory rate 18 /min Dr. Gael Flores MD Work Phone: [facility] 05-04-2024 08:30-0500 SaO2% (BldA) [Mass fraction] 97 % Dr. Gael Flores MD Work Phone: [facility] 05-04-2024 08:30-0500 Systolic blood pressure 110 mm[Hg] Dr. Gael Flores MD Work Phone: [facility] 03-28-2024 14:54-0500 Body mass index (BMI) [Ratio] 27.7 kg/m2 Dr. Gael Flores MD Work Phone: [facility] 03-28-2024 14:54-0500 Body temperature 98.2 [degF] Dr. Gael Flores MD Work Phone: [facility] 03-28-2024 14:54-0500 Body weight 90.[address] Gael Flores MD Work Phone: [facility] 03-28-2024 14:54-0500 Diastolic blood pressure 80 mm[Hg] Dr. Gael Flores MD Work Phone: [facility] 03-28-2024 14:54-0500 Heart rate 112 /min Dr. Gael Flores MD Work Phone: [facility] 03-28-2024 14:54-0500 Respiratory rate 14 /min Dr. Gael Flores MD Work Phone: [facility] 03-28-2024 14:54-0500 Systolic blood pressure 122 mm[Hg] Dr. Gael Flores MD Work Phone: [facility] 02-28-2024 14:25-0500 Body height 180.3 cm Chayito Furubayashi FOREST FIRE CONTROL OFFICER.[employer]CH[employer] ARCHITECT Work Phone: [facility] 02-28-2024 14:25-0500 Body mass index (BMI) [Ratio] 26.75 kg/m2 Chayito Furubayashi FOREST FIRE CONTROL OFFICER.[employer] EXCHANGE ARCHITECT Work Phone: [facility] 02-28-2024 14:25-0500 Body weight 87 kg Chayito Furubayashi FOREST FIRE CONTROL OFFICER.[employer] EXCHANGE ARCHITECT Work Phone: [facility] 02-28-2024 14:25-0500 SaO2% (BldA) [Mass fraction] 100 % Chayito Furubayashi FOREST FIRE CONTROL OFFICER.[employer] EXCHANGE ARCHITECT Work Phone: [facility] 12-01-2021 22:20-0400 Body height 180.[address] Georgia Suazo Work Phone: [facility] Work Phone: 12-01-2021 22:20-0400 Body mass index (BMI) [Percentile] Per age and sex 39.8 % Dr. Georgia Suazo Work Phone: [facility] Work Phone: 12-01-2021 22:20-0400 Body mass index (BMI) [Ratio] 20.9 kg/m2 Dr. Georgia Suazo Work Phone: [facility] Work Phone: 12-01-2021 22:20-0400 Body temperature 98.9 [degF] Dr. Georgia Suazo Work Phone: [facility] Work Phone: 12-01-2021 22:20-0400 Body weight 68.[address] Georgia Suazo Work Phone: [facility] Work Phone: 12-01-2021 22:20-0400 Diastolic blood pressure 109 mm[Hg] Dr. Georgia Suazo Work Phone: [facility] Work Phone: 12-01-2021 22:20-0400 Heart rate 112 /min Dr. Georgia Suazo Work Phone: [facility] Work Phone: 12-01-2021 22:20-0400 Respiratory rate 18 /min Dr. Georgia Sauzo Work Phone: [facility] Work Phone: 12-01-2021 22:20-0400 SaO2% (BldA) [Mass fraction] 100 % Dr. Georgia Suazo Work Phone: [facility] Work Phone: 12-01-2021 22:20-0400 Systolic blood pressure 155 mm[Hg] Dr. Georgia Suazo Work Phone: [facility] Work Phone: 09-17-2021 10:12-0400 Body temperature 98.1 [degF] Dr. Georgia Suazo Work Phone: [facility] Work Phone: 09-17-2021 10:12-0400 Diastolic blood pressure 76 mm[Hg] Dr. Georgia Suazo Work Phone: [facility] Work Phone: 09-17-2021 10:12-0400 Heart rate 146 /min Dr. Georgia Suazo Work Phone: [facility] Work Phone: 09-17-2021 10:12-0400 Respiratory rate 14 /min Dr. Georgia Suazo Work Phone: [facility] Work Phone: 09-17-2021 10:12-0400 SaO2% (BldA) [Mass fraction] 99 % Dr. Georgia Suazo Work Phone: [facility] Work Phone: 09-17-2021 10:12-0400 Systolic blood pressure 122 mm[Hg] Dr. Georgia Suazo Work Phone: [facility] Work Phone: 08-19-2021 14:56-0400 Body temperature 97.7 [degF] Dr. Georgia Suazo Work Phone: [facility] Work Phone: 08-19-2021 14:56-0400 Diastolic blood pressure 90 mm[Hg] Dr. Georgia Suazo Work Phone: [facility] Work Phone: 08-19-2021 14:56-0400 Heart rate 121 /min Dr. Georgia Suazo Work Phone: [facility] Work Phone: 08-19-2021 14:56-0400 Respiratory rate 15 /min Dr. Georgia Suazo Work Phone: [facility] Work Phone: 08-19-2021 14:56-0400 SaO2% (BldA) [Mass fraction] 99 % Dr. Georgia Suazo Work Phone: [facility] Work Phone: 08-19-2021 14:56-0400 Systolic blood pressure 128 mm[Hg] Dr. Georgia Suazo Work Phone: [facility] Work Phone: 12-30-2016 09:08-0400 BMI (Body Mass Index) 22 kg/m2 Jaylan MOORE [facility] Work Phone: 12-30-2016 09:08-0400 Body Temperature 98 [degF] Jaylan MOORE [facility] Work Phone: 12-30-2016 09:08-0400 BP Diastolic 76 mm[Hg] Jaylan MOORE [facility] Work Phone: 12-30-2016 09:08-0400 BP Systolic 118 mm[Hg] Jaylan MOORE [facility] Work Phone: 12-30-2016 09:08-0400 Height 175.26 cm Jaylan MOORE [facility] Work Phone: 12-30-2016 09:08-0400 Pulse (Heart Rate) 89 /min Jaylan MOORE [facility] Work Phone: 12-30-2016 09:08-0400 Respiratory Rate 15 /min Jaylan MOORE [facility] Work Phone: 12-30-2016 09:08-0400 Weight 67.59 kg Jaylan MOORE [facility] Work Phone: 09-01-2016 08:08-0400 BMI (Body Mass Index) 21.09 kg/m2 Neelima Romero LPN [facility] Work Phone: 09-01-2016 08:08-0400 Body Temperature 98.6 [degF] Neelima Romero LPN [facility] Work Phone: 09-01-2016 08:08-0400 BP Diastolic 82 mm[Hg] Neelima Romero LPN [facility] Work Phone: 09-01-2016 08:08-0400 BP Systolic 122 mm[Hg] Neelima Romero LPN [facility] Work Phone: 09-01-2016 08:08-0400 Height 175.26 cm Neelima Romero LPN [facility] Work Phone: 09-01-2016 08:08-0400 Pulse (Heart Rate) 80 /min Neelima Romero LPN [facility] Work Phone: 09-01-2016 08:08-0400 Pulse Oximetry 99 % Neelima Romero LPN [facility] Work Phone: 09-01-2016 08:08-0400 Respiratory Rate 15 /min Neelima Romero LPN [facility] Work Phone: 09-01-2016 08:08-0400 Weight 64.77 kg Neelima Romero LPN [facility] Work Phone: NEGATED: Highlighted [id number] 08:29-0400 BMI (Body Mass Index) 21.98 kg/m2 Fallonmegan Nobleestine SHOE SHANKER [facility] Work Phone: NEGATED: Highlighted [id number] 08:29-0400 BP Diastolic 89 mm[Hg] Fallon Winklestine SHOE SHANKER [facility] Work Phone: NEGATED: Highlighted [id number] 08:29-0400 BP Systolic 124 mm[Hg] Fallon Winklestine SHOE SHANKER [facility] Work Phone: NEGATED: Highlighted [id number] 08:29-0400 Height 180.34 cm Fallon Winklestine SHOE SHANKER [facility] Work Phone: NEGATED: Highlighted [id number] 08:29-0400 Height 180 cm Fallon Winklestine SHOE SHANKER [facility] Work Phone: NEGATED: Highlighted [id number] 08:290400 Pulse (Heart Rate) 82 /min Fallon Newberry LPN [facility] Work Phone: NEGATED: Highlighted [id number] 08:290 Weight 71.22 kg Fallon Newberry LPN [facility] Work Phone: NEGATED: Highlighted [id number] 08: Weight 71 kg Fallon Newberry SHOE SHANKER [facility] Work Phone: Encounters Encounter Date Encounter Type Care Provider Facility Start: 12-19-2024 End: 12-19-2024 ambulatory Gael Flores Facility:[facility] Start: 12-19-2024 End: 12-19-[address] Jyotsna Oneal MD [facility] Work Phone: Start: 11-20-2024 Registered Rec[employer]ring EM[employer]OYEE [employer] -Employee Health Start: 11-20-2024 ambulatory Gael Flores Facility :[facility] Start: 10-09-2024 End: 10-19-2024 Telephone encounter Chayito Paige APRN.CNP Work Phone: Neurology Comment on above: Orders (See note); C are Coordinator - Other; Insurance Authorization Start: 10-06-2024 End: 10-06-2024 Telephone encounter Chayito Paige APRN.CNP Work Phone: [facility] Comment on above: Heart Problem Start: 07-20-2024 End: 07-20-[address] Gael Flores MD [facility] Work Phone: Start: 07-20-2024 End: 07-20-[address] Gael Flores MD Work Phone: [facility] Work Phone: Start: 07-20-2024 End: 07-20-2024 ambulatory Gael Miltonlay Facility:[facility] Start: 07-17-2024 End: 07-17-2024 Patient encounter procedure Svetlana Rao PATIENT [facility] Work Phone: Start: 07-17-2024 End: 07-17-2024 ambulatory Svetlana Rao Facility:[facility] Start: 06-27-2024 End: 06-27-2024 Patient encounter procedure Svetlana Rao PATIENT [facility] Work Phone: Start: 06-27-2024 End: 06-27-2024 ambulatory Svetlana Rao Facility:[facility] Start: 05-04-2024 End: 05-04-[address] Gael Flores MD [facility] Work Phone: Start: 05-04-2024 End: 05-04-2024 ambulatory Gael Flores Facility:[facility] Start: 05-04-2024 End: 05-04-2024 ambulatory Gael Miltonlay Facility:[facility] Start: 03-28-2024 End: 03-28-[address] Gael Flores MD [facility] Work Phone: Start: 03-28-2024 End: 03-28-2024 ambulatory Gael Flores Facility:[facility] Start: 03-17-2024 End: 03-17-2024 Telephone encounter Chayito Paige APRN.[employer] ARCHITECT Work Phone: Neurology Comment on above: Contract Manager - O ther; Results; Patient Update Start: 02-28-2024 End: 02-28-2024 ambulatory CHAYITO PAIGE Facility:[facility] Start: 02-28-2024 End: 02-28-2024 Patient encounter procedure Chayito Paige FOREST FIRE CONTROL OFFICER.[employer] EXCH[employer] ARCHITECT Work Phone: Neurology Comment on above: POTS (postural ortho static tachycardia syndrome) (Primary Dx); Malaise and fatigue; Transient loss of consciousness Start: 02-22-2024 End: 02-22-2024 ambulatory Gael Mark Facility:[facility] Start: 02-15-2024 ambulatory Gael Mukwonago Facility :[facility] Start: 02-15-2024 End: 02-15-2024 ambulatory Gael Miltonlay Facility:[facility] Start: 01-26-2024 End: 01-26-2024 ambulatory Gael Flores Facility:[facility] Start: 01-26-2024 End: 01-26-2024 ambulatory Gael Mukwonago Facility:[facility] Start: 01-20-2024 End: 01-20-2024 Emergency department patient visit Francisco Lugo Facility:[facility] Start: 01-17-2024 End: 01-17-2024 ambulatory Jyotsna Oneal Facility:[facility] Start: 01-17-2024 End: 01-17-2024 ambulatory Jyotsna Kimmy Facility:[facility] Start: 12-22-2023 End: 12-23-2023 Emergency department patient visit Narinder Barrera Facility:[facility] Start: 12-01-2021 End: 12-02-2021 Emergency department patient visit Dr. Georgia Suazo Work Phone: [facility] Start: 09-17-2021 End: 09-17-[address] Georgia Suazo Work Phone: [facility] Start: 08-19-2021 End: 08-19-[address] Georgia Suazo Work Phone: [facility] Start: 11-20-2020 End: 11-21-2020 ambulatory Kan [id number] Adarsh [id number] Facility:[facility] Start: 09-24-2017 End: 09-24-2017 Patient encounter procedure Viral Escamilla MD Work Phone: [facility] [place] [facility] Work Phone: Procedures Date Procedure Procedure Detail Performing Clinician Start: 07-20-2024 SARS-CoV-2, Influenz a & RSV (PCR) Dr. Gael Flores MD Work Phone: Start: 07-17-2024 X-ray of ankle, thre e or more views Dr. Gael Flores MD Work Phone: Start: 06-27-2024 X-ray of ankle, thre e or more views Dr. Gael Flores MD Work Phone: Start: 05-04-2024 SARS-CoV-2, Influenz a & RSV (PCR) Dr. Gael Flores MD Work Phone: Start: 12-01-2021 CT of abdomen and pe lvis without contrast Dr. Georgia Suazo Work Phone: Start: 09-24-2017 End: 09-24-2017 Adolescent tobacco screening was negative - non user Viral Escamilla MD Work Phone: Start: 12-30-2016 End: 12-30-2016 Rapid strep test Jaylan MOORE Work Phone: Plan of Treatment Date Care Activity Detail Author Start: 12-19-2024 Choriogonadotropin ( test) [Presence] in Serum or Plasma [facility] Start: 12-19-2024 Estradiol (E2) [Mass/volume] in Serum or Plasma [facility] Start: 12-19-2024 Follicle stimulating hormone measurement [facility] Start: 12-19-2024 [facility] Start: 12-18-2024 Influenza vaccination Influenza Vaccine (#1) [facility] Start: 12-26-2023 Urine microalbumin profile DTaP,Tdap,Td Vaccine (7 - Td or Tdap) [facility] Start: 12-19-2023 Covid-19 Vaccine ( season) Covid-19 Vaccine ( season) [facility] Start: 2023 Screening for malignant neoplasm of cervix Cervical Cancer Screening [facility] Start: 05-18-2020 Meningococcal B Vaccine (2 of 2 - Bexsero SCDM 2-dose series) Meningococcal B Vaccine (2 of 2 - Bexsero SCDM 2-dose series) [facility] Start: 01-11-2020 Anxiety Screening Anxiety Screening [facility] Start: 01-11-2020 Depression Screening Depression Screening [facility] Start: 01-11-2020 GC (Gonorrhea) Screening () GC (Gonorrhea) Screening () [facility] Start: 01-11-2020 Hepatitis C screening Hepatitis C Screening [facility] Start: 01-11-2020 HIV screening HIV Screening [facility] Start: 01-11-2020 Screening for Chlamydia trachomatis Chlamydia Screening () [facility] Start: 12-14-2019 Meningococcal B Vaccine: Consider Based On Risk (2 of 2 - Risk Bexsero 2-dose series) Meningococcal B Vaccine: Consider Based On Risk (2 of 2 - Risk Bexsero 2-dose series) [facility] Start: 09-24-2017 End: 09-24-2017 Appointment [facility] Work Phone: Start: 09-24-2017 End: 09-24-2017 X-ray exam of knee, 1 or 2 XR KNEE 1-2 VWS-LT [facility] [place] [facility] Work Phone: Start: 2017 HPV Vaccine (1 - 3-dose series) HPV Vaccine (1 - 3-dose series) [facility] Start: 12-30-2016 End: 12-30-2016 Appointment Appointment [facility] Work Phone: Start: 12-30-2016 End: 12-30-2016 Streptococcus.beta-hemolyti c [Presence] in Throat by Organism specific culture *Culture, R/O Strep A Swab [facility] Work Phone: Start: 09-01-2016 End: 09-01-2016 Appointment Appointment [facility] Work Phone: Start: 01-11-2016 Peds To Adult Transition Annual Assessment Peds To Adult Transition Annual Assessment [facility] Start: 2014 Peds To Adult Transition Initial Discussion Peds To Adult Transition Initial Discussion [facility] Mullerian inhibiting substance [Mass/volume] in Serum or Plasma [facility] OUTSIDE VENDOR CARDI AC OUTPATIENT EXTENDED RHYTHM RECORDING (WITHOUT TELEMETRY) OUTSIDE VENDOR CARDIAC OUTPATIENT EXTENDED RHYTHM RECORDING (WITHOUT TELEMETRY) Holter Routine POTS (postural orthostatic tachycardia syndrome) Ordered: 02/28/2024 [facility] Work Phone: Comment on above: Ordered: 02/28/2024 Patient Education ED Flank Pain, Uncertain Cause [facility] Work Phone: Patient referral [facility] Work Phone: [place] [facility] XR Ankle GE 3 Views [facility] Immunizations Immunization Date Immunization Notes Care Provider Fa krish 11-20-2024 tetanus toxoid, redu dee diphtheria toxoid, and acellular pertussis vaccine, adsorbed Dr. Gael Flores MD Work Phone: [facility] 03-03-2024 Covid (Spikevax) Dr. Gale Flores MD Work Phone: [facility] 01-26-2024 influenza, injectabl e, madin noreen canine kidney, preservative free Dr. Gael Flores MD Work Phone: [facility] 01-26-2024 Influenza, injectabl e, Madin [place] Canine Kidney, preservative free, quadrivalent Dr. Gael Flores MD Work Phone: [facility] 01-26-2024 influenza virus vaccine, unspecified formulation Chayito Paige APRN.CNP Work Phone: [facility] 04-07-2022 Covid Moderna Bivale nt Booster Dr. Gael Flores MD Work Phone: [facility] 04-07-2022 influenza, injectabl e, quadrivalent, preservative free Dr. Gael Flores MD Work Phone: [facility] 04-25-2021 influenza, injectabl e, quadrivalent, preservative free Dr. Gael Flores MD Work Phone: [facility] 04-03-2021 Covid (Moderna) Dr. Gael lomeli MD Work Phone: [facility] 08-14-2020 Covid (Moderna) Dr. Gael lomeli MD Work Phone: [facility] 07-17-2020 Covid (Moderna) Dr. Gael lomeli MD Work Phone: [facility] 02-17-2020 Seasonal, quadrivale nt, recombinant, injectable influenza vaccine, preservative free Dr. Gael Flores MD Work Phone: [facility] 11-16-2019 meningococcal B vaccine, fully recombinant Dr. Gael Flores MD Work Phone: [facility] 02-18-2019 influenza, injectabl e, quadrivalent, preservative free Dr. Gael Flores MD Work Phone: [facility] 11-14-2018 meningococcal polysaccharide (groups A, C, Y and W-135) diphtheria toxoid conjugate vaccine (MCV4P) Dr. Gael Flores MD Work Phone: [facility] 11-12-2017 hepatitis A vaccine, pediatric/adolescent dosage, [address] Gael Flores MD Work Phone: [facility] 05-01-2017 influenza, injectabl e, quadrivalent, preservative free Dr. Gael Flores MD Work Phone: [facility] 11-03-2016 hepatitis A vaccine, pediatric/adolescent dosage, [address] Gael Flores MD Work Phone: [facility] 12-25-2013 meningococcal polysaccharide (groups A, C, Y and W-135) diphtheria toxoid conjugate vaccine (MCV4P) Dr. Gael Flores MD Work Phone: [facility] 12-25-2013 tetanus toxoid, redu dee diphtheria toxoid, and acellular pertussis vaccine, adsorbed Dr. Gael Flores MD Work Phone: [facility] 03-17-2013 influenza, injectabl e, quadrivalent, preservative free Dr. Gael Flores MD Work Phone: [facility] 02-12-2012 influenza, injectabl e, quadrivalent, preservative free Dr. Gael Flores MD Work Phone: [facility] 01-09-2011 influenza, injectabl e, quadrivalent, preservative free Dr. Gael Flores MD Work Phone: [facility] 02-06-2010 influenza, injectabl e, quadrivalent, preservative free Dr. Gael Flores MD Work Phone: [facility] 04-23-2009 novel [id number], preservative-free, injectable Dr. Gael Flores MD Work Phone: [facility] 03-21-2009 novel [id number], preservative-free, injectable Dr. Gael Flores MD Work Phone: [facility] 01-15-2009 influenza, injectabl e, quadrivalent, preservative free Dr. Gael Flores MD Work Phone: [facility] 02-10-2008 influenza, injectabl e, quadrivalent, preservative free Dr. Gael Flores MD Work Phone: [facility] 02-08-2007 diphtheria, tetanus toxoids and acellular pertussis vaccine Dr. Gael Flores MD Work Phone: [facility] 02-08-2007 influenza, injectabl e, quadrivalent, preservative free Dr. Gael Flores MD Work Phone: [facility] 02-08-2007 measles, mumps and rubella virus vaccine Dr. Gael Flores MD Work Phone: [facility] 02-08-[address], [address] Gael Flores MD Work Phone: [facility] 02-08-[address] Gael Flores MD Work Phone: [facility] 03-03-2006 influenza, injectabl e, quadrivalent, preservative free Dr. Gael Flores MD Work Phone: [facility] 02-19-2005 influenza, injectabl e, quadrivalent, preservative free Dr. Gael Flores MD Work Phone: [facility] 07-24-2003 diphtheria, tetanus toxoids and acellular pertussis vaccine Dr. Gael Flores MD Work Phone: [facility] 07-24-2003 haemophilus influenz ae type b conjugate and Hepatitis B vaccine Dr. Gael Flores MD Work Phone: [facility] 07-24-[address] Gael Flores MD Work Phone: [facility] 03-12-2003 influenza, injectabl e, quadrivalent, preservative free Dr. Geal Flores MD Work Phone: [facility] 01-19-2003 measles, mumps and rubella virus vaccine Dr. Gael Flores MD Work Phone: [facility] 01-19-2003 poliovirus vaccine, inactivated Dr. Gael Flores MD Work Phone: [facility] 2002 diphtheria, tetanus toxoids and acellular pertussis vaccine Dr. Gael Flores MD Work Phone: [facility] 2002 haemophilus influenz ae type b vaccine, PRP-T conjugate Dr. Gael Flores MD Work Phone: [facility] 2002 pneumococcal conjuga te vaccine, [address] Gael Flores MD Work Phone: [facility] 2002 diphtheria, tetanus toxoids and acellular pertussis vaccine Dr. Gael Flores MD Work Phone: [facility] 2002 haemophilus influenz ae type b vaccine, PRP-T conjugate Dr. Gael Flores MD Work Phone: [facility] 2002 pneumococcal conjuga te vaccine, [address] Gael Flores MD Work Phone: [facility] 2002 poliovirus vaccine, inactivated Dr. Gael Flores MD Work Phone: [facility] 2002 diphtheria, tetanus toxoids and acellular pertussis vaccine Dr. Gael Flores MD Work Phone: [facility] 2002 haemophilus influenz ae type b conjugate and Hepatitis B vaccine Dr. Gael Flores MD Work Phone: [facility] 2002 pneumococcal conjuga te vaccine, [address] Gael Flores MD Work Phone: [facility] 2002 poliovirus vaccine, inactivated Dr. Gael lFores MD Work Phone: [facility] 2002 hepatitis B vaccine, pediatric or pediatric/adolescent dosage Dr. Gael Flores MD Work Phone: [facility] No information available. Fallon Newberry LPN [facility] Work Phone: Payers Date Payer Category Payer Unknown [id number] 2023 Self-pay [id number] 2023 Private Health Insurance [id number] 2023 Private Health Insurance [id number] 2002 Unknown [id number] 2.16.8 [id number] 1959 Unknown [id number] Unknown [id number] 2.16.8 [id number] Unknown [id number] 2.16.8 [id number] Unknown [id number] 2.16.8 40.1.739549.3.579.2.462 Unknown [id number] 2.16.8 40.1.290184.3.579.2.462 Unknown [id number] 2.16.8 40.1.669801.3.579.2.462 Unknown [id number] 2.16.8 40.1.921342.3.579.2.462 Unknown [id number] 2.16.8 40.1.987530.3.579.2.462 Unknown [id number] 2.16.8 40.1.913809.3.579.2.462 Unknown [id number] 2.16.8 40.1.512419.3.579.2.462 Unknown [id number] 2.16.8 40.1.006087.3.579.2.462 Unknown [id number] 2.16.8 40.1.664918.3.579.2.462 Unknown [id number] 2.16.8 40.1.128631.3.579.2.462 Unknown [id number] 2.16.8 40.1.354370.3.579.2.462 Unknown [id number] 2.16.8 40.1.799659.3.579.2.462 Unknown [id number] 2.16.8 40.1.622936.3.579.2.462 Unknown [id number] 2.16.8 40.1.782976.3.579.2.462 Unknown [id number] 2.16.8 40.1.965461.3.579.2.462 Unknown [id number] 2.16.8 40.1.912323.3.579.2.462 Unknown [id number] 2.16.8 40.1.732481.3.579.2.462 Unknown [id number] 2.16.8 40.1.351779.3.579.2.462 Social History Date Type Detail Facility Start: 09-24-2017 End: 09-24-2017 Assertion Unknown if ever smoked [facility] Work Phone: Start: 2000 Sex Assigned At Female W [facility] Start: 02-28-20[address] History of [address] [facility] Start: 02-28-[address] [facility] National Score (1-10 0), lower number is lower risk 47 [facility] Start: 2002 Sex assigned at Not on file C [facility] Start: 01-20-2024 End: 12-19-2024 Tobacco smoking status NHIS Never smoked tobacco (finding) [facility] Start: 07-25-2024 Sex Female (finding) [facility] Clinical Notes 11-13-2020 to 12-19-2024 Note Date & Type Note Facility 12-19-2024 Progress note [facility] 12-19-2024 Progress note Note Date/Time December 19, 2024 2:52pm [facility] [address], [address] [place] [address] OFFICE VISIT Date of Service: 12/19/24 MR#: [id number] Acct: [id number] Name: MAYKEL VILLAR Rep #: [id number] : 2000 Provider: Dr. Juice Oneal MD Age/Sex: 24/F [place] [facility] [place]: Signed Intake Vital Signs 07/20/24 08:21 12/19/24 14:32 12/19/24 14:35 Height 5 ft 11 in 5 ft 11 in 5 ft 11 in Weight: 220 lb 7 oz BMI 30.7 BP 138/84 H 135/90 H Blood Pressure Location Lt brachial Position Sitting Respiration 18 Pulse 109 H Pulse Source Monitor Temp 97.0 F L Pulse Oximetry (%) 98 Oxygen Delivery Method room air Intake Visit Reasons: 3 M NO MENSES NEG PREG TEST CYSTS ON OVARIES Lead Scientist Required: No Is patient in pain?: Yes (pelvic pain, mostly right side) Allergies No Known Allergies Allergy (Verified 12/19/24 14:33) Medications ?Medication ?Instructions ?Recorded ?Confirmed ?Type drospirenone 3 mg-ethinyl 1 tab PO QDAY #28 tabs 01/1612/19/24 Rx estradiol 0.02 mg tablet (Vestura (28)) escitalopram oxalate 10 mg tablet 10 mg PO DAILY #90 t abs 02/11/24 12/19/24 Rx compression socks, medium #2 ea 02/22/24 12/19/24 Rx fluticasone propionate 50 1 spray intranasal QDAY #16 grams 03/28/24 12/19/24 Rx mcg/actuation nasal spray,suspension (Flonase Allergy Relief) sumatriptan succinate 25 mg tablet See Rx Instructions PO .COMPLEX PRN 06/27/24 12/19/24 History (Imitrex) Is last menstrual period known: Yes Last Menstrual Period: 09/18/24 Post menopausal: No : No [facility] Medical History (Updated 12/19/24 @ 14:[address] 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 She reports missing her menstrual periods for several months despite taking multiple negative tests. The patient has been on oral contraceptive pills for approximately 4 to 5 years and has not missed any doses. The patient describes experiencing pelvic pain that resembles the pain she had when she previously had ovarian cysts. The pain is persistent and exacerbates during the time her menstrual period is expected. She also reports dyspareunia, specifically deep pain during and after intercourse. The patient has a history of Postural Orthostatic Tachycardia Syndrome (POTS), which contributes to symptoms such as hot flashes and night sweats. She denies any visual changes, headaches, or breast discharge. The patient notes increased urinary frequency but denies dysuria or hematuria. She is currently taking Lexapro, which has been effective in managing her mood symptoms around her menstrual cycle. The patient experiences white coat syndrome, leading to occasional borderline elevated blood pressure readings in clinical settings, though her home readings are normal. Attestation: Documentation on this patient encounter was supported using ambient scribe technology/ voice AI technology. The patient consented to recording for the purpose of documenting the encounter. Provider reviewed content of the generatednote prior to signature. Female Reproductive History Last Menstrual Period: 09/18/24 History 0 Elective abortions Hx Para Spontaneous abortions Hx # Term Pregnancies Ectopic pregnancies Hx # Pregnancies Multiple births # of living children ROS ROS Narrative - General: Reports hot flashes and night sweats, denies fatigue. - Neurological: Denies headaches or visual changes. - Cardiovascular: Reports increased urinary frequency, denies chest pain or palpitations. - Gastrointestinal: Denies nausea, vomiting, diarrhea, or constipation. - Genitourinary: Reports amenorrhea and dyspareunia, denies dysuria or hematuria. Exam Const General: cooperative, healthy appearing, comfortable, no acute distress and welldeveloped Orientation: alert [facility] Head: normal to inspection and normocephalic Ears: hearing grossly normal bilaterally and external ears normal Nose: external nose normal and nares normal Face and sinus: normal facial exam Neck Neck: normal visual inspection, no lymphadenopathy and trachea midline Thyroid: thyroid normal Resp Effort & Inspection: normal respiratory effort Musc Other: gross motor intact no deficits, full bilateral strength Skin General: no rashes or lesions noted Neuro Motor: muscle tone normal throughout Coding Level of Care Code Off vis,est,level 4 Diagnoses Secondary amenorrhea N91.1 Acute pelvic pain, female R10.2 Assessment and Plan Assessment and Plan (1) Secondary amenorrhea: Status: Acute Comment: day 2 of placebo pills- elizabeth fsh estradiol, amh, and tsh. may be due to prolonged OCP use. (2) Acute pelvic pain, female: Status: Acute Comment: and dyspareunia- pelvic US ordered. history of ovarian cysts Orders: Orders Antimullerian Hormone, Serum Today N91.1 - Secondary amenorrhea hCG Titer Quant., Serum Today N91.1 - Secondary amenorrhea Follicle Stimulating Hormone Today N91.1 - Secondary amenorrhea Estradiol Today N91.1 - Secondary amenorrhea Plan Assessment and Plan 24-year-old female with a history of Postural Orthostatic Tachycardia Syndrome POTS) presenting with amenorrhea and pelvic pain. The amenorrhea is likely related to long-term oral contraceptive use, as the patient has been on a 24/4 regimen for several years, which can lead to a thin endometrial lining and absence of withdrawal bleeding. Pelvic pain may be associated with previous ovarian cysts, and dyspareunia suggests possible deep pelvic pathology. The patient's POTS contributes to symptoms such as hot flashes and night sweats,complicating the assessment of menopausal symptoms. Increased urinary frequency is noted, but without dysuria or hematuria, suggesting a non-infectious etiology. The patient experiences white coat syndrome, resulting in occasional borderline elevated blood pressure readings in clinical settings, though home readings are normal. 1. Amenorrhea The plan includes evaluating hormone levels with tests such as AMH, serum hCG, FSH, estradiol, and TSH to rule out secondary causes of amenorrhea. Consideration of extending the pill-free interval to seven days to potentially induce withdrawal bleeding was discussed. 2. Pelvic Pain Pelvic pain management will focus on monitoring symptoms and considering furtherevaluation if pain persists or worsens. 3. Dyspareunia Dyspareunia will be monitored, and further evaluation may be considered if symptoms persist. 4. Postural Orthostatic Tachycardia Syndrome (Pots) Management of POTS symptoms will continue with current treatment, and monitoringof symptoms such as hot flashes and night sweats will be ongoing. 5. Increased Urinary Frequency Increased urinary frequency will be monitored, and further evaluation will be considered if symptoms change or worsen. 6. Borderline Elevated Blood Pressure Blood pressure will be monitored, with consideration of white coat syndrome as acontributing factor to elevated readings in clinical settings. - [facility] week to confirm nl bps in order to stay on ocp 12/19/24 [id number] <Electronically signed by Jyotsna mar MD> Date _ [facility]al [facility] Signature: Date (if applicable) CC: ~ [facility] Work Phone: [phone] Telephone encounter Note* Telephone Encounter - Carlos Mercado RN - 10/10/2024 10:13 AM EDT [facility] called at [facility] [phone]. OV notes received and claim was resubmitted yesterday. Nothing further needed. Ref#[id number] for the call. Covering provider updated. Carlos Mercado RN, BSN [facility]06-24-2025 Miscellaneous Notes* Telephone Encounter - Carlos Mercado RN - 10/10/2024 10:13 AM EDT [facility] called at [facility] [phone]. OV notes received and claim was resubmitted yesterday. Nothing further needed. Ref#[id number] for the call. Covering provider updated. Carlos Mercado RN, BSN * Telephone Encounter - Carlos Mercado RN - 10/09/2024 1:59 PM EDT [employer] faxed @ [phone] with OV note 02/28/24 per request noted under cardiac message from 10/04/24 with updated provider contact additionally. Updates sent to covering providers to review if changes are needed with Dx noted. Carlos Mercado RN, BSN * Telephone Encounter - Levy Stuart - 10/09/2024 1:42 PM EDT Patient's insurance calling in to request alternative diagnosis for Heart Monitor. Please advise. Thank you PH. [phone] F. [phone] documented in this encounterSt[facility] Telephone encounter Note * Telephone Encounter - Cralos Mercado RN - 10/09/2024 1:59 PM EDT [employer] faxed @ [phone] with OV note 02/28/24 per request noted under cardiac message from 10/04/24 with updated provider contact additionally. Updates sent to covering providers to review if changes are needed with Dx noted. Carlos Mercado RN, BSN [facility]06-23-2025 Telephone encounter Note* Telephone Encounter - Levy Stuart - 10/09/2024 1:42 PM EDT Patient's insurance calling in to request alternative diagnosis for Heart Monitor. Please advise. Thank you PH. [phone] [facility]06-20-2025 Telephone encounter Note* Telephone Encounter - Pura Will MA - 10/06/2024 1:02 PM EDT Patient records received via electronic fax. Uploaded to [employer] via [employer]omo. Please review in scanned documents tab of chart review. Pura Will MA [facility]06-20-2025 Miscellaneous Notes* Telephone Encounter - Pura Will MA - 10/06/2024 1:02 PM EDT Patient records received via electronic fax. Uploaded to [employer] via [employer]. Please review in scanned documents tab of chart review. Pura Will MA documented in this encounterSt. [facility]12-10-2024 Evaluation note* Diagnosis Onset Date Resolution Status Admit Date Acute URI noneactive March 28, 2024 2:49pm Flu-like symptoms noneactive May 04, 2024 8:27am Contusion of bone acute June 172024 8:28am Left ankle sprain acute June 172024 8:28am Left ankle sprain acute June 192024 8:55am Acute URI noneactive July 20 8:19am [facility] Work Phone: [phone] Telephone encounter Note* Telephone Encounter - Carlos Mercado RN - 03/17/2024 9:20 AM EST ----- Message from Chayito Paige APRN.MICROSOFT EXCHANGE ARCHITECT sent at 03/17/2024 9:12 AM EST ----- Wayne Mclean we let maykel know that her heart monitor she wore showed no significant arrhythmias. The events that she triggered for symptoms correlated with sinus rhythm. Her average heart rate was higher at 94 BPM, which we knew in office that she had a faster baseline HR. She should continue conservative measures and follow up as recommended. Letter mailed out via [employer]. Carlos Mercado RN, BSN [facility]11-29-2024 Miscellaneous Notes* Telephone Encounter - Carlos Mercado RN - 03/17/2024 9:20 AM EST ----- Message from Chayito Paige APRN.MICROSOFT EXCHANGE ARCHITECT sent at 03/17/2024 9:12 AM EST ----- Wayne Mclean we let maykel know that her heart monitor she wore showed no significant arrhythmias. The events that she triggered for symptoms correlated with sinus rhythm. Her average heart rate was higher at 94 BPM, which we knew in office that she had a faster baseline HR. She should continue conservative measures and follow up as recommended. Letter mailed out via [employer]. Carlos Mercado RN, BSN documented in this encounterSt. [facility]'S Hospital11-11-2024 Instructions* Patient Instructions* Chayito Paige APRN.MICROSOFT EXCHANGE ARCHITECT - 02/28/2024 3:41 PM EST Heart monitor Send labs to review Conservative [...] standing and walking. Preferred exercises are walking, squattingor stationery bicycling. An increased exercise duration by [...] raising and resting the leg on a chair.These maneuvers increase blood pressure and can improve orthostatic intolerance quickly and transiently. documented in this encounterSt. [facility]'S Hospital11-11-2024 History of Present illness Narrative* Chayito Paige APRN.TERENCE - 02/28/2024 2:30 PM EST Images from the original note were not included. [facility] - Headache Evaluation Name: Maykel Villar Age: [age] year old Gender: female Primary Care Provider: No primary care provider on file. Consult requested for POTS by Gael Flores. Recommendations will be communicated via shared medical record or US mail. Chief Complaint:No chief complaint on file. 02/28/2024 - General Neurology, Chayito Paige APRN.MICROSOFT EXCHANGE ARCHITECT ASSESSMENT Ms. Maykel Villar is a 24 year old female who presents today for evaluation for POTS. Pee reportssymptoms since she can remember but increased severity/frequency in the last 4-6 months. Symptoms include extreme fatigue, joint pain, lightheaded dizziness that is triggered by positional changes, heat, and long periods of standing, and GI issues. She notes with positional changes, heat, and long periods of standing she will become very hot/diaphoretic, lightheadedness/wooziness, with palpitations. Patient has had episodes of TLOC last svhtpef96/4/2024. After LOC patient is back within seconds with no seizure-like activity. OSH tilt test 02/15/2024 with T LOC at minute 8. Findings were suggestive of postural orthostatic tachycardia syndrome. We do not have full reports of lab work however patient reports extensive workup has been completed. Neurological exam is unremarkable for abnormal findings. Sensory exam fully intact with no symptomsof numbness/tingling. Orthostatic vitals were notable for increased heart rate from 85-113 upon standing. Symptoms sound consistent with postural orthostatic tachycardia syndrome and vasovagal syncope. We discussed tilt table as it does not provide minute by minute numbers, however patient would not liketo go through this again. We have ordered [...] up 1 month (virtual) HPI: Ms. Maykel Villar is a 24 year old female presenting [...] as she can remember. Increased severity/frequency in thelast 4-6 months Extreme fatigue 8 hours of [...] symptoms. Symptoms mitigate in 5-10 minutes with sittingand a couple of minutes if she can [...] frequent meals that she just started. 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 She hasn't been going to [facility] d/t symptoms. 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 Review of Systems Constitutional: [...] good balance. Labs: OS Lab 09/12/20: Radiology: OS TILT 02/15/24: Chart, labs,and relevant images reviewed. This note was dictated using Cardio control speech recognition software and may contain some errors that were a result of the program not accurately transcribing what was dictated, despite efforts to make corrections. Note that unless urgent, test and MRI results will be discussed at next follow- up visit. Medical Decision Making: Medical Decision Making Level: 1 - N/A I spent a total of 55 minutes on the date of the service which included preparing to see the patient, [id number] patient care, completing clinical documentation, obtaining and/or reviewing separately obtained history, performing a medically appropriate examination, counseling and educating the pat ient/family/caregiver, and ordering medications, tests, or procedures. 1. [...] and wish to discuss any issues directly withme, please feel free to obtain one. 3. [...] at the discretion of your PCP/referring physician documented in [facility] NoteHNO ID: [id number] Author: CHAYITO PAIGE APRN.CNP Service: ? Author Type: Nurse Practitioner Type: Progress Notes Filed: 02/28/2024 18:04 Note Text: [facility] for General Neurology - Headache Evaluation Name: Maykel Villar Age: [age] year old Gender: female Primary Care Provider: No primary care provider on file. Consult requested for POTS by Gael Flores. Recommendations will be communicated via shared medical record or US mail. Chief Complaint:No chief complaint on file. 02/28/2024 - General Neurology, Chayito Paige APRN.[employer] ARCHITECT ASSESSMENT Ms. Maykel Villar is a 24 year old female who [...] up 1 month (virtual) HPI: Ms. Maykel Villar is a 24 year old female presenting [...] EGD - unremarkable (2020) Autonomic Screening Do (more content not included)...[facility]11-11-2024 NoteHNO ID: [id number] Author: ARIANA ZARATE MD Service: ? Author Type: Physician Type: Procedures Filed: 03/17/2024 09:06 Note Text: Patient Name: Maykel Villar : 2000 Ordering Provider: CHAYITO PAIGE Indication: G90.A Postural Orthostatic Tachycardia Syndrome Type of Monitor: Extended Monitoring-Zio Patch Enrollment Dates: 03/04/2024-03/12/2024 IRHYTHM FINDINGS: - Underlying rhythm was sinus rhythm. - No significant arrhythmias. - Triggered events correlated with sinus rhythm. Ariana Zarate MD MPH [facility]07-28-2021 NotePRE-OP CONSULTATION DATE OF SERVICE: 11/13/2020 PATIENT SVCS MGR PROVIDER: Amelia Bates APRN-[employer] ARCHITECT SURGICAL DIAGNOSIS: Nausea and vomiting Proposed surgery date: 11/25/2020 Proposed surgical procedure: ENDOSCOPY UPPER (FLEXIBLE) with biopsies and disaccharidases Advice/opinion was requested by Amelia Cisneros * for pre-surgical consultation. CHIEF COMPLAINT: Endoscopy HISTORY OF PRESENT ILLNESS: Maykel Villar is a 20 y.o. female who presents today with nausea and vomiting. Maykel reports for the last few months having nausea after every time she eats, which has led to decrease appetite. Also reports heartburn. Denies abdominal pain, diarrhea, constipation, vomiting, or bloody stool. Patient has been taking Tums with some relief in symptoms. The history is provided by the patient and a chart review for evaluation for surgical risk factors. MEDICAL/SURGICAL HISTORY: Past Medical History: Diagnosis Date Asthma exercised induced No past surgical history on file. Past hospitalizations: no DRUG/FOOD ALLERGIES: No Known Allergies MEDICATIONS: Current Outpatient Medications on File Prior to Visit Medication Sig Dispense Refill JAMIA 0.25-35 MG-MCG per tablet Take by mouth daily Multiple Vitamin (MULTIVITAMIN PO) Take 1 Tab by mouth daily cetirizine (ZYRTEC) 10 MG tablet Take 10 mg by mouth daily as needed for Allergies (Patient not taking: Reported on 11/13/2020) albuterol 108 (90 Base) MCG/ACT inhaler Inhale 2 Puffs into the lungs every 6 hours as needed for Wheezing or Shortness of Breath (Patient not taking: Reported on 11/13/2020) 1 Inhaler 2 DiphenhydrAMINE HCl (BENADRYL ALLERGY PO) Take by mouth (Patient not taking: Reported on 11/13/2020) No current facility-administered medications on file prior to visit. ANESTHESIA HISTORY: Difficulty with anesthesia? No Family history of difficulty with anesthesia? Yes, brother with PONV Signs/symptoms of BHUMI? no BLEEDING HISTORY: History of bleeding issues in patient? no Bleeding problems in family? no History of anemia in patient? no Sickle Cell issues in patient or family? N/A REVIEW OF SYSTEMS: Comprehensive review of systems: History obtained from the patient. General ROS: negative Allergy and Immunology ROS: positive for - seasonal allergies Respiratory ROS: no cough, shortness of breath, or wheezing positive for - h/o exercise induced asthma, has not needed inhaler since summer 2019. Cardiovascular ROS: no chest pain or dyspnea on exertion Gastrointestinal ROS: no abdominal pain, change in bowel habits, or black or bloody stools positive for - nausea Neurological ROS: negative A complete ROS has been performed. All pertinent positives are noted above or in the HPI. All other systems were negative. Recent Illnesses? no HISTORY: Noncontributory DEVELOPMENTAL HISTORY: Milestones: All met as expected IMMUNIZATIONS: Unknown SOCIAL/FAMILY HISTORY: Maykel lives with parents Special Needs: None Preferred Language: [place] School: College Smoking/Alcohol/Drug Use or Exposure: None Family History Problem Relation Age of Onset Migraines Mother Gallbladder Disease Mother Diabetes Father Colon Polyps Father Allergies Brother Asthma Brother exercise induced Anesth Problems Brother Crohn's Disease Maternal Grandmother Gallbladder Disease Maternal Grandmother Gallbladder Disease Maternal Grandfather Cancer Paternal Grandmother Cancer Paternal Grandfather Bleeding Problem Neg Hx Blood Disorders Neg Hx Colon Cancer Neg Hx Celiac Disease Neg Hx Constipation Neg Hx Cystic Fibrosis Neg Hx Eosinophilic Esophagitis Neg Hx Gastroesophageal reflux Neg Hx Hirschsprung's disease Neg Hx Irritable Bowel Syndrome Neg Hx Kidney Disease Neg Hx Liver Disease Neg Hx Pancreatic Disease Neg Hx Lupus Neg Hx Stomach Ulcer(s) Neg Hx Thyroid Disease Neg Hx Ulcerative Colitis Neg Hx VITAL SIGNS: Vitals: 11/13/20 0935 BP: 123/77 Pulse: 84 Resp: 16 Temp: 36.4 C (97.5 F) Ht Readings from Last 1 Encounters: 11/13/20 177.4 cm (99 %, Z= 2.19)* * Growth percentiles are based on CDC (Girls, 2-20 Years) data. Wt Readings from Last 1 Encounters: 11/13/20 69.6 kg (85 %, Z= 1.03)* * Growth percentiles are based on CDC (Girls, 2-20 Years) data. Body mass index is 22.12 kg/m . 57 %ile (Z= 0.18) based on CDC (Girls, 2-20 Years) BMI-for-age based on BMI available as of 11/13/2020. SpO2 Readings from Last 3 Encounters: 11/13/20 100% PHYSICAL EXAM: General: Patient appears healthy, well developed, well nourished, in no acute distress Head: atraumatic and normocephalic Neuro: alert, oriented appropriately for age Eyes: sclera and conjunctiva clear Ears: canals clear, normal, tragus nontender Nose: nares patent without discharge Dentition: intact Throat: oropharynx is clear, mucous membranes are pink and moist without lesions Neck: there is full range of (more content not included)...[facility]07-28-2021 GianlucaAna Maríadyanemory Villar is here for consultation at the request of Georgia Suazo DO for: Abdominal Pain History of Present Illness HPI I had the pleasure of seeing Maykel Villar today in Pediatric Gastroenterology and Nutrition clinic at [facility]. Four months of nausea, with intermittent heartburn No dysphagia or vomiting. Eating a lot less, very restricted. Drinks pop and coffee. B: peach L: half a sub D: charisma Has lost around 20 pounds in the last year, this is unintentional. Denies any changes in bowel habits, or blood in stools. No headaches, fevers, rashes, oral ulcers, diarrhea or constipation. Some days she eats more than others, no vomiting with larger meals. Nausea does last longer with larger meals. Nausea can last 30 minutes to an hour. Previous work up includes labs and an ultrasound - all unremarkable MGM with Crohn's disease Plays Actimize Starting [employer] in December, also playing Mydishball in college Past Medical History Past Medical History: Diagnosis Date Asthma exercised induced Past Surgical History No past surgical history on file. Allergies No Known Allergies Medications Outpatient Encounter Medications as of 11/13/2020 Medication Sig Dispense Refill JAMIA 0.25-35 MG-MCG per tablet Take by mouth daily Multiple Vitamin (MULTIVITAMIN PO) Take 1 Tab by mouth daily albuterol 108 (90 Base) MCG/ACT inhaler Inhale 2 Puffs into the lungs every 6 hours as needed for Wheezing or Shortness of Breath 1 Inhaler 2 DiphenhydrAMINE HCl (BENADRYL ALLERGY PO) Take by mouth cetirizine (ZYRTEC) 10 MG tablet Take 10 mg by mouth daily as needed for Allergies (Patient not taking: Reported on 11/13/2020) Cholecalciferol (VITAMIN D-[address] PO) Take 1 Tab by mouth daily (Patient not taking: Reported on 11/13/2020) No facility-administered encounter medications on file as of 11/13/2020. Family Medical History Family History Problem Relation Age of Onset Migraines Mother Gallbladder Disease Mother Diabetes Father Colon Polyps Father Allergies Brother Asthma Brother exercise induced Anesth Problems Brother Crohn's Disease Maternal Grandmother Gallbladder Disease Maternal Grandmother Gallbladder Disease Maternal Grandfather Cancer Paternal Grandmother Cancer Paternal Grandfather Bleeding Problem Neg Hx Blood Disorders Neg Hx Colon Cancer Neg Hx Celiac Disease Neg Hx Constipation Neg Hx Cystic Fibrosis Neg Hx Eosinophilic Esophagitis Neg Hx Gastroesophageal reflux Neg Hx Hirschsprung's disease Neg Hx Irritable Bowel Syndrome Neg Hx Kidney Disease Neg Hx Liver Disease Neg Hx Pancreatic Disease Neg Hx Lupus Neg Hx Stomach Ulcer(s) Neg Hx Thyroid Disease Neg Hx Ulcerative Colitis Neg Hx Social History Social History Socioeconomic History Marital status: Single Spouse name: None Number of children: None Years of education: None Highest education level: None Occupational History None Tobacco Use Smoking status: Never Smoker Smokeless tobacco: Never Used Substance and Sexual Activity Alcohol use: None Drug use: None Sexual activity: None Other Topics Concern None Social History Narrative None Social Determinants of Health Social determinant risk not applicable to this patient. Diet Social History Water source for child? Well Review of Systems GI ROS Physical Examination Vitals: 11/13/20 0759 BP: 124/87 Pulse: Temp: 37.8 C (100 F) BP Readings from Last 2 Encounters: 11/13/20 124/87 11/16/19 125/78 (86 %, Z = 1.09 / 88 %, Z = 1.18)* *BP percentiles are based on the 2017 AAP Clinical Practice Guideline for girls Weight - Scale: 69.5 kg Height: 178.8 cm Body mass index is 21.74 kg/m . Physical Exam Lab Results Last BMP: Lab Results Component Value Date NA 139 09/12/2020 K 4.2 09/12/2020 CL 103 09/12/2020 CO2 24.2 09/12/2020 BUN 13 09/12/2020 GLU 79 09/12/2020 CREATININE 0.83 09/12/2020 CALCIUM 9.8 09/12/2020 Last CBC: Last Result Complete Blood Count Collection Time: 09/12/20 10:10 AM Result Value Ref Range WBC 4.4 (L) 4.5 - 13.0 10E9/L Nucleated RBC Percent 0.0 -1.0 - 0.0 % RBC 5.07 (H) 4.10 - 4.80 10E12/L Hemoglobin 15.1 (H) 12.0 - 15.0 g/dl Hematocrit 44.5 37 - 46 % MCV 87.8 78.0 - 96.0 fl MCH 29.8 25.0 - 35.0 pg MCHC 33.9 31 - 37 % RDW 12.8 0.0 - 14.4 % Platelets 212 150 - 450 10E9/L MPV 11.3 fl Comment: MPV is platelet range and age dependent Differential Complete Automated NA % Neutrophils 38.6 34 - 64 % % Lymphocytes 50.6 (H) 25.0 - 45.0 % % Monocytes 7.90 (H) 3 - 6 % % Eosinophils 1.80 0 - 3 % Basophils 0.90 0.00 - 1.00 % Neutrophil # 1.7 (L) 2.0 - 7.2 10E3/uL % Immature Granulocyte 0.20 % Comment: Immature Granulocyte Percent includes promyelocytes, myelocytes, and metamyelocytes. IG% > 1.0 indicates a left shift is present. With automated differentials, bands are included (more content not included)...[facility] Diagnosis Onset Date Resolution Status Acute diffuse otitis externa of right ear acute Acute sinusitis, unspecified acute URI (upper respiratory infection) acute [facility] Work Phone: Evaluation note* Diagnosis POTS (postural orthostatic tachycardia syndrome)- Primary Tachycardia, unspecified Malaise and fatigue Other malaise and fatigue Transient loss of consciousness Syncope and collapse [facility] Diagnosis Onset Date Resolution Status Admit Date Acute pelvic pain, female acute December 19, 2024 2:28pm Secondary amenorrhea acute Dec 2:28pm [facility] Work Phone: Reason for referral (narrative)No reason for referral information availableWOur [facility] of [facility] Work Phone: Instructions Instruction Description Start Date Completed Advance Directives Advance Directive Response Recorded Date/ Time Living Will No December 01 2 10:36pm Power of Lockstitch Topstitcher No December 01 022 10:36pm Assessments There may be information available, but it has not been provided by the sender. Review of System There may be information available, but it has not been provided by the sender. Family History Relationship Condition Age at Onset Recorded Date/T giorgi father Type 1 diabetes mellitus Unknown Relationship Condition Age at Onset Recorded Date/T giorgi father Type 1 diabetes mellitus Unknown Hypertension Unknown mother Hypertension Unknown grandfather Malignant neoplasm Unknown grandmother Malignant neoplasm Unknown Summary Purpose Chief Complaint and Reason for Visit Chief Complaint CONCERN FOR RIGHT EA R INFECTION COUGH/CONGESTION R FLANK Reason for Visit Acute diffuse otitis externa of right ear Acute sinusitis, unspecified URI (upper respiratory infection) Chief Complaint Admit Date CONGESTION / SINUS March 28, 2024 2:49pm possible flu May 04, 2024 8 :27am LEFT ANKLE June 27, 2024 8:2 8am Room 2 June 27, 2024 8:3 9am LEFT ANKLE July 17, 2024 8:5 5am Room 3 July 17, 2024 9:0 3am SORE TONSILS/CHEST CONGESTION July 20, 2024 8:19am Reason for Visit Admit Date Acute URI March 28, 2024 2:49pm Flu-like symptoms May 04, 2024 8 :27am Contusion of bone June 27, 2024 8:2 8am Left ankle sprain June 27, 2024 8:2 8am Left ankle sprain July 17, 2024 8:5 5am Acute URI July 20, 2024 8:19 am Chief Complaint Admit Date 3 M NO MENSES NEG PREG TEST CYSTS ON OVA SHANICE December 19, 2024 2:28pm Reason for Visit Admit Date Acute pelvic pain, female December 19, 2024 2:28pm Secondary amenorrhea December 19, 2024 2:28pm Additional Source Comments INFORMATION SOURCE (unrecogn ized section and content) DATE CREATED AUTHOR 11/22/2020 [facility] DATE CREATED AUTHOR AUTHOR'S ORGANIZ ATION 05/18/2021 [facility] DATE CREATED AUTHOR AUTHOR'S ORGANIZ ATION 10/21/2024 [facility] DATE CREATED AUTHOR AUTHOR'S ORGANIZ ATION 12/17/2024 [facility] Goals (unrecognized section and content) Goals may be documented in a n alternate sectionGoals may be documented in an alternate sectionGoals may be documented in an alternate section Source Comments (unrecognize d section and content) In the event this informatio n is protected by the Federal Confidentiality of Alcohol and Drug Abuse Patient Records regulations: The Federal rules restrict any use of the information to criminally investigate or prosecute any alcohol or drug abuse patient.[facility] the event this information is protected by the Federal Confidentiality of Alcohol and Drug Abuse Patient Records regulations: The Federal rules restrict any use of the information to criminally investigate or prosecute any alcohol or drug abuse patient.[facility] Hospital[facility] the event this information is protected by the Federal Confidentiality of Alcohol and Drug Abuse Patient Records regulations: The Federal rules restrict any use of the information to criminally investigate or prosecute any alcohol or drug abuse patient.[facility] HospitalIn the event this information is protected by the Federal Confidentiality of Alcohol and Drug Abuse Patient Records regulations: The Federal rules restrict any use of the information to criminally investigate or prosecute any alcohol or drug abuse patient.[facility] Reason for Visit (unrecogniz ed section and content) Reason Comments New Patient POTS last episode wa s Kapil and she passed out was recently diginose. 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 Coco Roldan MD Family Provider Active Dr. Gael Flores MD Primary Care Provider Active Team Status: Inactive Member Role Status Dates Dr. Gael Flores MD Primary Care Provider Active Start: March 28, 2024 End: March 28, 2024 Dr. Gael Flores MD Attending Provider Active Start: March 28, 2024 End: March 28, 2024 Dr. Gael Flores MD Referring Provider Active Start: March 28, 2024 End: March 28, 2024 Team Status: Inactive Member Role Status Dates Dr. Gael Flores MD Primary Care Provider Active Start: May 04, 2024 End: May 04, 2024 Dr. Gael Flores MD Attending Provider Active Start: May 04, 2024 End: May 04, 2024 Dr. Gael Flores MD Referring Provider Active Start: May 04, 2024 End: May 04, 2024 Team Status: Inactive Member Role Status Dates Dr. Gael Flores MD Primary Care Provider Active Start: June 27, 2024 End: June 27, 2024 Dr. Gael Flores MD Referring Provider Active Start: June 27, 2024 End: June 27, 2024 ROBERTO MorfinC Attending Provider Active Start: June 27, 2024 End: June 27, 2024 Team Status: Inactive Member Role Status Dates Dr. Gael Flores MD Primary Care Provider Active Start: June 27, 2024 End: June 27, 2024 Dr. Hemanth Moore MD Attending Provider Active S tart: June 27, 2024 End: June 27, 2024 Team Status: Inactive Member Role Status Dates Dr. Gael Flores MD Primary Care Provider Active Start: July 17, 2024 End: July 17, 2024 Dr. Gael Flores MD Referring Provider Active Start: July 17, 2024 End: July 17, 2024 QUOC Morfin Attending Provider Active Start: July 17, 2024 End: July 17, 2024 Team Status: Inactive Member Role Status Dates Dr. Gael Flores MD Primary Care Provider Active Start: July 17, 2024 End: July 17, 2024 Dr. Hemanth Moore MD Attending Provider Active S tart: July 17, 2024 End: July 17, 2024 Team Status: Inactive Member Role Status Dates Dr. Gael Flores MD Primary Care Provider Active Start: July 20, 2024 End: July 20, 2024 Dr. Gael Flores MD Attending Provider Active Start: July 20, 2024 End: July 20, 2024 Dr. Gael Flores MD Referring Provider Active Start: July 20, 2024 End: July 20, 2024 Team Status: Inactive Member Role Status Dates Dr. Gael Flores MD Primary Care Provider Active Start: July 20, 2024 End: July 20, 2024 Dr. Gael Flores MD Attending Provider Active Start: July 20, 2024 End: July 20, 2024 Press Loader Relationship Specialty Start Date End Date Gael Flores MD [address] [place] [address] [place] Referring Team Internal Medicine 02/23/24 Team Status: Active Member Role/Relationship Status Dates Dr. Coco Roldan MD Family Provider Active Dr. Gael Flores MD Primary Care Provider Active Team Status: Active Member Role/Relationship Status Dates [facility] Attending Provider Active Start: November 20, 2024 Team Status: Inactive Member Role/Relationship Status Dates Dr. Gael Flores MD Primary Care Provider Active Start: December 19, 2024 End: December 19, 2024 Dr. Gael Flores MD Referring Provider Active Start: December 19, 2024 End: December 19, 2024 Dr. Jyotsna Oneal MD Attending Provider Active Start: December 19, 2024 End: December 19, 2024 Team Status: Active Member Role/Relationship Status Dates Dr. Gael Flores MD Primary Care Provider Active Start: December 19, 2024 Dr. Jyotsna Oneal MD Attending Provider Active Start: December 19, 2024 Dr. Jyotsna Oneal MD Referring Provider Active Start: December 19, 2024 FOR RECORDS PERTAINING TO PATIENTS WHO ARE OR HAVE BEEN ENROLLED IN A CHEMICAL DEPENDENCY/SUBSTANCEABUSE PROGRAM, SOME INFORMATION MAY BE OMITTED. This clinical summary was aggregated from multiple sources. Caution should be exercised in using it in the provision of clinical care. This summary normalizes information from multiple sources, and as a consequence, information in this document may materially change the coding, format and clinical context of patient data. In addition, data may be omitted in some cases. CLINICAL DECISIONS SHOULD BE BASED ON THE PRIMARY CLINICAL RECORDS. [employer] provides no warranty or guarantee of the accuracy or completeness of information in this document.
[2024-12-24 01:07] LABS: Anti-Mullerian Hormone,Serum 1.43 ng/mL (.)
== END | disposition home or self-care (01) ==
PROVIDERS: PCP Internal Medicine; Referring Provider Obstetrics & Gynecology; Visit Provider Obstetrics & Gynecology
DX: N91.1 Secondary amenorrhea (principal)
CPT/HCPCS: 36415; 82670; 83001; 83516; 84702

== ENCOUNTER → 2024-12-28 | Outpatient (CLI) | payer BC, SELFPAY ==
--- NOTE | 2024-12-28 15:25 | US_ITS ---
PROCEDURE: PELVIC W/ TRANSVAGINAL REASON FOR EXAM: SECONDARY AMENNORHEA TECHNIQUE: Procedure Code: [id number] Modality: US Procedure: PELVIC W/ TRANSVAGINAL COMPARISON: None FINDINGS: LMP: December 21, 2024. Measurements: Uterus: 8.3 cm x 4.5 cm x 2.9 cm with a volume of 56.3 mL Endometrial Thickness: 7 mm. It is trilaminar in appearance. Right Ovary: 2.9 cm x 1.7 cm x 2 cm with a volume of 5.1 mL. Left Ovary: 3.2 cm x 2.3 cm x 2.8 cm with a volume of 10.9 mL. TRANSABDOMINAL: Uterus: Normal size, myometrial echotexture, and contour. The cervix is fluid-filled. Endometrium: Unremarkable. Right ovary: Normal size and echotexture. Left ovary: Normal size and echotexture. Other: No large pelvic mass identified. Transvaginal sonography was performed to better visualize the endometrium. TRANSVAGINAL: Uterus: Anteverted. The cervix is fluid-filled. Endometrium: Normal echotexture. Right ovary: Normal size and echotexture. Left ovary: Normal size and echotexture. Other adnexal findings: None. Cul-de-sac: No free intraperitoneal fluid identified. Tenderness: No tenderness US/Pelvic w/ Transvaginal IMPRESSION: NORMAL TRANSABDOMINAL AND TRANSVAGINAL PELVIC ULTRASOUND. Reading Location: [id number]
[2024-12-28 16:28] LABS: Follicle Stimulating Hormone 5.1 mIU/mL
== END | disposition home or self-care (01) ==
PROVIDERS: PCP Internal Medicine; Referring Provider Obstetrics & Gynecology; Visit Provider Obstetrics & Gynecology
DX: N91.1 Secondary amenorrhea (principal)
CPT/HCPCS: 36415; 76830; 76856; 82670; 83001

== ENCOUNTER 2025-01-15 04:01 | Emergency (ER) | payer BC, SELFPAY ==
--- OUTSIDE RECORDS SUMMARY | 2024-02-28 15:30 | XMS RPT_ITS ---
Author Name Auto Generated Organization OHIP Care Team Providers Care Rn Forensic Name Role Phone CHAYITO MARTÍNEZ Attending Unavailable GAEL FLORES Referring Unavailable PROBLEMS No Problem Records Found PROCEDURES No Procedure Records Found RESULTS CNPN Observed: 10/09/2024 12:00 AM Status: COMPLETED Source: [facility] Telephone (NEURST) MAYKEL BROCK ([id number]) 4 F Date Time Provider Department 10/09/24 CHAYITO MARTÍNEZ NEURST During your visit today, we recorded the following information about you: Levy Stuart 10/09/2024 1:44 PM Signed Patient's insurance calling in to request alternative diagnosis for Heart Monitor. Please advise. Thank you PH. [phone] F. [phone] Carlos Mercado RN 10/09/2024 2:01 PM Signed [employer] faxed @ [phone] with OV note 02/28/24 per request noted under cardiac message from 10/04/24 with updated provider contact additionally. Updates sent to covering providers to review if changes are needed with Dx noted. Carlos Mercado RN, BSN Carlos Mercado RN 10/10/2024 10:15 AM Signed [employer] called at PH. [phone]. OV notes received and claim was resubmitted yesterday. Nothing further needed. Ref#[id number] for the call. Covering provider updated. 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 - ethinyl estradiol/drospirenone (VESTURA, 28, ORAL) Take 3 mg by mouth once daily. - SUMAtriptan (IMITREX) 25 mg tablet Take 25 mg by mouth as needed for migraine headache (see administration instructions). May repeat dose after 2 hours if needed. Maximum daily dose is 200 mg per day. Problem List As Of Date: 10/09/2024 (None) Encounter Status:Closed by LEVY STUART on 10/19/24 TERENCEN Observed: 10/06/2024 12:00 AM Status: COMPLETED Source: [facility] Telephone (KeyweePST) MAYKEL BROCK ([id number]) 4 F Date Time Provider Department 10/06/24 [facility] During your visit today, we recorded the following information about you: Rafia Capellan MA 10/06/2024 1:03 PM Signed Patient records received via electronic fax. Uploaded to [facility] via [employer]. Please review in scanned documents tab of chart review. Rafia Capellan MA Allergies As of Date: 10/06/2024 (Not on File) Date Reviewed: 02/28/2024 Reviewed by: Ольга Wesley MA - Fully Assessed Reason for Visit: Heart Problem [54] Prescriptions as of 10/06/2024 - LEXAPRO 10 mg tablet Take 10 mg by mouth once daily. - ethinyl estradiol/drospirenone (VESTURA, 28, ORAL) Take 3 mg by mouth once daily. - SUMAtriptan (IMITREX) 25 mg tablet Take 25 mg by mouth as needed for migraine headache (see administration instructions). May repeat dose after 2 hours if needed. Maximum daily dose is 200 mg per day. Problem List As Of Date: 10/06/2024 (None) Encounter Status:Closed by RAFIA CAPELLAN on 10/06/24 [facility]I Observed: 03/17/2024 12:00 AM Status: COMPLETED Source: [facility] Telephone (NENMMN) MAYKEL BROCK ([id number]) 4 F Date Time Provider Department 03/17/24 CHAYITO MARTÍNEZ During your visit today, we recorded the following information about you: Carlos Mercado RN 03/17/2024 9:21 AM Addendum ----- Message from Chayito Martínez APRN.NETWORK SYSTEMS ANALYST sent at 03/17/2024 9:12 AM EST ----- Sebastián talbert, Can we let maykel know that her heart monitor she wore showed no significant arrhythmias. The events that she triggered for symptoms correlated with sinus rhythm. Her average heart rate was higher at 94 BPM, which we knew in office that she had a faster baseline HR. She should continue conservative measures and follow up as recommended. Letter mailed out via [employer]. 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 - ethinyl estradiol/drospirenone (VESTURA, 28, ORAL) Take 3 mg by mouth once daily. - SUMAtriptan (IMITREX) 25 mg tablet Take 25 mg by mouth as needed for migraine headache (see administration instructions). May repeat dose after 2 hours if needed. Maximum daily dose is 200 mg per day. Problem List As Of Date: 03/17/2024 (None) Encounter Status:Closed by CARLOS MERCADO on 03/17/24 PROGRESS Observed: 02/28/2024 2:30 PM Status: COMPLETED Source: [facility] HNO ID: [id number] Author: CHAYITO MARTÍNEZ APRN.NETWORK SYSTEMS ANALYST Service: ? Author Type: Nurse Practitioner Type: Progress Notes Filed: 02/28/2024 18:04 Note Text: [facility] for General Neurology - Headache Evaluation Name: Maykel Brock Age: [age] year old Gender: female Primary Care Provider: No primary care provider on file. Consult requested for POTS by Gael Flores. Recommendations will be communicated via shared medical record or US mail. Chief Complaint:No chief complaint on file. 02/28/2024 - General Neurology, Chayito Martínez APRN.NETWORK SYSTEMS ANALYST ASSESSMENT Ms. Maykel Brock is a 24 year old female who presents today for evaluation for POTS. Pee reports symptoms since she can remember but increased severity/frequency in the last 4-6 months. Symptoms include extreme fatigue, joint pain, lightheaded dizziness that is triggered by positional changes, heat, and long periods of standing, and GI issues. She notes with positional changes, heat, and long periods of standing she will become very hot/diaphoretic, lightheadedness/wooziness, with palpitations. Patient has had episodes of TLOC last episode 02/21/2024. After LOC patient is back within seconds with no seizure-like activity. OSH tilt test 02/15/2024 with T LOC at minute 8. Findings were suggestive of postural orthostatic tachycardia syndrome. We do not have full reports of lab work however patient reports extensive workup has been completed. Neurological exam is unremarkable for abnormal findings. Sensory exam fully intact with no symptoms of numbness/tingling. Orthostatic vitals were notable for increased heart rate from 85-113 upon standing. Symptoms sound consistent with postural orthostatic tachycardia syndrome and vasovagal syncope. We discussed tilt table as it does not provide minute by minute numbers, however patient would not like to go through this again. We have ordered a heart monitor given resting heart rate on tilt test noted 115 bpm to evaluate for arrhythmia or IST. We discussed extensive lab work that was completed, however unable to see all records. She will get these sent over for review. We discussed in depth conservative measures. We also discussed medication treatment options such as metoprolol given possible hyperadrenergic POTS with elevated BPs, at this time she would like to continue with increasing conservative measures. She will monitor blood pressures and heart rates daily for review if medication options are needed. She will follow-up in 1 month virtually or sooner symptoms worsen. PLAN 1. Heart monitor 2. Send labs to review 3. Conservative measures 4. Monitor blood pressure and heart rates daily 5. Follow up 1 month (virtual) HPI: Ms. Maykel Brock is a 24 year old female presenting for evaluation for POTS PMHx: Exercise induced asthma (grew out of it), GI, migraines, anxiety, PMDD, POTS. Chart Review: PCP OSH 02/22/24: Chest discomfort with question of possible anxiety. At last visit demonstrated positive orthostatics (elevated HR - suggestive of POTS). TILT table test was completed last week that supported POTS. Episode of syncope - 10 seconds. Compression stockings and referral to POTS clinic. Possible low dose of metoprolol. GI referral for nausea/vomiting and diarrhea with eating. Symptoms have been occurring since as long as she can remember. Increased severity/frequency in the last 4-6 months Extreme fatigue 8 hours of sleep a night She has been able to fall asleep quicker and able to stay asleep since starting Lexapro for PMDD. Denies snoring or waking up gasping for air. She will take a nap if she can 30-60 minutes Joint pain Neck, shoulders, hips Denies swelling, redness, or heat to the areas. Tylenol can sometimes help Notes CELESTINO w/ reflex completed, CELESTINO (+) Reflex (-). No records. Lightheaded/dizziness. Triggers: Positional changes, Heat, Long periods of standing Starts with heat/diaphoresis, lightheadedness/woozy, palpitations (fast and hard) Notes HR up to 160 BPM. Sitting down < Laying down can mitigate symptoms. Symptoms mitigate in 5-10 minutes with sitting and a couple of minutes if she can lay down. TLOC episodes: 10 in her life. Last TLOC 02/21/24 when she was walking outside after work (heat/bowen) TLOC only out for a couple of seconds. Denies jerk like movements, buccal/tongue biting, or bladder/bowel dysfunction. No hx of seizures. Denies head injury with TLOC. During TILT test, she LOC at 8 minutes prior to it she felt very nauseas GI issues If she gets full she gets nauseas. Episodes at night middle epigastric and RUQ pain that is stabbing - lasting an hour or two. Occurs after eating - especially with spicy or fatty foods. Saw GI specialist in the past and following up. Blood work was unremarkable. EGD - unremarkable (2020) Autonomic Screening Do you become dizzy or lightheaded with standing? yes Do you notice your heart racing (tachycardia) with postural change? yes Do you have syncope? yes In the past month, did you have any falls? no How long can you stand (in minutes) before becoming symptomatic? Right away - 60 minutes Are symptoms worse after consuming a meal? More tired after eating. Are symptoms alleviated by sitting/laying down? Yes Autonomic check list: YES (Y) or NO (N) Dry mouth: no Dry eyes: no Change in sweat: no Constipation: no Early Satiety no Abdominal Bloating shortly after eating: Skin changes of blue or redness to distal limbs: yes, (red splotchy in hands), after shower legs are purple/red. near syncope/syncope: yes Dizziness: yes Chest pain: no Challenge in breathing: Heavy breathing if episodes are severe. Tachycardia: yes, standing up. Temperature Regulation: yes, heat tolerance. Numbness / tingling: No Hx of head/neck trauma? No Hx of severe viral illness? No Hx of autoimmune disease? No Current management of orthostatic condition Diet: Regular diet, smaller frequent meals that she just started. 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 She hasn't been going to the gym d/t symptoms. Water: 30 ounces (Kenneth) four of them a day. - Liquid IV, Gatorade that can help symptoms. Salt: Recently increased salt that has helped. Stockings: Ordered some, but has one pair. Knee high's that have helped. 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 Review of Systems Constitutional: Positive for diaphoresis and fatigue. Respiratory: Positive for shortness of breath. Cardiovascular: Positive for palpitations. Gastrointestinal: Positive for nausea. Endocrine: Positive for heat intolerance. Neurological: Positive for dizziness, light-headedness and headaches. There is no problem list on file for this patient. No past medical history on file. Medications: Reviewed No prescriptions on file. ALLERGIES Not on File No family history on file. No past surgical history on file. SOCIAL HISTORY No social history on file. Tobacco Use: Not on file PHYSICAL EXAM BP w/Orthostatic Vitals Date and Time Orthostatic BP Orthostatic Pulse BP Pulse BP Position BP Site BP Cuff Size 02/28/24 1522 137/93 113 -- -- Standing Right Arm -- 02/28/24 1521 138/92 110 -- -- Standing Left Arm -- 02/28/24 1520 142/84 100 -- -- Sitting Left Arm -- 02/28/24 1519 133/85 85 -- -- Supine Left Arm -- Neurological Exam Mental Status Alert, fully oriented, attentive, with normal cognition, memory, speech and affect. Cognitive and Language: Alert and answered questions appropriately. Language was fluent. Followed simple and complex commands. Cranial Nerves: Visual lopez were full tested binocularly to finger counting in all 4 quadrants with no visual extinction. Pupils were equal and both reactive to light. Extraocular movements were full with no diplopia or nystagmus. Facial sensation was normal to light touch in V1 to V3. Facial strength was symmetric. Normal hearing grossly bilaterally. Palatal raise was symmetric. Shoulder shrug was symmetric. Tongue protrusion was symmetric with no fasciculations. Occipital nerve tenderness? No Mastoid tenderness? No Trigeminal nerve tenderness? No Right Left Shoulder Abduction: 5 5 Elbow Extension 5 5 Elbow Flexion 5 5 Wrist Extension 5 5 Finger Extension 5 5 Finger Abduction 5 5 Right Left Hip Flexion 5 5 Knee Extension 5 5 Knee Flexion 5 5 Dorsiflexion 5 5 Plantar Flexion 5 5 Rest tremor: absent Tone: Normal in all four limbs Ponce's: Negative Babinski: Downward going Reflexes: Right Left Brachioradialis 2 2 Biceps 2 2 Triceps 2 2 Patella 2 2 Ankle 2 2 Sensory: Pinprick: Intact in all 4 extremities Temperature: Intact in all 4 extremities Vibratory: Intact in all 4 extremities Proprioception: Intact in all 4 extremities Coordination: Normal finger to nose and heel to peter testing bilaterally. Negative romberg. Normal gait. Tandem with good balance. Labs: [facility] 09/12/20: Radiology: [facility] TILT 02/15/24: Chart, labs,and relevant images reviewed. This note was dictated using Minubo speech recognition software and may contain some errors that were a result of the program not accurately transcribing what was dictated, despite efforts to make corrections. Note that unless urgent, test and MRI results will be discussed at next follow-up visit. Medical Decision Making: Medical Decision Making Level: 1 - N/A I spent a total of 55 minutes on the date of the service which included preparing to see the patient, [id number] patient care, completing clinical documentation, obtaining and/or reviewing separately obtained history, performing a medically appropriate examination, counseling and educating the patient/family/caregiver, and ordering medications, tests, or procedures. 1. This office note has been dictated and may contain minor typographic errors that escaped review. 2. The nursing staff and medical assistants are a major part of YOUR TREATMENT TEAM and will be handling your phone calls and inquiries, if any. Unless explicitly told otherwise at the time of your office visit, your study results and ensuing treatment plans will be discussed during your follow-up appointment. If you do not have a follow-up appointment and wish to discuss any issues directly with me, please feel free to obtain one. 3. It is my practice to not fill disability or any other insurance-related forms/documention. All of the office notes, study results, and other pertinent documentation generated as part of your evaluation will be available to you and to your Primary Care Physician (PCP). Use of this material to complete such forms will be at the discretion of your PCP/referring physician XENA Observed: 02/28/2024 2:30 PM Status: COMPLETED Source: [facility] Office Visit (NEURST) MAYKEL BROCK ([id number]) 4 F Date Time Provider Department 02/28/24 2:30 PM CHAYITO MARTÍNEZ NEUR During your visit today, we recorded the following information about you: Weight Height 87 kg 1.803 m Chayito Martínez APRN.NETWORK SYSTEMS ANALYST 02/28/2024 6:04 PM Signed [facility] for General Neurology - Headache Evaluation Name: Maykel Brock Age: [age] year old Gender: female Primary Care Provider: No primary care provider on file. Consult requested for POTS by Gael Flores. Recommendations will be communicated via shared medical record or US mail. Chief Complaint:No chief complaint on file. 02/28/2024 - General NeurologyChayito APRN.NETWORK SYSTEMS ANALYST ASSESSMENT Ms. Maykel Brock is a 24 year old female who presents today for evaluation for POTS. Pee reports symptoms since she can remember but increased severity/frequency in the last 4-6 months. Symptoms include extreme fatigue, joint pain, lightheaded dizziness that is triggered by positional changes, heat, and long periods of standing, and GI issues. She notes with positional changes, heat, and long periods of standing she will become very hot/diaphoretic, lightheadedness/wooziness, with palpitations. Patient has had episodes of TLOC last episode 02/21/2024. After LOC patient is back within seconds with no seizure-like activity. OSH tilt test 02/15/2024 with T LOC at minute 8. Findings were suggestive of postural orthostatic tachycardia syndrome. We do not have full reports of lab work however patient reports extensive workup has been completed. Neurological exam is unremarkable for abnormal findings. Sensory exam fully intact with no symptoms of numbness/tingling. Orthostatic vitals were notable for increased heart rate from 85-113 upon standing. Symptoms sound consistent with postural orthostatic tachycardia syndrome and vasovagal syncope. We discussed tilt table as it does not provide minute by minute numbers, however patient would not like to go through this again. We have ordered a heart monitor given resting heart rate on tilt test noted 115 bpm to evaluate for arrhythmia or IST. We discussed extensive lab work that was completed, however unable to see all records. She will get these sent over for review. We discussed in depth conservative measures. We also discussed medication treatment options such as metoprolol given possible hyperadrenergic POTS with elevated BPs, at this time she would like to continue with increasing conservative measures. She will monitor blood pressures and heart rates daily for review if medication options are needed. She will follow-up in 1 month virtually or sooner symptoms worsen. PLAN 1. Heart monitor 2. Send labs to review 3. Conservative measures 4. Monitor blood pressure and heart rates daily 5. Follow up 1 month (virtual) HPI: Ms. Maykel Brock is a 24 year old female presenting for evaluation for POTS PMHx: Exercise induced asthma (grew out of it), GI, migraines, anxiety, PMDD, POTS. Chart Review: PCP OSH 02/22/24: Chest discomfort with question of possible anxiety. At last visit demonstrated positive orthostatics (elevated HR - suggestive of POTS). TILT table test was completed last week that supported POTS. Episode of syncope - 10 seconds. Compression stockings and referral to POTS clinic. Possible low dose of metoprolol. GI referral for nausea/vomiting and diarrhea with eating. Symptoms have been occurring since as long as she can remember. Increased severity/frequency in the last 4-6 months Extreme fatigue 8 hours of sleep a night She has been able to fall asleep quicker and able to stay asleep since starting Lexapro for PMDD. Denies snoring or waking up gasping for air. She will take a nap if she can 30-60 minutes Joint pain Neck, shoulders, hips Denies swelling, redness, or heat to the areas. Tylenol can sometimes help Notes CELESTINO w/ reflex completed, CELESTINO (+) Reflex (-). No records. Lightheaded/dizziness. Triggers: Positional changes, Heat, Long periods of standing Starts with heat/diaphoresis, lightheadedness/woozy, palpitations (fast and hard) Notes HR up to 160 BPM. Sitting down < Laying down can mitigate symptoms. Symptoms mitigate in 5-10 minutes with sitting and a couple of minutes if she can lay down. TLOC episodes: 10 in her life. Last TLOC 02/21/24 when she was walking outside after work (heat/bowen) TLOC only out for a couple of seconds. Denies jerk like movements, buccal/tongue biting, or bladder/bowel dysfunction. No hx of seizures. Denies head injury with TLOC. During TILT test, she LOC at 8 minutes prior to it she felt very nauseas GI issues If she gets full she gets nauseas. Episodes at night middle epigastric and RUQ pain that is stabbing - lasting an hour or two. Occurs after eating - especially with spicy or fatty foods. Saw GI specialist in the past and following up. Blood work was unremarkable. EGD - unremarkable (2020) Autonomic Screening Do you become dizzy or lightheaded with standing? yes Do you notice your heart racing (tachycardia) with postural change? yes Do you have syncope? yes In the past month, did you have any falls? no How long can you stand (in minutes) before becoming symptomatic? Right away - 60 minutes Are symptoms worse after consuming a meal? More tired after eating. Are symptoms alleviated by sitting/laying down? Yes Autonomic check list: YES (Y) or NO (N) Dry mouth: no Dry eyes: no Change in sweat: no Constipation: no Early Satiety no Abdominal Bloating shortly after eating: Skin changes of blue or redness to distal limbs: yes, (red splotchy in hands), after shower legs are purple/red. near syncope/syncope: yes Dizziness: yes Chest pain: no Challenge in breathing: Heavy breathing if episodes are severe. Tachycardia: yes, standing up. Temperature Regulation: yes, heat tolerance. Numbness / tingling: No Hx of head/neck trauma? No Hx of severe viral illness? No Hx of autoimmune disease? No Current management of orthostatic condition Diet: Regular diet, smaller frequent meals that she just started. 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 She hasn't been going to the gym d/t symptoms. Water: 30 ounces (Kenneth) four of them a day. - Liquid IV, Gatorade that can help symptoms. Salt: Recently increased salt that has helped. Stockings: Ordered some, but has one pair. Knee high's that have helped. 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 Review of Systems Constitutional: Positive for diaphoresis and fatigue. Respiratory: Positive for shortness of breath. Cardiovascular: Positive for palpitations. Gastrointestinal: Positive for nausea. Endocrine: Positive for heat intolerance. Neurological: Positive for dizziness, light-headedness and headaches. There is no problem list on file for this patient. No past medical history on file. Medications: Reviewed No prescriptions on file. ALLERGIES Not on File No family history on file. No past surgical history on file. SOCIAL HISTORY No social history on file. Tobacco Use: Not on file PHYSICAL EXAM BP w/Orthostatic Vitals Date and Time Orthostatic BP Orthostatic Pulse BP Pulse BP Position BP Site BP Cuff Size 02/28/24 1522 137/93 113 -- -- Standing Right Arm -- 02/28/24 1521 138/92 110 -- -- Standing Left Arm -- 02/28/24 1520 142/84 100 -- -- Sitting Left Arm -- 02/28/24 1519 133/85 85 -- -- Supine Left Arm -- Neurological Exam Mental Status Alert, fully oriented, attentive, with normal cognition, memory, speech and affect. Cognitive and Language: Alert and answered questions appropriately. Language was fluent. Followed simple and complex commands. Cranial Nerves: Visual lopez were full tested binocularly to finger counting in all 4 quadrants with no visual extinction. Pupils were equal and both reactive to light. Extraocular movements were full with no diplopia or nystagmus. Facial sensation was normal to light touch in V1 to V3. Facial strength was symmetric. Normal hearing grossly bilaterally. Palatal raise was symmetric. Shoulder shrug was symmetric. Tongue protrusion was symmetric with no fasciculations. Occipital nerve tenderness? No Mastoid tenderness? No Trigeminal nerve tenderness? No Right Left Shoulder Abduction: 5 5 Elbow Extension 5 5 Elbow Flexion 5 5 Wrist Extension 5 5 Finger Extension 5 5 Finger Abduction 5 5 Right Left Hip Flexion 5 5 Knee Extension 5 5 Knee Flexion 5 5 Dorsiflexion 5 5 Plantar Flexion 5 5 Rest tremor: absent Tone: Normal in all four limbs Ponce's: Negative Babinski: Downward going Reflexes: Right Left Brachioradialis 2 2 Biceps 2 2 Triceps 2 2 Patella 2 2 Ankle 2 2 Sensory: Pinprick: Intact in all 4 extremities Temperature: Intact in all 4 extremities Vibratory: Intact in all 4 extremities Proprioception: Intact in all 4 extremities Coordination: Normal finger to nose and heel to peter testing bilaterally. Negative romberg. Normal gait. Tandem with good balance. Labs: OSH Lab 09/12/20: Radiology: OSH TILT 02/15/24: Chart, labs,and relevant images reviewed. This note was dictated using Minubo speech recognition software and may contain some errors that were a result of the program not accurately transcribing what was dictated, despite efforts to make corrections. Note that unless urgent, test and MRI results will be discussed at next follow-up visit. Medical Decision Making: Medical Decision Making Level: 1 - N/A I spent a total of 55 minutes on the date of the service which included preparing to see the patient, [id number] patient care, completing clinical documentation, obtaining and/or reviewing separately obtained history, performing a medically appropriate examination, counseling and educating the patient/family/caregiver, and ordering medications, tests, or procedures. 1. This office note has been dictated and may contain minor typographic errors that escaped review. 2. The nursing staff and medical assistants are a major part of YOUR TREATMENT TEAM and will be handling your phone calls and inquiries, if any. Unless explicitly told otherwise at the time of your office visit, your study results and ensuing treatment plans will be discussed during your follow-up appointment. If you do not have a follow-up appointment and wish to discuss any issues directly with me, please feel free to obtain one. 3. It is my practice to not fill disability or any other insurance-related forms/documention. All of the office notes, study results, and other pertinent documentation generated as part of your evaluation will be available to you and to your Primary Care Physician (PCP). Use of this material to complete such forms will be at the discretion of your PCP/referring physician Chayito aMrtínez APRN.TERENCE 02/28/2024 3:43 PM Addendum Heart monitor Send labs to review Conservative measures Monitor blood pressure and heart rates daily Follow up 1 month (virtual) Conservative Measures Increased water intake (2-2.5 liters of water daily) Increased salt intake (3-5 grams daily) Compression stockings Cardiac Rehab/Exercise Conservative Measures: Make all postural changes from lying to sitting or sitting to standing slowly. Drink to 2.0 -2.5 L of fluids per day. With bad symptoms, drink 500 cc of water quickly. This will result in an increased blood pressure within 5 minutes of drinking the water. The effect will last up to one hour and may improve orthostatic intolerance. Increase sodium in the diet to 3 - 5 g per day. If not helpful and BP is stable, may try 5-7 g per day. IF BLOOD PRESSURE RISES OR IS RISING CUT BACK ON SALT LOADING. Liquid IV, Nuun tabs, powerade / gatorade (zero formulations are OK), pedialyte, LMNT, Drip drop, Body Armor are all OK. Avoid large meals which can cause low blood pressure during digestion. It is better to eat smaller meals more often than three large meals. Avoid alcohol. Alcohol and cause blood to pool in the legs which may worsen low blood pressure reactions when standing. Avoid excessive caffeine intake as it may increase urine production and reduce blood volume. Perform lower extremity exercises to improve strength of the leg muscles. This will help prevent blood from a pooling in the legs when standing and walking. Preferred exercises are walking, squatting or stationery bicycling. An increased exercise duration by weekly should be considered. Use custom fitted elastic support stockings. These will reduce a tendency for blood to pool in the legs when standing and may improve orthostatic intolerance. Please try 30-40 mmHg compression. Raise the head of the bed by 6 to 10 inches. The entire bed must be at an angle. Raising only the head portion of the bed at waist level or using pillows will not be effective. Raising the head of the bed will reduce urine formation overnight and there will be more volume in the circulation in the morning. Use physical counter maneuvers such as leg crossing, or leg raising and resting the leg on a chair. These maneuvers increase blood pressure and can improve orthostatic intolerance quickly and transiently. Referring Provider: GAEL FLORES [[id number]] Allergies As of Date: 02/28/2024 (Not on File) Date Reviewed: 02/28/2024 Reviewed by: Ольга Wesley MA - Fully Assessed Reason for Visit: New Patient [172] Cmt: POTS last episode was Wednesday and she passed out was recently diginose. Heart racing currently she get hot passed out Wednesday with last episode Primary Visit Diagnosis:POTS (postural orthostatic tachycardia syndrome) [G90.A] Other Visit Diagnoses:Malaise and fatigue [R53.81, R53.83] Transient loss of consciousness [R55] Order(s):OUTSIDE VENDOR CARDIAC OUTPATIENT EXTENDED RHYTHM RECORDING (WITHOUT TELEMETRY) [0962574] Order #: [id number]: 1 COMPRESSION STOCKINGS [[id number]] Order #: [id number] Prescriptions as of 02/28/2024 - LEXAPRO 10 mg tablet Take 10 mg by mouth once daily. - ethinyl estradiol/drospirenone (VESTURA, 28, ORAL) Take 3 mg by mouth once daily. - SUMAtriptan (IMITREX) 25 mg tablet Take 25 mg by mouth as needed for migraine headache (see administration instructions). May repeat dose after 2 hours if needed. Maximum daily dose is 200 mg per day. Problem List As Of Date: 02/28/2024 (None) Other instructions from your clinician: Heart monitor Send labs to review Conservative measures Monitor blood pressure and heart rates daily Follow up 1 month (virtual) Conservative Measures Increased water intake (2-2.5 liters of water daily) Increased salt intake (3-5 grams daily) Compression stockings Cardiac Rehab/Exercise Conservative Measures: Make all postural changes from lying to sitting or sitting to standing slowly. Drink to 2.0 -2.5 L of fluids per day. With bad symptoms, drink 500 cc of water quickly. This will result in an increased blood pressure within 5 minutes of drinking the water. The effect will last up to one hour and may improve orthostatic intolerance. Increase sodium in the diet to 3 - 5 g per day. If not helpful and BP is stable, may try 5-7 g per day. IF BLOOD PRESSURE RISES OR IS RISING CUT BACK ON SALT LOADING. Liquid IV, Nuun tabs, powerade / gatorade (zero formulations are OK), pedialyte, LMNT, Drip drop, Body Armor are all OK. Avoid large meals which can cause low blood pressure during digestion. It is better to eat smaller meals more often than three large meals. Avoid alcohol. Alcohol and cause blood to pool in the legs which may worsen low blood pressure reactions when standing. Avoid excessive caffeine intake as it may increase urine production and reduce blood volume. Perform lower extremity exercises to improve strength of the leg muscles. This will help prevent blood from a pooling in the legs when standing and walking. Preferred exercises are walking, squatting or stationery bicycling. An increased exercise duration by weekly should be considered. Use custom fitted elastic support stockings. These will reduce a tendency for blood to pool in the legs when standing and may improve orthostatic intolerance. Please try 30-40 mmHg compression. Raise the head of the bed by 6 to 10 inches. The entire bed must be at an angle. Raising only the head portion of the bed at waist level or using pillows will not be effective. Raising the head of the bed will reduce urine formation overnight and there will be more volume in the circulation in the morning. Use physical counter maneuvers such as leg crossing, or leg raising and resting the leg on a chair. These maneuvers increase blood pressure and can improve orthostatic intolerance quickly and transiently. Encounter Status:Closed by CHAYITO MARTÍNEZ on 02/28/24 PROCEDURE Observed: 02/28/2024 2:08 PM Status: COMPLETED Source: [facility] HNO ID: [id number] Author: ARIANA ZARATE MD Service: ? Author Type: Physician Type: Procedures Filed: 03/17/2024 09:06 Note Text: Patient Name: Maykel Brock : 2000 Ordering Provider: CHAYITO MARTÍNEZ Indication: G90.A Postural Orthostatic Tachycardia Syndrome Type of Monitor: Extended Monitoring-Zio Patch Enrollment Dates: 03/04/2024-03/12/2024 IRHYTHM FINDINGS: - Underlying rhythm was sinus rhythm. - No significant arrhythmias. - Triggered events correlated with sinus rhythm. Ariana Zarate MD MPH FAC ALLERGIES No Allergies Records Found ENCOUNTERS ADMIT/DISCHARGE ACCOUNT NUMBER ADMITTING ENCOUNTER CLASS LOC ATION SOURCE 02/28/2024/ 4 [id number] [facility] PAYERS ENCOUNTER GUARANTOR PAYER SUBSCRIBER SOURCE 02/28/2024 Primary Insurance:AVINASH Owens Number: [id number] Date:[id number] Name:Nick BROCKDOB: 2023 [place] [address] [facility]
[2025-01-15 04:01] VITALS: BP 118/85; PULSE 111; RESP 18; TEMP 36.1; O2SAT 100; BMI 31.4
--- NOTE | 2025-01-15 04:15 | CT_ITS ---
PROCEDURE: ABDOMEN/PELVIS W IV CONT ONLY 01/15/2025 REASON FOR EXAM: RLQ PAIN TECHNIQUE: Procedure Code: [id number] Modality: CT Procedure: ABDOMEN/PELVIS W IV CONT ONLY Coronal and Sagittal reconstruction series were provided. CONTRAST: isovue 370 VOLUME: 100 mL One or more dose reduction techniques were used (e.g., Automated exposure control, adjustment of the mA and/or kV according to patient size, use of iterative reconstruction technique. RADIATION DOSE SUMMARY: CTDI Vol 13.71 mGy DLP :713.64 mGycm COMPARISON: 01-Dec-2021 FINDINGS: The appendix appears unremarkable. No right iliac inflammatory changes. Colonic fecal loading. The small bowel loops are unremarkable. The stomach is unremarkable. Average sized liver showing homogenous parenchymal attenuation. No dilated intra or extra-hepatic biliary tracts. Gall bladder showing no radiodense calculi. No abnormal mural thickening. Clear surrounding fat planes with no sizeable collections. Normal appearance of the pancreas with clear surrounding fat planes. The spleen, adrenal glands, aorta and IVC are unremarkable. Both kidneys are of average size and showing smooth outline with preserved parenchymal thickness. No renal calculi. No hydronephrosis. Tiny right renal hypodense cortical cysts. Distension of the urinary bladder showing no obvious masses. No obvious masses related to the pelvic viscera. Left corpus luteum small cyst is noted. Mild free pelvic fluid, likely physiological. No free air. No obvious pathologically enlarged lymph nodes. Scanned osseous structures show no osseous destruction. Scanned lung bases show no obvious abnormalities. CT/Abdomen/Pelvis W IV Cont ONLY IMPRESSION: No obvious appendicitis. No acute pelvi-abdominal abnormalities, collections or free air. Reading [facility]
--- NOTE | 2025-01-15 04:16 | EX.ED.DYSGE1 ---
HPI History of Present Illness Chief Complaint: Abd Pain Narrative Narrative: Patient is a 25-year-old female with no known significant past medical history who presents to the emergency department with chief complaint of abdominal pain. Patient states that before going to bed she had abdominal pain around her bellybutton and now around 2 AM she woke up with pain in the right lower portion of her abdomen. Patient denies any previous abdominal surgeries. Patient denies any sick contacts. States that she has had some nausea vomiting now. [facility] POTS (postural orthostatic tachycardia syndrome) Pneumonia Head ache Gastrointestinal problem Bone fracture Urinary tract infection Concussion without loss of consciousness, initial encounter Asthma Home Medications Medication Instructions Recorded Last Taken Type escitalopram oxalate 10 mg tablet 10 mg PO DAILY #90 tabs 02/11/24 Unknown Rx compression socks, medium #2 ea 02/22/24 Unknown Rx fluticasone propionate 50 1 spray intranasal QDAY #16 grams 03/28/24 Unknown Rx mcg/actuation nasal spray,suspension (Flonase Allergy Relief) sumatriptan succinate 25 mg tablet 25 mg PO Q2H PRN migraine headache 06/27/24 Unknown History (Imitrex) drospirenone 3 mg-ethinyl 1 tab PO DAILY #84 TABLETS 01/10/25 Unknown Rx estradiol 0.02 mg tablet (Vestura (28)) Held on 01/15/25. Instructions: MD Ordered dicyclomine 20 mg tablet 20 mg PO TID PRN abdominal pain 01/15/25 Unknown Rx #20 tabs ondansetron 4 mg disintegrating 4 mg PO Q6H PRN nausea and 01/15/25 Unknown Rx tablet vomiting #20 tabs Allergy/AdvReac Type Severity Reaction Status Date / Time No Known Allergies Allergy Verified 01/15/25 04:01 Family History Father Type 1 diabetes Hypertension Mother Hypertension Grandfather Cancer prostate Grandmother Cancer uterine Surgical History History of reduction of closed dislocation H/O rhinoplasty Social History adopted: No household members: family housing: house number of children: 0 current occupational status: employed 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 sexually active: Yes Smoking Status: Never smoker Electronic Cigarette Use: not used alcohol intake: never substance use type: does not use what type of physical activity do you participate in: walking frequency: 3-4 times per week seatbelt use: always do you feel safe at home: Yes additional social history: Boyfriend - Ab ROS ROS ED ROS Narrative Constitutional: Denies any fevers or chills Abdomen: Complains of abdominal pain as noted above as well as nausea vomiting : Denies urinary symptoms Neurological: Denies any numbness, weakness, tingling Musculoskeletal: Denies back pain Skin: Denies any rashes or lesions EXAM Physical Exam Narrative Exam Narrative: General: Patient was lying in bed rest comfortably did not appear to be in acute distress Head: Atraumatic, normocephalic Eyes: PERRL bilaterally, EOMI bilaterally, no conjunctival injection noted Neck: Soft, supple, trachea midline Cardiovascular: Patient tachycardic with a regular rhythm Respiratory: Clear to auscultation bilaterally Abdomen: Soft, nondistended, tenderness to palpation in the right lower quadrant no rebound or guarding exam Extremities: +5/5 strength noted in the bilateral lower extremities Neurological: Patient follow commands knew that she was at [facility] years 2024 Skin: Warm, dry, intact no rashes or lesions noted Const Vital Signs: 01/15/25 04:01 Temperature 97 F L Temperature Source Oral Pulse Rate 111 H Respiratory Rate 18 Blood Pressure 118/85 H Blood Pressure Mean 96 Pulse Ox 100 MDM MDM MDM Narrative Medical decision making narrative: Patient is a 25-year-old female who presented to the emergency department the chief complaint of abdominal pain. On the differential diagnose includes but not limited to appendicitis, constipation, pancreatitis, . Once workup is obtained reviewed she will be reevaluated. Patient be given IV fluids Zofran and morphine. Patient is CBC reviewed showed no evidence of leukocytosis white blood count 5.8, hemoglobin 13.4, platelet count of 232. Patient sodium is 139, potassium 3.7, creatinine was 0.80. Patient's AST and ALT are 20 and 25 respectively, lipase was 29. Patient test negative. Patient's CT abdomen pelvis with IV contrast reviewed and showed no acute appendicitis no other acute findings noted. On reevaluation the patient at 6:20 AM she is feeling better she would like to go home at this point time. Repeat abdominal exam performed and her abdomen remains benign. Discussed results with her and family at bedside they are advised to return with worsening symptoms or concerns otherwise they are to follow-up with the family physician outpatient setting. All question concerns answered she was discharged home in stable condition. Lab Data Labs: Laboratory Results - last 24 hr 01/15/25 04:26 WBC 5.8 RBC 4.60 Hgb 13.4 Hct 40.0 MCV 87.0 MCH 29.1 MCHC 33.5 RDW Std Deviation 39.2 RDW Coeff of Stuart 12.4 Plt Count 232 MPV 10.3 Immature Gran % (Auto) 0.300 Neut % (Auto) 44.4 L Lymph % (Auto) 41.2 H Walker % (Auto) 8.9 Eos % (Auto) 4.5 Baso % (Auto) 0.7 Absolute Neuts (auto) 2.6 Absolute Lymphs (auto) 2.37 Nucleated RBC % 0 Sodium 139 Potassium 3.7 Chloride 106 Carbon Dioxide 21.1 Anion Gap 12 BUN 16 Creatinine 0.80 Estim Creat Clear Calc 143.86 Est GFR (MDRD) Non-Af 106 BUN/Creatinine Ratio 20.0 Glucose 110 H Calcium 9.0 Total Bilirubin 0.40 AST 20 ALT 25 Alkaline Phosphatase 62 Total Protein 6.6 Albumin 4.0 Globulin 2.6 Albumin/Globulin Ratio 1.5 Lipase 29 Serum , Qual NEGATIVE Radiography Diagnostic Testing: Clinical Impression(s) from Imaging Studies Abdomen/Pelvis CT 01/15/25 04:15 IMPRESSION: No obvious appendicitis. No acute pelvi-abdominal abnormalities, collections or free air. Reading [facility] Discharge Plan Triage Chief Complaint: Abd Pain ED Provider: Francisco Lugo Dx/Rx/DC Orders Clinical Impression: Abdominal pain, POTS (postural orthostatic tachycardia syndrome) Prescriptions: New dicyclomine 20 mg tablet 20 mg PO TID PRN (Reason: abdominal pain) Qty: 20 0RF ondansetron 4 mg tablet,disintegrating 4 mg PO Q6H PRN (Reason: nausea and vomiting) Qty: 20 0RF No Action fluticasone propionate [Flonase Allergy Relief] 50 mcg/actuation spray,suspension 1 spray intranasal QDAY Qty: 16 0RF Rx Instructions: administer into each nostril sumatriptan succinate [Imitrex] 25 mg tablet 25 mg PO Q2H PRN (Reason: migraine headache) Rx Instructions: take 1 tab at onset of headache; if no relief may repeat 1 tab after at least 2 hrs; max = 4 tabs/24 hr orally PRN; escitalopram oxalate 10 mg tablet 10 mg PO DAILY Qty: 90 4RF (DME) compression socks, medium Misc See Rx Instructions .Route Qty: 2 1RF Rx Instructions: As directed drospirenone-ethinyl estradiol [Vestura (28)] 3-0.02 mg tablet 1 tab PO DAILY Qty: 84 4RF Primary Care Provider: Benita Flores Referrals: Benita Flores MD [Primary Care Provider, Internal Medicine] Activity Restrictions/Additional Instructions: Your blood work did not show any acute findings here today. Your CT scan did not show any acute findings either. Return with worsening symptoms or any other concerns as we discussed here. Take prescriptions are sent to pharmacy as prescribed. Print Language: German Disposition Disposition: Home, Self Care
[2025-01-15 04:33] LABS: Hematocrit 40.0 % (37-47); Hemoglobin 13.4 g/dL (12.0-15.0); Immature Granulocytes Count 0.020 X10^3/uL (0.0-0.0); Mean Corp Hgb Conc 33.5 g/dL (32-36); Mean Corpuscular Volume 87.0 fL (81-99); Mean Platelet Vol. 10.3 fl (6.2-12.0); NRBC Flagged by Analyzer 0 % (0-5); Platelet Count 232 K/mm3 (150-450); RBC Distribution Width CV 12.4 % (11.6-14.6); RBC Distribution Width SD 39.2 fl (35.1-43.9); Red Blood Count 4.60 M/mm3 (4.2-5.4); White Blood Count 5.8 K/mm3 (4.4-11.0)
[2025-01-15] MEDS: 0.9% Normal Saline (1000mL) 1,000 ML 999 ML IV (04:36)
[2025-01-15 04:42] LABS: Internal QC Validated? YES +Cl - CLEAR BKGD; Pregnancy, Serum, hCG Quali. NEGATIVE Negative; Record Kit Lot#, Serum Preg. 0000964736
[2025-01-15 04:52] LABS: AST(SGOT) 20 U/L (<=31); Alanine Aminotransfer ALT/SGPT 25 U/L (<=34); Albumin, Serum 4.0 g/dL (3.5-5.0); Alkaline Phosphatase 62 U/L (35-104); Anion Gap 12 (5-15); BUN 16 mg/dL (4-19); BUN/Creat Ratio 20.0 RATIO (10-20); Calcium,Total 9.0 mg/dL (7.6-11.0); Carbon Dioxide 21.1 mmol/L (21.0-32.0); Chloride 106 mmol/L (98-108); Estimated Creatinine Clearance 143.86 ml/min (50-250); Globulin 2.6 g/dL (2.2-4.2); Glucose 110 mg/dL (70-99); Lipase 29 U/L (13-75); Potassium 3.7 mmol/L (3.3-5.1)
[2025-01-15 05:24] LABS: Mucous, Urine 0 SEEN /hpf (<or=2+)
[2025-01-15 05:25] LABS: Color, Urine Yellow (Yellow); Glucose, Dipstick Normal (Normal); Ketone-Dipstick Negative (Negative); Leukocyte Esterase-Dipstick 25 /ul (Negative); Nitrite-Dipstick Negative (Negative); Occult Blood-Urine 10 /ul (Negative); Protein-Dipstick Negative (Negative); Specific Gravity, Urine 1.010 (1.002-1.030); Urine Bilirubin Dipstick Negative (Negative)
[2025-01-15 06:01] VITALS: BP 117/77; PULSE 72; RESP 16; O2SAT 99
[2025-01-15 06:30] VITALS: BP 117/77; PULSE 72; RESP 16; TEMP 36.1; O2SAT 99
[2025-01-15 06:36] LABS: Red Blood Cells-Urine 0-5 SEEN /hpf (0-5); Squamous Epithelial Cells - UA 5-10 SEEN /hpf (5-10)
== END 2025-01-15 06:38 | disposition home or self-care (01) ==
PROVIDERS: Emergency Provider Emergency Medicine; PCP Internal Medicine; Visit Provider Emergency Medicine
DX: R10.9 Unspecified abdominal pain (principal); G90.A Postural orthostatic tachycardia syndrome [POTS]
CPT/HCPCS: 74177; 80053; 81001; 83690; 84703; 85025; 96361; 96374; 96375; 99283; Q9967; A4216; J2405

== ENCOUNTER → 2025-01-19 | Outpatient (CLI) | payer BC, SELFPAY ==
[2025-01-19 14:36] LABS: Mucous, Urine 0 SEEN /hpf (<or=2+)
[2025-01-19 15:20] LABS: Color, Urine Yellow (Yellow); Glucose, Dipstick Normal (Normal); Ketone-Dipstick Negative (Negative); Leukocyte Esterase-Dipstick Negative /ul (Negative); Nitrite-Dipstick Negative (Negative); Occult Blood-Urine 150 /ul (Negative); Protein-Dipstick 15 mg/dl (Negative); Specific Gravity, Urine 1.015 (1.002-1.030); Urine Bilirubin Dipstick Negative (Negative)
[2025-01-19 15:32] LABS: Red Blood Cells-Urine 0-5 SEEN /hpf (0-5); Squamous Epithelial Cells - UA 0-5 SEEN /hpf (5-10)
[2025-01-19 15:38] LABS: CRP 3.94 mg/L (0.0-3.0)
[2025-01-22 15:08] LABS: ANTINUCLEAR ANTIBODIES DIRECT Negative (Negative)
== END | disposition home or self-care (01) ==
LOC: LAB 14:32
PROVIDERS: PCP Internal Medicine; Referring Provider Physician Assistant; Visit Provider Physician Assistant
DX: R35.0 Frequency of micturition (principal); R76.89 Other specified abnormal immunological findings in serum; R10.9 Unspecified abdominal pain; N91.1 Secondary amenorrhea
CPT/HCPCS: 36415; 81001; 84443; 85652; 86038; 86140; 86160; 86225; 87086; 87088

== ENCOUNTER → 2025-02-22 | Outpatient (CLI) | payer BC, SELFPAY ==
--- NOTE | 2025-02-22 08:42 | NM_ITS ---
PROCEDURE: HEPATOBILLIARY IMG W/PHARM INT 02/22/2025 REASON FOR EXAM: NAUSEA WITH REFLUX TECHNIQUE: Procedure Code: [id number] Modality: CT Procedure: HEPATOBILLIARY IMG W/PHARM INT, with gallbladder ejection fraction Intravenous Choletec with planar imaging of the abdomen. RADIOPHARMACEUTICAL: Intravenous administration of 5.8 mCi technetium 99 M mebrofenin. For the gallbladder ejection fraction component, intravenous administration of 2 mcg sincalide. COMPARISON: None. FINDINGS: Satisfactory hepatic uptake and excretion is seen.. Normal gallbladder visualization with the gallbladder identified by 15 minutes. Small bowel activity is clearly apparent by the 45 minute film. A normal gallbladder ejection fraction of 68% is seen of the 29 minute timeframe. NM/Hepatobilliary Img w/Pharm Int IMPRESSION: 1. Normal gallbladder ejection fraction of 68%. 2. Negative hepatobiliary scan. Reading Location: [place] [id number]
== END | disposition home or self-care (01) ==
LOC: NM 08:41
PROVIDERS: PCP Internal Medicine; Referring Provider Physician Assistant; Visit Provider Physician Assistant
DX: R11.0 Nausea (principal)
CPT/HCPCS: 78227; A9537; J2805